=== PATIENT | female | born 1960 | race Caucasian/White ===

== ENCOUNTER 2016-06-04 16:14 | Inpatient (IN) | payer MEDICARE, OTHER ==
[~2016-06-04] VITALS: Ht 167.6 cm; Wt 121.6 kg
[2016-06-04] MEDS ORDERED: SOD CHLORIDE 0.9% 1,000 ML IV STA (16:43)
[2016-06-04] MEDS ORDERED: HYDROmorphONE 1 MG/ML SYG IV STA (16:43)
[2016-06-04] MEDS ORDERED: ONDANSETRON 4 MG INJ IV STA (16:43)
[2016-06-04 17:28] LABS: ADD SCAN DIFF NO
[2016-06-04 17:30] LABS: BASOPHILS % 0.4 % (0.0-2.0); EOSINOPHILS # 0.2 10^3/ul (0.0-0.5); EOSINOPHILS % 1.9 % (0.0-7.0); HEMATOCRIT 37.8 % (37.0-47.0); HEMOGLOBIN 12.5 g/dl (12.0-16.0); LYMPHOCYTES # 2.1 10^3/ul (0.8-2.9); LYMPHOCYTES % 23.3 % (15.0-51.0); MEAN CORPUSCULAR HEMOGLOBIN 30.5 pg (29.0-33.0); MEAN CORPUSCULAR HGB CONC 33.1 g/dl (32.0-37.0); MEAN CORPUSCULAR VOLUME 92.2 fl (82.0-101.0); MEAN PLATELET VOLUME 10.3 fl (7.4-10.4); MONOCYTE # 0.6 10^3/ul (0.3-0.9); MONOCYTES % 6.1 % (0.0-11.0); NEUTROPHIL # 6.2 10^3/ul (1.6-7.5); NEUTROPHILS % 68.1 % (39.0-77.0); PLATELET COUNT 246 10^3/UL (140-415); RED CELL DISTRIBUTION WIDTH 12.3 % (11.5-14.5); WHITE BLOOD COUNT 9.2 10^3/ul (4.8-10.8)
[2016-06-04 17:54] LABS: ALBUMIN 3.9 g/dl (3.3-4.9); BILIRUBIN,INDIRECT 0.1 mg/dl (0-1.1); BILIRUBIN,TOTAL 0.1 mg/dl (0.2-1.3); CALCIUM 9.5 mg/dl (8.4-10.2); CREATININE 0.86 mg/dl (0.44-1.00); POTASSIUM 3.6 mmol/L (3.5-5.1); TOTAL PROTEIN 7.4 g/dl (6.1-8.1)
[2016-06-04 17:55] LABS: ALBUMIN/GLOBULIN RATIO 1.11
--- NOTE | 2016-06-04 18:24 | RADRPT ---
PROCEDURE: CT scan of the abdomen and pelvis without IV contrast. CLINICAL INDICATION: Mid abdominal pain. TECHNIQUE: Thin section axial, coronal and sagittal images were performed through the abdomen and pelvis without contrast. Radiation Dose: CTDI: 23 and DLP: 1294. One or more of the following dose reduction techniques were used: - Automated exposure control. - Adjustment of the mA and/or kV according to patient size. Use of iterative reconstruction technique. COMPARISON: Chest x-ray 03/14/2016 06:18 a.m. FINDINGS: Soft tissues: Pain midline paraumbilical hernia is noted below.. Lungs and pleural spaces: There is peribronchial cuffing and pulmonary hyperinflation. There are pe ripheral areas of atelectasis in the right lower lobe. Heart: Normal. No pericardial effusion is noted. The epicardial fat pad is noted near the left hea rt border. The liver, common bile duct and gallbladder: The liver is enlarged measuring 19.5 cm AP. The gallbl adder surgically removed with clips in the juan daniel hepatis area. No intrahepatic biliary ductal dilat ation is identified. Gastrointestinal: There is a midline umbilical hernia which contains small bowel loops and omental f at measuring up to 5.7 cm sagittal by 3.3 cm AP by 7.9 cm. There is a area of increased attenuation inferior to the hernia of increased attenuation measuring 3.3 by 2 by 2.6 cm. This may be the resu lt of infarcted fat or phlegmonous change secondary to infection inferior to the hernia site at the level of the umbilicus. The stomach and small bowel loops have a normal caliber. No mechanical small-bowel obstruction is i dentified. There are diverticula in the sigmoid colon. There are bilateral inguinal hernias which contain fat but no intra-abdominal. The vermiform appendix is not clearly visualized but there is n o signs of appendicitis. Pancreas: Normal. Kidneys, bladder and adrenal glands : There is a 1.3 cm nonobstructive nephrolith with cortical scar ring adjacent to the nephrolith in the lateral portion of the lower third of the left kidney. There is a 1 mm in nonobstructive nephrolith in the ventral lower third of the right kidney. There is no evidence of hydronephrosis. No solid mass is identified. Spleen: Normal. Lymph nodes: Normal. A 5 mm normal lymph nodes identified just above the ventral aspect of the right diaphragm. Reproductive system and pelvis : The uterus is anteflexed a normal in size. There is a 1.3 CC intra mural lesion in the ventral lower uterine segment suspicious for a leiomyoma or Nabothian cyst. Bony elements: There are degenerative osteophytes in the thoracic and lumbosacral spine. No acute b cliff fracture or bone metastasis is identified. Vasculature: Normal. IMPRESSION: 1. There is a large midline. Umbilical hernia measuring 5.7 cm by 3.3 see by 7.9 cm containing ome ntal fat in entrap small bowel loops. Inferior to the hernia is an area of increased attenuation whi ch may be the result of phlegmonous change due to inflammation of the fat. A small abscess at this site is not excluded. 2. Hepatomegaly. 3. Diverticulosis of the sigmoid colon. 4. Enlarged bilateral inguinal hernias containing fat but no intra-abdominal. 5. The vermiform appendix is not visualized but there are no secondary signs of appendicitis. 6. 1.3 mm nonobstructive nephrolith upper lateral portion of the lower third of the left kidney. 1 mm nonobstructive nephrolith ventral upper portion lower third right kidney. 7. Nabothian cyst versus leiomyoma in the midline of the lower uterine segment. This is best isabelle cterize with a pelvic sonogram. 8. Normal pancreas. 9. Findings were phoned to Dr. Apple. RPTAT:AAJJ Physician Jasper Date Time Electronically viewed and signed by Physician Jasper on 06/04/2016 18:24 /
[2016-06-04] MEDS ORDERED: ONDANSETRON 4 MG INJ IV PRN (19:30)
[2016-06-04] MEDS ORDERED: ACETAMINOPHEN 325 MG TAB PO PRN (19:30)
--- NOTE | 2016-06-04 19:35 | ERA ---
ER Documentation Chief Complaint Date/Time DATE: 06/04/16 TIME: 19:32 Chief Complaint MID ABDOMINAL PAIN 10/10,NAUSEA STARTED TODAY HPI Patient is a 56-year-old female with no medical problems who presents with abdominal pain. She has upper abdominal pain that she feels might be another hernia. She said that she had a hernia surgery done 2013. The pain started 1 hour prior to arrival. The pain is constant and sharp in nature. She has had nausea but no vomiting. She has subjective fever. She has had no treatment as of yet. She does not know the name of her primary doctor. ROS All systems reviewed and are negative except as per history of present illness. Medications Home Meds No Active Prescriptions or Reported Meds Allergies Allergies: Coded Allergies: No Known Allergy (Unverified , 06/04/16) PMhx/Soc History of Surgery: Yes (umbilical hernia) Hx Neurological Disorder: No Hx Respiratory Disorders: No Hx Psychiatric Problems: No Hx Alcohol Use: No Hx Substance Use: No Hx Tobacco Use: No Smoking Status: Never smoker FmHx Family History: No diabetes Physical Exam Vitals Vital Signs Date Time Temp Pulse Resp B/P Pulse Ox O2 Delivery O2 Flow Rate FiO2 06/04/16 18:30 97.7 89 18 143/72 100 Room Air 06/04/16 17:22 96 24 139/76 97 Room Air 06/04/16 16:16 98.1 105 18 132/82 98 Physical Exam Const: Moderate distress secondary to pain Head: Atraumatic Eyes: Normal Conjunctiva ENT: Normal External Ears, Nose and Mouth. Neck: Full range of motion..~ No meningismus. Resp: Clear to auscultation bilaterally Cardio: Regular rate and rhythm, no murmurs Abd: Soft, periumbilical tenderness to palpation without rebound or guarding , obese Skin: No petechiae or rashes Back: No midline or flank tenderness Ext: No cyanosis, or edema Neur: Awake and alert Psych: Normal Mood and Affect Result Diagram: 06/04/16 1700 06/04/16 1700 Results 24 hrs Laboratory Tests Test 06/04/16 17:00 White Blood Count 9.210^3/ul Red Blood Count 4.1010^6/ul Hemoglobin 12.5g/dl Hematocrit 37.8% Mean Corpuscular Volume 92.2fl Mean Corpuscular Hemoglobin 30.5pg Mean Corpuscular Hemoglobin Concent 33.1g/dl Red Cell Distribution Width 12.3% Platelet Count 15659^3/UL Mean Platelet Volume 10.3fl Neutrophils % 68.1% Lymphocytes % 23.3% Monocytes % 6.1% Eosinophils % 1.9% Basophils % 0.4% Nucleated Red Blood Cells % 0.0/100WBC Neutrophils # 6.210^3/ul Lymphocytes # 2.110^3/ul Monocytes # 0.610^3/ul Eosinophils # 0.210^3/ul Basophils # 0.010^3/ul Nucleated Red Blood Cells # 0.010^3/ul Sodium Level 140mmol/L Potassium Level 3.6mmol/L Chloride Level 107mmol/L Carbon Dioxide Level 25mmol/L Anion Gap 12 Blood Urea Nitrogen 14mg/dl Creatinine 0.86mg/dl Glucose Level 119mg/dl Calcium Level 9.5mg/dl Total Bilirubin 0.1mg/dl Direct Bilirubin 0.00mg/dl Indirect Bilirubin 0.1mg/dl Aspartate Amino Transf (AST/SGOT) 14IU/L Alanine Aminotransferase (ALT/SGPT) 20IU/L Alkaline Phosphatase 89IU/L Total Protein 7.4g/dl Albumin 3.9g/dl Globulin 3.50g/dl Albumin/Globulin Ratio 1.11 Lipase 72U/L Current Medications Medications (Trade) Dose Ordered Sig/Mg Route PRN Reason Start Time Stop Time Status Last Admin Dose Admin Sodium Chloride (NS) 1,000 ml @ 1,000 mls/hr Q1H STAT IV 06/04/16 16:43 06/04/16 17:42 DC 06/04/16 17:44 Hydromorphone HCl (Dilaudid) 1 mg ONCE STAT IV 06/04/16 16:43 06/04/16 16:46 DC 06/04/16 17:43 Ondansetron HCl (Zofran Inj) 4 mg ONCE STAT IV 06/04/16 16:43 06/04/16 16:46 DC 06/04/16 17:43 Ondansetron HCl (Zofran Inj) 4 mg BRIDGE ORDER PRN IV NAUSEA AND/OR VOMITING 06/04/16 19:30 06/05/16 19:29 Acetaminophen (Tylenol Tab) 650 mg ER BRIDGE PRN PO MILD PAIN/FEVER 06/04/16 19:30 06/05/16 19:29 Procedures/MDM CT scan shows incarcerated hernia with small bowel per radiology. Patient is a 56-year-old female with previous hernia who presents with an incarcerated umbilical hernia. The patient will need admission to a medical surgical bed. I spoke with Dr. Jeffrey from the panel team for admission. I spoke with Dr. Sanchez who is a surgeon marketing communications manager. He will see the patient in consultation. The patient will have preoperative studies done. At this point I doubt appendicitis, cholecystitis, or pancreatitis. Departure Diagnosis: Primary Impression: Incarcerated hernia Additional Impression: Abdominal pain Qualified Code: R10.84 - Generalized abdominal pain Condition: MEREDITH Bailey MD Jun 04, 2016 19:35
[2016-06-05] VITALS (18 sets, daily range): BP systolic 132–179; BP diastolic 62–98; PULSE 70–86; RESP 14–26; TEMP 97.7; Ht 167.6 cm; Wt 121.6 kg
[2016-06-05] MEDS ORDERED: ONDANSETRON 4 MG INJ IV PRN ×3 (01:30→19:30)
[2016-06-05] MEDS: DEXTROSE 5%-0.45% NACL 1,000 ML IV SCH ×4 (02:46→21:30)
[2016-06-05] MEDS: morphine 4 MG/ML VIAL IV PRN (05:59)
[2016-06-05] MEDS ORDERED: CEFAZOLIN 1 GM INJ ONE (07:00)
[2016-06-05] MEDS ORDERED: metroNIDAZOLE 500 MG/100 ML NS IVPB ONE (07:00)
--- NOTE | 2016-06-05 07:02 | HP ---
DATE OF ADMISSION: 06/04/2016 TIME SEEN: 2300. CHIEF COMPLAINT: Abdominal pain. HISTORY OF PRESENT ILLNESS: The patient is a 56-year-old female with a history of an abdominal dipti ia repair over 2 years ago, who presented to the emergency department with abdominal pain x1 day. T he pain is diffuse and associated with nausea, but no vomiting. She denied any chest pain, shortnes s of breath or palpitations. When she presented to the ER she was tachycardic with a heart rate of 105. Otherwise the rest of he r vitals were stable. CT abdomen and pelvis showed a large midline umbilical hernia measuring 5.7 x 3.3 x 7.9 cm, containing omental fat in entrapped small bowel loops. Inferior to the hernia is an area of increased attenuation which may be the result of phlegmonous change due to inflammation of t he fat. A small abscess at the site is not excluded. Also noted were enlarged bilateral inguinal h ernias containing fat, but no intraabdominal. Diverticulosis of the sigmoid colon and hepatomegaly. A consult to the on-call surgeon, Dr. Sanchez, was placed by the ER physician. Her CBC and CMP are unremarkable. REVIEW OF SYSTEMS: A 12-point review of systems was performed and negative except as mentioned in th e HPI. PAST MEDICAL HISTORY: As per HPI. PAST SURGICAL HISTORY: Hernia repair in 2013. SOCIAL HISTORY: Denied a history of tobacco, alcohol or illicit drug abuse. ALLERGIES: KNOWN DRUG ALLERGIES. HOME MEDICATIONS: None. PHYSICAL EXAMINATION: VITAL SIGNS: Blood pressure 161/100, heart rate 87, respiratory rate 18, temperature earlier was 97 .7, oxygen saturation 100% on room air. GENERAL: The patient displays some distress due to abdominal pain. She is, however, alert, oriente d and answering questions appropriately. HEENT: No obvious head deformity. Extraocular muscles are intact. CARDIOVASCULAR: Tachycardic with a regular rhythm. LUNGS: Clear. ABDOMEN: Soft. There is tenderness to palpation diffusely, with no guarding, no rigidity. EXTREMITIES: No edema. NEUROLOGIC: No focal deficits. LABORATORY: CBC and CMP are within normal limits. IMAGING: CT abdomen and pelvis with results as mentioned in the HPI. IMPRESSION: 1. Incarcerated abdominal hernia. 2. Abdominal pain secondary to above. 3. History of hernia repair about 2 years ago. PLAN: Will keep n.p.o. Will place a NG tube to low intermittent suction. She will receive IV fluid . Will provide pain medication and antiemetics as needed. She is currently awaiting surgical evalu ation. Further workup and management per clinical course. Dictated By: CLAUDIA BRICENO/REGIS Conf#: [id number] DID#: [id number]
--- NOTE | 2016-06-05 08:06 | CONS ---
DATE OF ADMISSION: 06/04/2016 DATE OF CONSULTATION: SURGICAL CONSULTATION REASON FOR CONSULTATION: Incarcerated ventral incisional hernia. HISTORY OF PRESENT ILLNESS: The patient is a 56-year-old, morbidly obese patient, who presents to [facility] emergency room with sudden onset of abdominal wall pain. She had a ventral incisional hernia rep aired at [facility] in 2013. In the emergency room she was noted to have tenderness in the subcutaneous tissues above the incision and a CT scan showed incarcerated omentum and possible duncan l loops. The patient was admitted and surgical consultation was requested in that regard. She has had no visceral symptoms. She has had no fevers or chills. REVIEW OF SYSTEMS: HEAD, EYES, EARS, NOSE, THROAT: Unremarkable. PULMONARY: No history of pneumonia, shortness of breath or asthma. CARDIAC: No history of chest pain or NV. ABDOMEN: As in the HPI, and includes a history of laparoscopic cholecystectomy 5 years ago. OUTPATIENT MEDICATIONS: None. ALLERGIES: NONE. PHYSICAL EXAMINATION: GENERAL: The patient is a morbidly obese, 56-year-old female, who is in no acute distress. HEAD, EARS, EYES, NOSE, THROAT: Within normal limits. LUNGS: Clear. HEART: Regular rhythm. ABDOMEN: Obese. There is a well-healed lower vertical midline scar, including the umbilicus, which is slightly ulcerated. There is nonspecific fullness in the upper pole of the incision. EXTREMITIES: Unremarkable. LABORATORY DATA: The patient's hematocrit is 37.8, with a white count of 9,200. BUN, glucose and e lectrolytes are unremarkable. IMAGING: There is a large midline umbilical hernia measuring 5.7 cm x 7.9 cm, containing omental fat and entrapped small bowel loops. IMPRESSION: Incarcerated ventral incisional hernia, with no visceral symptoms. PLAN: The patient will require operative repair with possible bowel resection. The procedure and r isks have been outlined to the patient, who has an excellent understanding of the nature of her situ ation and agrees to the proposed plan of therapy, as outlined. Dictated By: ROMAINE BURNHAM/REGIS Conf#: [id number] DID#: [id number]
[2016-06-05] MEDS: FAMOTIDINE 20 MG INJ IV SCH ×2 (08:19→21:21)
--- NOTE | 2016-06-05 08:37 | RADRPT ---
PROCEDURE: Chest Radiograph. CLINICAL INDICATION: Preop TECHNIQUE: Single frontal chest radiograph. COMPARISON: None available FINDINGS: The cardiomediastinal silhouette is within normal limits. No infiltrate or effusion is seen. Th e bones are intact. IMPRESSION: 1. Unremarkable chest radiograph. RPTAT: KK .Xavier Cintron MD, MD Date Time Electronically viewed and signed by .Xavier Cintron MD, on 06/05/2016 08:37 .B/
[2016-06-05] MEDS ORDERED: BUPIVACAINE 0.25% (MPF) 30 ML INJ ONE (15:24)
--- NOTE | 2016-06-05 16:05 | PN ---
Date/Time of Note Date/Time of Note DATE: 06/05/16 TIME: 16:03 Assessment/Plan VTE Prophylaxis VTE Prophylaxis Intervention: SCD's Lines/Catheters IV [facility]ter [facility] (from [facility]): Peripheral IV Urinary Cath still in place: No Assessment/Plan Chief Complaint/Hosp Course Assessment and plan 1. Incarcerated abdominal hernia. Surgeon following. Tentative plan for surgical intervention. Continue on IV fluids. npo for now. Continue with analgesics as needed 2. Morbid obesity. Weight reduction advised. 3. Abdominal pain secondary to #1. Follow-up with surgeon recommendations. 4. History of umbilical hernia repair 2 years ago Disposition and plan: Tentative plan for surgical intervention. Follow-up with surgeon and recommendations. Follow up postop care Discussed at care with Problems: Subjective 24 Hr Interval Summary Free Text/Dictation Still reports having some abdominal discomfort. Exam/Review of Systems Vital Signs Vitals Vital Signs Date Time Temp Pulse Resp B/P Pulse Ox O2 Delivery O2 Flow Rate FiO2 06/05/16 08:13 97.4 79 20 132/62 96 06/05/16 00:41 Room Air Intake and Output 06/04/16 06/04/16 06/05/16 15:00 23:00 07:00 Intake Total 400 ml Balance 400 ml Exam General: Reports having some abdominal pain, morbidly obese Eyes: pupils equal round, Anicteric sclera Neck: Supple nontender, no JVD Cardiac: S1, S2 auscultated, regular rhythm and rate Pulmonary: No coarse rhonchi or breathing auscultated GI: Treatment. Tender upon palpation above umbilical area Extremities: No edema bilateral lower extremities Skin: Clean dry and intact Neurologic: Alert to person place and time and situation Results Result Diagram: 06/04/16 1700 06/04/16 1700 Results 24 hrs Laboratory Tests Test 06/04/16 17:00 White Blood Count 9.2 Red Blood Count 4.10 L Hemoglobin 12.5 Hematocrit 37.8 Mean Corpuscular Volume 92.2 Mean Corpuscular Hemoglobin 30.5 Mean Corpuscular Hemoglobin Concent 33.1 Red Cell Distribution Width 12.3 Platelet Count 246 Mean Platelet Volume 10.3 Neutrophils % 68.1 Lymphocytes % 23.3 Monocytes % 6.1 Eosinophils % 1.9 Basophils % 0.4 Nucleated Red Blood Cells % 0.0 Neutrophils # 6.2 Lymphocytes # 2.1 Monocytes # 0.6 Eosinophils # 0.2 Basophils # 0.0 Nucleated Red Blood Cells # 0.0 Sodium Level 140 Potassium Level 3.6 Chloride Level 107 Carbon Dioxide Level 25 Anion Gap 12 Blood Urea Nitrogen 14 Creatinine 0.86 Glucose Level 119 Calcium Level 9.5 Total Bilirubin 0.1 L Direct Bilirubin 0.00 Indirect Bilirubin 0.1 Aspartate Amino Transf (AST/SGOT) 14 L Alanine Aminotransferase (ALT/SGPT) 20 Alkaline Phosphatase 89 Total Protein 7.4 Albumin 3.9 Globulin 3.50 H Albumin/Globulin Ratio 1.11 Lipase 72 Medications Medications Current Medications Ondansetron HCl (Zofran Inj) 4 mg Q6H PRN IV NAUSEA AND/OR VOMITING; Start at 01:30 Morphine Sulfate 3 mg 3 mg Q4H PRN IV pain Last administered on 06/05/16 05:59 ; Admin Dose 3 MG; Start 06/05/16 at 01:30 Dextrose/Sodium Chloride (D5-1/2ns) 1,000 ml @ 100 mls/hr Q10H IV Last administered on 06/05/16 15:31; Admin Dose 100 MLS/HR; Start 06/05/16 at 01:30 Famotidine (Pepcid Iv) 20 mg BID IV Last administered on 06/05/16 08:19; Admin Dose 20 MG; Start 06/05/16 at 09:00 MICHELLE DE LA CRUZ Jun 05, 2016 16:05
--- NOTE | 2016-06-05 17:30 | RADRPT ---
Vent Rate: 72 bpm RR Interval: 0 msec VT Interval: 158 msec QRS Duration: 86 msec QT Interval: 384 msec QTC Interval: 420 msec P-R-T [place]: 59 - 22 - 50 degrees Normal sinus rhythm Normal ECG Electronically Signed By: Grayson Colmenares [id number]
[2016-06-05] MEDS ORDERED: ROCURONIUM 50 MG INJ ONE (17:55)
[2016-06-05] MEDS ORDERED: SUCCINYLCHOLINE CHLORIDE 100 MG/5 ML SYG IV ONE (17:55)
[2016-06-05] MEDS ORDERED: PROPOFOL 40 ML ONE (17:55)
[2016-06-05] MEDS ORDERED: LIDOCAINE 2% (SDV) 5 ML INJ ONE (17:55)
[2016-06-05] MEDS ORDERED: MIDAZOLAM 1 MG/ML 2 ML INJ ONE (17:56)
[2016-06-05] MEDS ORDERED: PHENYLephrine (100 MCG/ML) 5ML SYG ONE (18:01)
[2016-06-05] MEDS ORDERED: DEXAMETHASONE 4 MG/ML 1 ML INJ ONE (18:01)
[2016-06-05] MEDS ORDERED: ONDANSETRON 4 MG INJ ONE (18:01)
--- NOTE | 2016-06-05 19:25 | OPR ---
DATE OF OPERATION: 06/05/2016 PREOPERATIVE DIAGNOSES: Incarcerated ventral incisional hernia, secondary small-bowel obstruction. OPERATION PERFORMED: 1. Release of small-bowel obstruction. 2. Repair of recurrent ventral incisional hernia with large circular Ventralex patch. POSTOPERATIVE DIAGNOSES: Incarcerated ventral incisional hernia, secondary small-bowel obstruction. SURGEON: Romaine Sanchez MD ANESTHESIA: General. OPERATIVE REPORT: After satisfactory general anesthesia was achieved, the abdomen was prepped and d raped in the usual fashion. A vertical skin incision was made through the previous midline scar whi ch extended 4 cm above and below the umbilicus. The incision was carried down to the level of what appeared to be mesh. The mesh was floating and beneath the mesh was a sac. The mesh and sac were e xcised with electrocautery and submitted. This exposed A 3 cm fascial defect with small-bowel withi n the defect. The small-bowel was viable and easily reduced. A large circular Ventralex patch was placed below the fascial defect as an underlay and secured to healthy fascia with interrupted #1 Pro mejia suture. The ____ redundant mesh straps were excised and discarded. The resultant repair was a tension-free underlie underlay repair. The wound was infiltrated with 20 mL of 0.25% plain Marcain e. Subcutaneous was closed with interrupted 2-0 Vicryl suture and the skin closed with mi. Op erative blood loss less than 20 mL. Sponge and needle and instrument counts were reported as correct x2. The patient tolerated the procedure well and without incident or complication. Dictated By: ROMAINE BURNHAM/REGIS Conf#: [id number] DID#: [id number]
[2016-06-05] MEDS ORDERED: TRIMETHOBENZAMIDE 100 MG/ML VIAL IM PRN (19:30)
[2016-06-05] MEDS ORDERED: PROCHLORPERAZINE 10 MG INJ IV PRN (19:30)
[2016-06-05] MEDS ORDERED: EPHEDrine SULFATE 50 MG/5 ML SYG IV PRN (19:30)
[2016-06-05] MEDS ORDERED: morphine 2 MG INJ IV PRN (19:30)
[2016-06-05] MEDS ORDERED: OXYCODONE/ACETAMINOPHEN (5/325) TAB PO PRN ×3 (19:30)
[2016-06-05] MEDS ORDERED: METOCLOPRAMIDE 10 MG INJ IV PRN (19:30)
[2016-06-05] MEDS ORDERED: HYDROmorphONE (0.2 MG/ML) 10ML SYG IV PRN ×2 (19:30)
[2016-06-05] MEDS ORDERED: hydrALAzine 20 MG INJ IV PRN (19:30)
[2016-06-05] MEDS ORDERED: HYDROmorphONE (0.2 MG/ML) 10ML SYG IV ONE (19:32)
[2016-06-05] MEDS: HYDROmorphONE (0.2 MG/ML) 10ML SYG IV PRN ×2 (19:56→19:57)
[2016-06-06] MEDS: morphine 4 MG/ML VIAL IV PRN ×3 (01:07→12:52)
[2016-06-06] MEDS: DEXTROSE 5%-0.45% NACL 1,000 ML IV SCH ×2 (02:41→12:54)
[2016-06-06 06:46] LABS: ADD SCAN DIFF NO
[2016-06-06 06:52] LABS: BASOPHILS % 0.2 % (0.0-2.0); HEMOGLOBIN 11.5 g/dl (12.0-16.0); LYMPHOCYTES # 0.7 10^3/ul (0.8-2.9); LYMPHOCYTES % 11.1 % (15.0-51.0); MEAN CORPUSCULAR HEMOGLOBIN 29.9 pg (29.0-33.0); MEAN CORPUSCULAR HGB CONC 31.9 g/dl (32.0-37.0); MEAN CORPUSCULAR VOLUME 93.5 fl (82.0-101.0); MEAN PLATELET VOLUME 10.7 fl (7.4-10.4); MONOCYTE # 0.2 10^3/ul (0.3-0.9); MONOCYTES % 2.4 % (0.0-11.0); NEUTROPHIL # 5.7 10^3/ul (1.6-7.5); PLATELET COUNT 233 10^3/UL (140-415); RED BLOOD COUNT 3.85 10^6/ul (4.20-5.40); RED CELL DISTRIBUTION WIDTH 12.1 % (11.5-14.5); WHITE BLOOD COUNT 6.6 10^3/ul (4.8-10.8)
[2016-06-06 07:15] LABS: ALBUMIN 3.4 g/dl (3.3-4.9); BILIRUBIN,INDIRECT 0.1 mg/dl (0-1.1); BILIRUBIN,TOTAL 0.1 mg/dl (0.2-1.3); CREATININE 0.75 mg/dl (0.44-1.00); MAGNESIUM 2.2 mg/dl (1.7-2.5); PHOSPHORUS 4.1 mg/dl (2.5-4.9); POTASSIUM 4.4 mmol/L (3.5-5.1); TOTAL PROTEIN 6.8 g/dl (6.1-8.1)
[2016-06-06 07:56] VITALS: BP 129/67; RESP 22
[2016-06-06] MEDS: FAMOTIDINE 20 MG INJ IV SCH (10:15)
[2016-06-06] MEDS: OXYCODONE/ACETAMINOPHEN (5/325) TAB PO PRN ×2 (10:15→19:08)
--- NOTE | 2016-06-06 15:34 | PN ---
Date/Time of Note Date/Time of Note DATE: 06/06/16 TIME: 15:20 Assessment/Plan VTE Prophylaxis VTE Prophylaxis Intervention: SCD's Lines/Catheters IV [facility]from [facility] Peripheral IV Urinary Cath still in place: No Assessment/Plan Chief Complaint/Hosp Course Assessment and plan 1. Incarcerated abdominal hernia. Surgeon following.Status post release of small bowel obstruction and repair of recurrent ventral incisional hernia with large circular ventralex patch. cont with analgesics. 2. Morbid obesity. Weight reduction advised. 3. Abdominal pain secondary to #1. Follow-up with surgeon recommendations. 4. History of umbilical hernia repair 2 years ago Disposition and plan: continue post-op care. advance diet per surgeon recs. d/c when cleared by consultants Discussed at of care with Problems: Subjective 24 Hr Interval Summary Free Text/Dictation Status post surgical intervention for abdomen. Does report able to tolerate oral intake well. Exam/Review of Systems Vital Signs Vitals Vital Signs Date Time Temp Pulse Resp B/P Pulse Ox O2 Delivery O2 Flow Rate FiO2 06/06/16 07:56 98.4 77 22 129/67 96 06/05/16 20:32 Nasal Cannula 2.0 Intake and Output 06/05/16 06/05/16 06/06/16 15:00 23:00 07:00 Intake Total 2250 ml 1410 ml Output Total 23 ml Balance 2227 ml 1410 ml Exam Constitutional: alert, oriented Psych: nl mood/affect Head: normocephalic Neck: non-tender, supple, No jvd Respiratory: clear to auscultation, normal air movement Cardiovascular: regular rate and rhythm Gastrointestinal: other (obese. Minimally tender on palpation secondary to recent surgery) Musculoskeletal: nl extremities to inspection Neurological: CLUSTER BORE OPERATOR II-XII intact, nl mental status, nl speech Skin: other (surgical site abdomen clean dry and intact) Results Result Diagram: 06/06/16 0535 06/06/16 0535 Results 24 hrs Laboratory Tests Test 06/06/16 05:35 White Blood Count 6.6 # Red Blood Count 3.85 L Hemoglobin 11.5 L Hematocrit 36.0 L Mean Corpuscular Volume 93.5 Mean Corpuscular Hemoglobin 29.9 Mean Corpuscular Hemoglobin Concent 31.9 L Red Cell Distribution Width 12.1 Platelet Count 233 Mean Platelet Volume 10.7 H Neutrophils % 86.0 H Lymphocytes % 11.1 L Monocytes % 2.4 Eosinophils % 0.0 Basophils % 0.2 Nucleated Red Blood Cells % 0.0 Neutrophils # 5.7 Lymphocytes # 0.7 L Monocytes # 0.2 L Eosinophils # 0.0 Basophils # 0.0 Nucleated Red Blood Cells # 0.0 Sodium Level 137 Potassium Level 4.4 Chloride Level 107 Carbon Dioxide Level 23 Anion Gap 11 Blood Urea Nitrogen 11 Creatinine 0.75 Glucose Level 160 Calcium Level 9.0 Phosphorus Level 4.1 Magnesium Level 2.2 Total Bilirubin 0.1 L Direct Bilirubin 0.00 Indirect Bilirubin 0.1 Aspartate Amino Transf (AST/SGOT) 16 Alanine Aminotransferase (ALT/SGPT) 26 Alkaline Phosphatase 81 Total Protein 6.8 Albumin 3.4 Globulin 3.40 H Albumin/Globulin Ratio 1.00 Medications Medications Current Medications Morphine Sulfate 3 mg 3 mg Q4H PRN IV pain Last administered on 06/06/16 12:52 ; Admin Dose 3 MG; Start 06/05/16 at 01:30 Dextrose/Sodium Chloride (D5-1/2ns) 1,000 ml @ 100 mls/hr Q10H IV Last administered on 06/06/16 12:54; Admin Dose 100 MLS/HR; Start 06/05/16 at 01:30 Famotidine (Pepcid Iv) 20 mg BID IV Last administered on 06/06/16 10:15; Admin Dose 20 MG; Start 06/05/16 at 09:00 Oxycodone/ Acetaminophen (Percocet (5/ 325)) 1 tab Q4H PRN PO MILD PAIN (1-3); Start 06/05/16 at 19:30 Oxycodone/ Acetaminophen (Percocet (5/ 325)) 2 tab Q4H PRN PO MODERATE PAIN (4- 6) Last administered on 06/06/16 10:15; Admin Dose 2 TAB; Start 06/05/16 at 19: 30 Morphine Sulfate (morphine) 2 mg ONCE PRN IV SEVERE PAIN LEVEL 7-10; Start 06/05 at 19:30 Ondansetron HCl (Zofran Inj) 4 mg Q6H PRN IV NAUSEA; Start 06/05/16 at 19:30 MICHELLE DE LA CRUZ Jun 06, 2016 15:31
--- NOTE | 2016-06-06 16:01 | PN ---
DATE: 06/06/2016 This is a surgical progress note, postoperative day #1. The patient is markedly symptomatically imp roved. She is ambulating, tolerating liquids and had a bowel movement. OBJECTIVE: ABDOMEN: Benign. LABORATORY DATA: Hematocrit 36, white count of 6600 with slight left shift with 86 polys. IMPRESSION: Markedly improved. PLAN: Patient is discharged from surgical standpoint and should follow up with me in 1 week. Dictated By: ROMAINE BURNHAM/REGIS Conf#: [id number] DID#: [id number]
--- NOTE | 2016-06-06 17:09 | PDOCDIS ---
Discharge Instructions DIAGNOSIS Discharge Diagnosis: 1. Inca rcerated abdominal hernia 2. Morbid obesity 3. History of umbilic CONDITION Patient Condition: Stable HOME CARE INSTRUCTIONS: Diet Instructions: Low Fat /CholesterolSpecial Diet: 1800 calorie ACTIVITY: Activity Restrictions: Slowly Increase Activity Rest between Activity Avoid heavy lifting FOLLOW UP/APPOINTMENTS Appointments 1. Follow up with Dr. Juan C Sanchez in one week MICHELLE DE LA CRUZ Jun 06, 2016 17:09
[2016-06-06] MEDS ORDERED: Oxycodone/Acetamin (5/325) PO (17:13)
[2016-06-06] MEDS ORDERED: SENN-53 PO (17:13)
[2016-06-06] MEDS ORDERED: DOCU-144 PO (17:13)
[2016-06-06 19:31] VITALS: BP 137/66; RESP 18
== END 2016-06-06 20:40 | disposition home or self-care (01) | DRG 354 ==
LOC: E/R 16:14 → MS2 19:06
PROVIDERS: ADMIT Internal Medicine; ATTEND Internal Medicine
PROC: 0WPF0JZ Removal of Synthetic Substitute from Abdominal Wall, Open Approach (ICD-10-PCS; principal; 2016-06-05 16:00)
PROC: 0WUF0JZ Supplement Abdominal Wall with Synthetic Substitute, Open Approach (ICD-10-PCS; principal; 2016-06-05 16:00)
DX: K43.0 Incisional hernia with obstruction, without gangrene (principal); Z68.41 Body mass index [BMI] 40.0-44.9, adult; E66.01 Morbid (severe) obesity due to excess calories; K45.0 Other specified abdominal hernia with obstruction, without gangrene; K21.9 Gastro-esophageal reflux disease without esophagitis; Z98.890 Other specified postprocedural states
CPT/HCPCS: 36415; 71010; 74176; 80053; 83690; 83735; 84100; 85025; 88302; 93005; 96374; 96375; C1781; J0330; J0360; J0690; J1100; J1170; J2250; J2270; J2370; J2405; J3010; J7030; J7042

== ENCOUNTER 2016-06-12 11:31 | Emergency (ER) | payer MEDICARE, OTHER ==
[~2016-06-12] VITALS: Wt 123.5 kg
[~2016-06-12 11:31] MED LIST: DOCU-144 PO; Oxycodone/Acetamin (5/325) PO; SENN-53 PO
== END 2016-06-12 16:14 | disposition left against medical advice (07) ==
LOC: E/R 11:31
DX: Z53.21 Procedure and treatment not carried out due to patient leaving prior to being seen by health care provider (principal)

== ENCOUNTER 2016-06-13 15:36 | Emergency (ER) | payer MEDICARE, OTHER ==
[~2016-06-13] VITALS: Wt 107.0 kg
[2016-06-13] MEDS ORDERED: morphine 4 MG/ML VIAL IV STA (16:42)
[2016-06-13] MEDS ORDERED: ONDANSETRON 4 MG INJ IV STA (16:42)
[2016-06-13] MEDS ORDERED: SOD CHLORIDE 0.9% 1,000 ML IV STA (16:42)
[2016-06-13 17:17] LABS: ADD SCAN DIFF NO
[2016-06-13 17:21] LABS: BASOPHIL # 0.1 10^3/ul (0.0-0.1); BASOPHILS % 0.8 % (0.0-2.0); EOSINOPHILS # 0.5 10^3/ul (0.0-0.5); EOSINOPHILS % 5.6 % (0.0-7.0); HEMATOCRIT 38.9 % (37.0-47.0); HEMOGLOBIN 12.7 g/dl (12.0-16.0); LYMPHOCYTES # 1.9 10^3/ul (0.8-2.9); LYMPHOCYTES % 22.3 % (15.0-51.0); MEAN CORPUSCULAR HEMOGLOBIN 30.3 pg (29.0-33.0); MEAN CORPUSCULAR HGB CONC 32.6 g/dl (32.0-37.0); MEAN CORPUSCULAR VOLUME 92.8 fl (82.0-101.0); MEAN PLATELET VOLUME 10.3 fl (7.4-10.4); MONOCYTE # 0.8 10^3/ul (0.3-0.9); MONOCYTES % 9.6 % (0.0-11.0); NEUTROPHIL # 5.2 10^3/ul (1.6-7.5); NEUTROPHILS % 61.3 % (39.0-77.0); PLATELET COUNT 323 10^3/UL (140-415); RED BLOOD COUNT 4.19 10^6/ul (4.20-5.40); RED CELL DISTRIBUTION WIDTH 12.4 % (11.5-14.5); WHITE BLOOD COUNT 8.4 10^3/ul (4.8-10.8)
[2016-06-13] MEDS ORDERED: IOHEXOL 300MG/ML 150 ML BTL ONE (17:34)
[2016-06-13] MEDS ORDERED: SOD CHLORIDE 0.9% 100 ML ONE (17:34)
[2016-06-13 17:39] LABS: ALBUMIN 3.7 g/dl (3.3-4.9)
[2016-06-13 17:40] LABS: POTASSIUM 3.7 mmol/L (3.5-5.1)
[2016-06-13 17:42] LABS: BILIRUBIN,INDIRECT 0.2 mg/dl (0-1.1); BILIRUBIN,TOTAL 0.2 mg/dl (0.2-1.3); CREATININE 0.93 mg/dl (0.44-1.00)
[2016-06-13 17:43] LABS: ALBUMIN/GLOBULIN RATIO 1.05; CALCIUM 9.4 mg/dl (8.4-10.2); TOTAL PROTEIN 7.2 g/dl (6.1-8.1)
--- NOTE | 2016-06-13 18:52 | RADRPT ---
PROCEDURE: CT Abdomen and Pelvis with Contrast CLINICAL INDICATION: Abdominal pain TECHNIQUE: Transaxial images were obtained through the abdomen and pelvis on a multi-slice scanner following the intravenous administration of iodinated contrast. No oral contrast had previously be en given. Sagittal and coronal re-formations were subsequently reconstructed. One or more of the following dose reduction techniques were used: - Automated exposure control. - Adjustment of the mA and/or kV according to patient size. - Use of iterative reconstruction technique. Radiation dose: CTDIvol = 23.10 mGy; DLP = 1301.97 mGy-cm. COMPARISON: 06/04/2016 FINDINGS: Lung bases: The visualized lung bases appear unremarkable. Liver: The liver remains mildly enlarged with no focal lesion identified. The hepatic and portal ve ins are patent. Gallbladder: Surgical mi are seen in the gallbladder fossa. Bile ducts: The intra and extrahepatic bile ducts are normal in caliber. Pancreas: Appears normal with no mass or inflammation evident. Spleen: Normal in size with no focal lesion. Adrenals: Normal with no mass identified. Kidneys, ureters and bladder: There is mild cortical scarring involving the lateral inferior pole le ft kidney with metallic artifact which may represent a surgical clip. No mass or intra renal calcif ication is evident and there is no hydronephrosis. The ureters are unremarkable wall the bladder is poorly distended. Reproductive organs: The uterus is midline. A 1.5 cm Nabothian cyst is evident. There is 8-0.3 cm left adnexal cyst. Stomach, bowel, and mesentery: The stomach is moderately distended with fluid and food debris. Ther e is no evidence of bowel obstruction or inflammation. The krysten umbilical abdominal wall hernia has been repaired. Appendix: The vermiform appendix is not discretely identified. Peritoneum: No free intraperitoneal fluid or air is identified. Moderate-sized bilateral fat contain ing inguinal hernias are evident. Aorta: Normal in caliber with no aneurysmal dilatation. IVC: Unremarkable. Lymph nodes: No pathologically enlarged nodes are identified. Osseous structures: Moderate degenerative spine changes are again noted. Soft tissues: There is been interval development of the 16.5 by 14.8 x 4.8 cm fluid collection seen within the midline anterior subcutaneous fat deep to vertically oriented midline surgical mi m easuring water density most compatible with a seroma. IMPRESSION: 1. Since the previous CT of 06/04/2016, the krysten umbilical abdominal hernia has been repaired, but there is now and a 16.5 x 14.8 x 4.8 cm fluid collections seen within the anterior subcutaneous fat deep to the vertically oriented abdominal mi most compatible with a seroma. 2. There is no evidence of bowel obstruction or inflammation. The stomach is moderately distended with fluid and food debris and the vermiform appendix is not identified. 3. Moderate-sized bilateral fat containing inguinal hernias are again evident. 4. Mild hepatomegaly with no focal lesion. 5. A 1.5 cm Nabothian cyst is seen in the cervix and a 2.3 cm left adnexal cyst is evident. 6. Moderate degenerative spine changes are again noted. Physician Conor Date Time Electronically viewed and signed by Physician Conor on 06/13/2016 18:52 /
--- NOTE | 2016-06-13 19:18 | ERA ---
ER Documentation Chief Complaint Date/Time DATE: 06/13/16 TIME: 19:15 Chief Complaint s/p hernia repair 1 week ago, AP nausea and vomiting onset last night. abd HPI Patient is a 56-year-old female with hernia repair recently presents with abdominal pain. She had a recent hernia surgery by Dr. Eugene. She said the last night she started with abdominal pain. She had subjective fever. She has had no treatment as of yet. The pain is constant. The patient does not currently have a primary doctor. ROS All systems reviewed and are negative except as per history of present illness. Medications Home Meds Discontinued Scripts Sennosides* (Senna Lax*) 8.6 Mg Tablet, 1 TAB PO Q12H Y for CONSTIPATION, #40 TAB Prov:MICHELLE DE LA CRUZ 06/06/16 Docusate Sodium* (Colace*) 100 Mg Capsule, 200 MG PO BID, #60 CAP Prov:MICHELLE DE LA CRUZ 06/06/16 [Oxycodone/Acetamin (5/325)] 1 TAB TAB No Conflict Check, 2 TAB PO Q4H Y for MODERATE PAIN (4-6), #30 Prov:MICHELLE DE LA CRUZ 06/06/16 Allergies Allergies: Coded Allergies: No Known Allergy (Unverified , 06/13/16) PMhx/Soc History of Surgery: Yes (Gallbladder sx Mar 2011, Hernia sx May 2013) Anesthesia Reaction: No Hx Neurological Disorder: No Hx Respiratory Disorders: No Hx Cardiac Disorders: No Hx Psychiatric Problems: No Hx Alcohol Use: No Hx Substance Use: No Hx Tobacco Use: No Smoking Status: Current every day smoker FmHx Family History: No diabetes Physical Exam Vitals Vital Signs Date Time Temp Pulse Resp B/P Pulse Ox O2 Delivery O2 Flow Rate FiO2 06/13/16 15:44 97.5 106 20 143/91 95 Physical Exam Const: Mild distress secondary to pain Head: Atraumatic Eyes: Normal Conjunctiva ENT: Normal External Ears, Nose and Mouth. Neck: Full range of motion..~ No meningismus. Resp: Clear to auscultation bilaterally Cardio: Regular rate and rhythm, no murmurs Abd: Soft, obese abdomen, incision is clean dry and intact without signs of infection Skin: No signs of infection of the abdominal incision Back: No midline or flank tenderness Ext: No cyanosis, or edema Neur: Awake and alert Psych: Normal Mood and Affect Result Diagram: 06/13/16 1705 06/13/16 1705 Results 24 hrs Laboratory Tests Test 06/13/16 17:05 White Blood Count 8.410^3/ul Red Blood Count 4.1910^6/ul Hemoglobin 12.7g/dl Hematocrit 38.9% Mean Corpuscular Volume 92.8fl Mean Corpuscular Hemoglobin 30.3pg Mean Corpuscular Hemoglobin Concent 32.6g/dl Red Cell Distribution Width 12.4% Platelet Count 40585^3/UL Mean Platelet Volume 10.3fl Neutrophils % 61.3% Lymphocytes % 22.3% Monocytes % 9.6% Eosinophils % 5.6% Basophils % 0.8% Nucleated Red Blood Cells % 0.0/100WBC Neutrophils # 5.210^3/ul Lymphocytes # 1.910^3/ul Monocytes # 0.810^3/ul Eosinophils # 0.510^3/ul Basophils # 0.110^3/ul Nucleated Red Blood Cells # 0.010^3/ul Sodium Level 145mmol/L Potassium Level 3.7mmol/L Chloride Level 106mmol/L Carbon Dioxide Level 28mmol/L Anion Gap 15 Blood Urea Nitrogen 14mg/dl Creatinine 0.93mg/dl Glucose Level 75mg/dl Calcium Level 9.4mg/dl Total Bilirubin 0.2mg/dl Direct Bilirubin 0.00mg/dl Indirect Bilirubin 0.2mg/dl Aspartate Amino Transf (AST/SGOT) 14IU/L Alanine Aminotransferase (ALT/SGPT) 18IU/L Alkaline Phosphatase 80IU/L Total Protein 7.2g/dl Albumin 3.7g/dl Globulin 3.50g/dl Albumin/Globulin Ratio 1.05 Lipase 61U/L Current Medications Medications (Trade) Dose Ordered Sig/Mg Route PRN Reason Start Time Stop Time Status Last Admin Dose Admin Sodium Chloride (NS) 1,000 ml @ 1,000 mls/hr Q1H STAT IV 06/13/16 16:42 06/13/16 17:41 DC 06/13/16 17:07 Morphine Sulfate (morphine) 4 mg ONCE STAT IV 06/13/16 16:42 06/13/16 16:43 DC 06/13/16 17:08 Ondansetron HCl (Zofran Inj) 4 mg ONCE STAT IV 06/13/16 16:42 06/13/16 16:43 DC 06/13/16 17:08 IV Flush 10 ml 10 ml STK-MED ONCE .ROUTE 06/13/16 17:34 06/13/16 17:35 DC 06/13/16 18:30 Sodium Chloride (NS) 100 ml @ ud STK-MED ONCE .ROUTE 06/13/16 17:34 06/13/16 17:35 DC 06/13/16 18:30 Iohexol (Omnipaque 300mg/ ml) 150 ml STK-MED ONCE .ROUTE 06/13/16 17:34 06/13/16 17:35 DC 06/13/16 18:30 Procedures/MDM CT scan shows seroma per radiology but no signs of obstruction or intra- abdominal abscess. She is a 56-year-old female with hernia repair recently who presents with abdominal pain. Laboratory studies were normal including a normal white blood cell count. I doubt intra-abdominal abscess. I doubt bowel obstruction or appendicitis. I do believe the patient has a seroma and I did encourage close follow-up with Dr. Eugene within 24-48 hours for reevaluation. However the seroma may resolve by itself over time as well. I do not believe the patient requires antibiotics at this time. She can return for any worsening symptoms. Departure Diagnosis: Primary Impression: Seroma Additional Impression: Abdominal pain Qualified Code: R10.84 - Generalized abdominal pain Condition: Fair Patient Instructions: Abdominal Pain, Seroma, Postsurgical Referrals: ROMAINE EUGENE MD Additional Instructions: SPECIALIST: YOU HAVE A MEDICAL CONDITION WHICH REQUIRES YOU TO SEE A SPECIALIST WITHIN THE NEXT 1-2 DAYS. PLEASE FOLLOW UP WITH YOUR PRIMARY PHYSICIAN FOR REFFERAL.IF YOU DO NOT HAVE A PRIMARY CARE PHYSICIAN AND/OR YOU CAN NOT AFFORD TO SEE A PHYSICIAN THE FOLLOWING RESOURCES HAVE BEEN SUPPLIED TO YOU. IT IS YOUR RESPONSIBILITY TO BE SEEN BY THE SPECIALIST MEREDITH ERNST MD June 13, 2016 19:18
[2016-06-13 19:44] VITALS: BP 135/85; PULSE 84; RESP 20; TEMP 98.1
[2016-06-14] MEDS ORDERED: HYDR-902 PO (12:58)
== END 2016-06-13 19:47 | disposition home or self-care (01) ==
LOC: E/R 15:36
DX: K91.872 Postprocedural seroma of a digestive system organ or structure following a digestive system procedure (principal); R10.84 Generalized abdominal pain
CPT/HCPCS: 36415; 74177; 80053; 83690; 85025; 96374; 96375; 99285; J2270; J2405; J7030; Q9967

== ENCOUNTER 2016-06-14 12:23 | Emergency (ER) | payer MEDICARE, OTHER ==
[~2016-06-14] VITALS: Ht 157.5 cm; Wt 125.0 kg
[2016-06-14 12:28] VITALS: Ht 157.5 cm; Wt 125.0 kg
[2016-06-14] MEDS ORDERED: HYDR-902 PO (12:58)
[2016-06-14 13:14] VITALS: BP 147/77; PULSE 106; RESP 20
--- NOTE | 2016-06-14 14:31 | ERD ---
ER Documentation Chief Complaint Date/Time DATE: 06/14/16 TIME: 14:29 Chief Complaint WOUND CHECK, AP HPI Patient is a 56-year-old female who had recent hernia surgery who presents with pain at her surgical site. She has had pain since the surgery. She has no fevers. She was seen yesterday by myself for the same and had a full workup including laboratory studies and CT scan of the abdomen and pelvis which showed a seroma. The patient was instructed to follow-up with Dr. Eugene the surgeon but she has not followed up as of yet. She has not taken anything for pain today. ROS All systems reviewed and are negative except as per history of present illness. Medications Home Meds Active Scripts Hydrocodone/Acetaminophen ([place] 10-325 Tablet) 1 Each Tablet, 1 TAB PO Q6H Y for PAIN, #7 TAB Prov:MEREDITH ERNST MD 06/14/16 Discontinued Scripts Sennosides* (Senna Lax*) 8.6 Mg Tablet, 1 TAB PO Q12H Y for CONSTIPATION, #40 TAB Prov:MICHELLE DE LA CRUZ 06/06/16 Docusate Sodium* (Colace*) 100 Mg Capsule, 200 MG PO BID, #60 CAP Prov:MICHELLE DE LA CRUZ 06/06/16 [Oxycodone/Acetamin (5/325)] 1 TAB TAB No Conflict Check, 2 TAB PO Q4H Y for MODERATE PAIN (4-6), #30 Prov:MICHELLE DE LA CRUZ 06/06/16 Allergies Allergies: Coded Allergies: No Known Allergy (Unverified , 06/13/16) PMhx/Soc Medical and Surgical Hx: Unable to obtain History of Surgery: Yes (Gallbladder sx Mar 2011, Hernia sx May 2013) Anesthesia Reaction: No Hx Neurological Disorder: No Hx Respiratory Disorders: No Hx Cardiac Disorders: No Hx Psychiatric Problems: No Hx Alcohol Use: No Hx Substance Use: No Hx Tobacco Use: No Smoking Status: Never smoker FmHx Family History: No diabetes Physical Exam Vitals Vital Signs Date Time Temp Pulse Resp B/P Pulse Ox O2 Delivery O2 Flow Rate FiO2 06/14/16 13:14 106 20 147/77 97 Room Air 06/14/16 12:28 98.1 85 20 151/70 99 Physical Exam Const: No acute distress Head: Atraumatic Eyes: Normal Conjunctiva ENT: Normal External Ears, Nose and Mouth. Neck: Full range of motion..~ No meningismus. Resp: Clear to auscultation bilaterally Cardio: Regular rate and rhythm, no murmurs Abd: Obese abdomen, no obvious tenderness to palpation Skin: Incision is clean, dry, and intact without signs of infection Back: No midline or flank tenderness Ext: No cyanosis, or edema Neur: Awake and alert Psych: Normal Mood and Affect Procedures/MDM Patient is a 48-year-old female presents with abdominal pain after surgery. She has a seroma. There is no sign of infection at this time. The patient is afebrile in the emergency department. She had a full workup yesterday including laboratory studies and CT scan and I do not believe she needs further workup or admission to the hospital at this time. I believe outpatient management is appropriate but she will need to follow-up closely with Dr. Eugene within 24-48 hours for reevaluation. She will be given a prescription for [place] for pain as she did not receive any pain medications yesterday. Departure Diagnosis: Primary Impression: Seroma Additional Impressions: Post-op pain Abdominal pain Abdominal location: unspecified location Qualified Code: R10.9 - Abdominal pain, unspecified location Condition: Fair Patient Instructions: Seroma, Postsurgical Referrals: ROMAINE EUGENE MD Additional Instructions: Llame al doctor MILTON y leni kathy ANDRE PARA DENTRO DE 1-2 DSOUZA.Dgale a la secretaria que nosotros le instruimos hacer esta andre.Avise o llame si horton condicin se empeora antes de la andre. Regresa aqui si peor o no mejor. MEREDITH ERNST MD June 14, 2016 14:31
== END 2016-06-14 13:22 | disposition home or self-care (01) ==
LOC: E/R 12:23
DX: K91.872 Postprocedural seroma of a digestive system organ or structure following a digestive system procedure (principal); R40.2252 Coma scale, best verbal response, oriented, at arrival to emergency department; G89.18 Other acute postprocedural pain; R40.2142 Coma scale, eyes open, spontaneous, at arrival to emergency department; R40.2362 Coma scale, best motor response, obeys commands, at arrival to emergency department
CPT/HCPCS: 99283

== ENCOUNTER 2016-06-15 18:19 | Emergency (ER) | payer MEDICARE, OTHER ==
[~2016-06-15] VITALS: Ht 162.6 cm; Wt 124.5 kg
[~2016-06-15 18:19] MED LIST changes: -DOCU-144 PO; +HYDR-902 PO; -Oxycodone/Acetamin (5/325) PO; -SENN-53 PO
[2016-06-15 18:20] VITALS: Ht 162.6 cm; Wt 124.5 kg
[2016-06-15] MEDS ORDERED: ONDANSETRON (ODT) 4 MG TAB ODT STA (19:07)
[2016-06-15] MEDS ORDERED: LIDOCAINE 1%/EPI 30 ML INJ INJ STA (19:14)
[2016-06-15] MEDS ORDERED: LIDOCAINE 1% (MDV) 20 ML INJ ONE (19:27)
[2016-06-15] MEDS ORDERED: HYDROCODONE/APAP (10/325) TAB PO ONE (19:30)
[2016-06-15] MEDS ORDERED: LIDOCAINE 2%/EPI (MDV) 20ML INJ INJ ONE (19:30)
[2016-06-15 20:03] VITALS: BP 145/79; PULSE 85; RESP 17; TEMP 98.2
--- NOTE | 2016-06-15 20:13 | ERD ---
ER Documentation Chief Complaint Date/Time DATE: 06/15/16 TIME: 20:08 Chief Complaint abdominal pain - had hernia surgery 10 days ago HPI Patient is a 56-year-old female who had recent hernia surgery on June 05 who presents with abdominal pain. She has not taken pain medicines that she was prescribed but she is having pain at the surgical site. She was seen here yesterday and the day before. 2 days ago she had a CT scan which showed a large seroma. She has had no treatment yet for pain. She was supposed to follow-up Dr. Sanchez her surgeon but said that she could not get to the office. ROS All systems reviewed and are negative except as per history of present illness. Medications Home Meds Active Scripts Hydrocodone/Acetaminophen ([place] 10-325 Tablet) 1 Each Tablet, 1 TAB PO Q6H Y for PAIN, #7 TAB Prov:MEREDITH ERNST MD 06/14/16 Discontinued Scripts Sennosides* (Senna Lax*) 8.6 Mg Tablet, 1 TAB PO Q12H Y for CONSTIPATION, #40 TAB Prov:MICHELLE DE LA CRUZ 06/06/16 Docusate Sodium* (Colace*) 100 Mg Capsule, 200 MG PO BID, #60 CAP Prov:MICHELLE DE LA CRUZ 06/06/16 [Oxycodone/Acetamin (5/325)] 1 TAB TAB No Conflict Check, 2 TAB PO Q4H Y for MODERATE PAIN (4-6), #30 Prov:MICHELLE DE LA CRUZ 06/06/16 Allergies Allergies: Coded Allergies: No Known Allergy (Unverified , 06/13/16) PMhx/Soc History of Surgery: Yes (Gallbladder sx Mar 2011, Hernia sx 05/23, 05/26) Anesthesia Reaction: No Hx Neurological Disorder: No Hx Respiratory Disorders: No Hx Cardiac Disorders: No Hx Psychiatric Problems: No Hx Alcohol Use: No Hx Substance Use: No Hx Tobacco Use: No Smoking Status: Never smoker FmHx Family History: No diabetes Physical Exam Vitals Vital Signs Date Time Temp Pulse Resp B/P Pulse Ox O2 Delivery O2 Flow Rate FiO2 06/15/16 20:03 98.2 85 17 145/79 97 Room Air 06/15/16 18:20 97.4 105 19 154/94 97 Physical Exam Const: No acute distress Head: Atraumatic Eyes: Normal Conjunctiva ENT: Normal External Ears, Nose and Mouth. Neck: Full range of motion..~ No meningismus. Resp: Clear to auscultation bilaterally Cardio: Regular rate and rhythm, no murmurs Abd: Obese abdomen, no obvious signs of infection of the surgical scar Skin: Incision is clean, dry, and intact Back: No midline or flank tenderness Ext: No cyanosis, or edema Neur: Awake and alert Psych: Normal Mood and Affect Results 24 hrs Current Medications Medications (Trade) Dose Ordered Sig/Mg Route PRN Reason Start Time Stop Time Status Last Admin Dose Admin Acetaminophen/ Hydrocodone Bitart ([place] ()) 1 tab ONCE ONCE PO 06/15/16 19:30 06/15/16 19:31 DC 06/15/16 19:25 Ondansetron HCl (Zofran Odt) 4 mg ONCE STAT ODT 06/15/16 19:07 06/15/16 19:08 DC 06/15/16 19:25 Lidocaine/ Epinephrine (Xylocaine 1%/ Epi) 30 ml ONCE STAT INJ 06/15/16 19:14 06/15/16 19:30 DC Lidocaine (Xylocaine 1% (Mdv) 20 ml) 20 ml STK-MED ONCE .ROUTE 06/15/16 19:27 06/15/16 19:28 DC Lidocaine/ Epinephrine (Xylocaine 2%/ Epi (Mdv) 20 ml) 20 ml ONCE ONCE INJ 06/15/16 19:30 06/15/16 19:31 DC 06/15/16 19:31 Procedures/MDM Soft Tissue ultrasound performed by me: Indication: Abdominal pain at surgical site Location: Mid abdomen Foreign Body: none Fluid Loculation: Large fluid collection underneath the surgical site Seroma aspiration: 3 mL of lidocaine with epinephrine were used for local anesthesia at the surgical site. I then used a 16-gauge needle attached to a 30 mL syringe and was able to withdrawal 150 mL of serosanguineous fluid under ultrasound guidance. Hemostasis was achieved. The patient tolerated the entire procedure. Patient is a 56-year-old female presents with abdominal pain. She has a large seroma based on a CT scan done 2 days ago. I spoke with Dr. Sanchez who asked me to drain the seroma at the bedside. The seroma was drained without difficulty. The patient feels much better. She will be discharged and can return for any worsening. At this point I doubt infection. She has no fevers. She was given a prescription for [place] yesterday and can take this for pain control. Departure Diagnosis: Primary Impression: Abdominal pain Abdominal location: unspecified location Qualified Code: R10.9 - Abdominal pain, unspecified location Additional Impression: Seroma Condition: Fair Patient Instructions: Seroma, Postsurgical Referrals: ROMAINE SANCHEZ MD Additional Instructions: Call your primary care doctor TOMORROW for an appointment during the next 1 WEEK.Tell the secretary to board of commissioners that you were referred from this facility.See the doctor sooner or return here if your condition worsens before your appointment time. MEREDITH ERNST MD June 15, 2016 20:12
== END 2016-06-15 20:04 | disposition home or self-care (01) ==
LOC: E/R 18:19
DX: R10.9 Unspecified abdominal pain (principal); K91.872 Postprocedural seroma of a digestive system organ or structure following a digestive system procedure

== ENCOUNTER 2016-06-18 19:20 | Emergency (ER) | payer MEDICARE, OTHER ==
[~2016-06-18] VITALS: Wt 126.5 kg
[2016-06-18] MEDS ORDERED: SULF1TAB31 PO (20:12)
[2016-06-18] MEDS ORDERED: NEOM1PAC TP (20:12)
[2016-06-18] MEDS ORDERED: CEPH-443 PO (20:12)
[2016-06-18 20:33] VITALS: BP 147/80; PULSE 85; RESP 20; TEMP 97.6
--- NOTE | 2016-06-18 20:33 | ERD ---
ER Documentation Chief Complaint Date/Time DATE: 06/18/16 TIME: 20:27 Chief Complaint wound check incisional/abdominal area HPI This is a 56-year-old female presenting to the emergency department for a wound check of an incision site of an incarcerated hernia repair surgery done by Dr. Eugene on 06/06/2016, patient has been here numerous times since his surgery and was found to have a large seroma on CT. Patient was just here 2 days ago and had his seroma drained. Patient states that there is increased redness at the site, states that pain is constant since the surgery, rating it mild in severity. ROS All systems reviewed and are negative except as per history of present illness. Medications Home Meds Active Scripts Neomycin Avalos/Bacitrac Zn/Poly (Triple Antibiotic Ointment) 1 Each Oint.pack, 1 EACH TP BID for 5 Days Prov:KOTA BONILLA PA-C 06/18/16 Sulfamethoxazole/Trimethoprim* (Bactrim Ds* Tablet) 1 Each Tablet, 1 TAB PO BID , #14 TAB Prov:KOTA BONILLA PA-C 06/18/16 Cephalexin* (Keflex*) 500 Mg Capsule, 500 MG PO QID for 10 Days, CAP Prov:KOTA BONILLA PA-C 06/18/16 Hydrocodone/Acetaminophen ([place] 10-325 Tablet) 1 Each Tablet, 1 TAB PO Q6H Y for PAIN, #7 TAB Prov:MEREDITH ERNST MD 06/14/16 Discontinued Scripts Sennosides* (Senna Lax*) 8.6 Mg Tablet, 1 TAB PO Q12H Y for CONSTIPATION, #40 TAB Prov:MICHELLE DE LA CRUZ 06/06/16 Docusate Sodium* (Colace*) 100 Mg Capsule, 200 MG PO BID, #60 CAP Prov:MICHELLE DE LA CRUZ 06/06/16 [Oxycodone/Acetamin (5/325)] 1 TAB TAB No Conflict Check, 2 TAB PO Q4H Y for MODERATE PAIN (4-6), #30 Prov:MICHELLE DE LA CRUZ 06/06/16 Allergies Allergies: Coded Allergies: No Known Allergy (Unverified , 06/18/16) PMhx/Soc History of Surgery: Yes (Gallbladder sx Mar 2011, Hernia sx 05/23, 05/26) Anesthesia Reaction: No Hx Neurological Disorder: No Hx Respiratory Disorders: No Hx Cardiac Disorders: No Hx Psychiatric Problems: No Hx Alcohol Use: No Hx Substance Use: No Hx Tobacco Use: No Smoking Status: Never smoker Physical Exam Vitals Vital Signs Date Time Temp Pulse Resp B/P Pulse Ox O2 Delivery O2 Flow Rate FiO2 06/18/16 19:41 98.4 88 20 136/89 98 Physical Exam General: WD/WN, in no apparent distress, non-toxic appearing. Obese HENT: NC/AT Eyes: Conjunctiva normal Neck: Supple Pulm: Clear to auscultation, normal labored breathing; no wheezing/rales/ rhonchi heard CV: Good capillary refill GI: Non-distended, no guarding Back: No masses Ext: No clubbing, cyanosis, or edema Neuro: Moves on all fours Skin: vertical incisional abdominal site with mi intact, mild erythema at site, no purulence,induration, warmth No ulcerations or rashes noted. Psych: Normal mood Procedures/MDM This is a 56-year-old female presenting to the emergency department for a wound check of an incision site of an incarcerated hernia repair surgery done by Dr. Eugene on 06/06/2016, patient has been here numerous times since surgery and was found to have a large seroma on CT that was recently drained here 2 days [address] by . Dr. Ernst was available today and has evaluated the incision. Patient continues to have seroma that needs to be followed up by Dr. Eugene. We have given her a lengthy discussion to follow-up with Dr. Eugene tomorrow. I have provided the contact information. suggested to place patient on Keflex and Bactrim until she is able to follow-up with . Patient is hematuria stable for discharge for home, discussed return to the ER for any worsening symptoms. Patient understands and agrees with this plan. stable discharge home Departure Diagnosis: Primary Impression: Seroma Additional Impression: Encounter for wound re-check Condition: Stable Patient Instructions: Seroma, Postsurgical Referrals: ROMAINE EUGENE MD Additional Instructions: PLEASE FOLLOW-UP WITH DR.ANDREW EUGENE SOON POSSIBLE CALL HIS OFFICE TOMORROW AND MAKE AN APPOINTMENT TO SEE HIM THE SAME DAY Daniel Mcpherson MD Address: [address], [place] [address] Take all medicines as directed. Return to this facility if you are not improving as expected. KOTA BONILLA PA-C June 18, 2016 20:33
[2016-06-19] MEDS ORDERED: FAMO-18 PO (12:55)
== END 2016-06-18 20:34 | disposition home or self-care (01) ==
LOC: FTE 19:20
DX: L76.34 Postprocedural seroma of skin and subcutaneous tissue following other procedure (principal)
CPT/HCPCS: 99284

== ENCOUNTER 2016-06-19 10:39 | Emergency (ER) | payer MEDICARE, OTHER ==
[~2016-06-19] VITALS: Ht 162.6 cm; Wt 126.5 kg
[~2016-06-19 10:39] MED LIST changes: +CEPH-443 PO; +NEOM1PAC TP; +SULF1TAB31 PO
[2016-06-19 10:46] VITALS: Ht 162.6 cm; Wt 126.5 kg
[2016-06-19] MEDS ORDERED: SOD CHLORIDE 0.9% 1,000 ML IV STA (10:56)
[2016-06-19 11:34] LABS: ADD SCAN DIFF NO
[2016-06-19 11:36] LABS: BASOPHIL # 0.1 10^3/ul (0.0-0.1); BASOPHILS % 0.7 % (0.0-2.0); EOSINOPHILS # 0.3 10^3/ul (0.0-0.5); EOSINOPHILS % 3.5 % (0.0-7.0); HEMATOCRIT 38.7 % (37.0-47.0); HEMOGLOBIN 12.4 g/dl (12.0-16.0); LYMPHOCYTES # 1.7 10^3/ul (0.8-2.9); LYMPHOCYTES % 22.2 % (15.0-51.0); MEAN CORPUSCULAR HEMOGLOBIN 29.7 pg (29.0-33.0); MEAN CORPUSCULAR VOLUME 92.6 fl (82.0-101.0); MEAN PLATELET VOLUME 11.3 fl (7.4-10.4); MONOCYTE # 0.5 10^3/ul (0.3-0.9); MONOCYTES % 6.7 % (0.0-11.0); NEUTROPHILS % 66.5 % (39.0-77.0); PLATELET COUNT 304 10^3/UL (140-415); RED BLOOD COUNT 4.18 10^6/ul (4.20-5.40); RED CELL DISTRIBUTION WIDTH 12.8 % (11.5-14.5); WHITE BLOOD COUNT 7.5 10^3/ul (4.8-10.8)
[2016-06-19] MEDS ORDERED: KETOROLAC 30 MG INJ IV STA (11:44)
[2016-06-19 11:59] LABS: CHLORIDE 106 mmol/L (97-110); POTASSIUM 4.3 mmol/L (3.5-5.1); SODIUM 141 mmol/L (135-144)
[2016-06-19 12:01] LABS: CREATININE 0.85 mg/dl (0.44-1.00)
[2016-06-19 12:02] LABS: ANION GAP 17 (8-16); BLOOD UREA NITROGEN 13 mg/dl (7-20); CARBON DIOXIDE 22 mmol/L (21-31); GLUCOSE 134 mg/dl (70-220)
[2016-06-19 12:04] LABS: INR 0.98
[2016-06-19 12:09] LABS: PARTIAL THROMBOPLASTIN TIME 27.8 Sec (25.0-35.0)
[2016-06-19 12:12] LABS: TROPONIN-I < 0.012 ng/ml (0.00-0.12)
--- NOTE | 2016-06-19 12:15 | RADRPT ---
PROCEDURE: XR Chest. CLINICAL INDICATION: Chest pain. TECHNIQUE: Single frontal view of the chest was obtained COMPARISON: No. FINDINGS: The soft tissues are normal. There is a dextro scoliosis of the thoracic spine. Degenerative osteo phytes are suspected in the mid and lower thoracic spine are poorly visualized due to underpenetrati on of the radiograph. The left diaphragm is elevated. The heart, cardiomediastinal silhouette and hilar structures are normal. The pulmonary vasculature is normal. There is a left-sided aorta. The lungs are clear. The costophrenic angles are normal. IMPRESSION: 1. Elevation of the left diaphragm. 2. Dextroscoliosis of the lower thoracic spine. 3. No evidence of active cardiopulmonary disease. RPTAT:AAJJ Physician Jasper Date Time Electronically viewed and signed by Sharan Chaves Physician on 06/19/2016 12:14 KRYSTAL/
--- NOTE | 2016-06-19 12:33 | ERD ---
ER Documentation Chief Complaint Date/Time DATE: 06/19/16 TIME: 12:30 Chief Complaint chest pain x few days HPI This is a 56-year-old female who presents to the emergency room for evaluation of chest pain that she has had constantly for the past 2 weeks. This patient has been seen multiple times this week for different complaints and states that she developed chest pain but did not tell anyone her last ER visit. The patient states that it is a centralized chest pain with no radiation and is been constant for 4 days. She denies any trauma to her chest, denies any shortness of breath associated with this and came to the emergency room today for evaluation. ROS All systems reviewed and are negative except as per history of present illness. Medications Home Meds Active Scripts Neomycin Avalos/Bacitrac Zn/Poly (Triple Antibiotic Ointment) 1 Each Oint.pack, 1 EACH TP BID for 5 Days Prov:KOTA BONILLA PA-C 06/18/16 Sulfamethoxazole/Trimethoprim* (Bactrim Ds* Tablet) 1 Each Tablet, 1 TAB PO BID , #14 TAB Prov:KOTA BONILLA PA-C 06/18/16 Cephalexin* (Keflex*) 500 Mg Capsule, 500 MG PO QID for 10 Days, CAP Prov:KOTA BONILLA PA-C 06/18/16 Hydrocodone/Acetaminophen ([place] 10-325 Tablet) 1 Each Tablet, 1 TAB PO Q6H Y for PAIN, #7 TAB Prov:MEREDITH ERNST MD 06/14/16 Discontinued Scripts Sennosides* (Senna Lax*) 8.6 Mg Tablet, 1 TAB PO Q12H Y for CONSTIPATION, #40 TAB Prov:MICHELLE DE LA CRUZ 06/06/16 Docusate Sodium* (Colace*) 100 Mg Capsule, 200 MG PO BID, #60 CAP Prov:MICHELLE DE LA CRUZ 06/06/16 [Oxycodone/Acetamin (5/325)] 1 TAB TAB No Conflict Check, 2 TAB PO Q4H Y for MODERATE PAIN (4-6), #30 Prov:MICHELLE DE LA CRUZ 06/06/16 Allergies Allergies: Coded Allergies: No Known Allergy (Unverified , 06/19/16) PMhx/Soc History of Surgery: Yes (Gallbladder sx Mar 2011, Hernia sx 05/23, 05/26) Anesthesia Reaction: No Hx Neurological Disorder: No Hx Respiratory Disorders: No Hx Cardiac Disorders: No Hx Psychiatric Problems: No Hx Alcohol Use: No Hx Substance Use: No Hx Tobacco Use: No Smoking Status: Never smoker Physical Exam Vitals Vital Signs Date Time Temp Pulse Resp B/P Pulse Ox O2 Delivery O2 Flow Rate FiO2 06/19/16 10:46 98.5 105 22 151/71 97 Physical Exam INITIAL VITAL SIGNS: Reviewed by me GENERAL: The patient is well developed and appropriate for usual state of health in no apparent distress HEENT: Pupils equal, round, and reactive to light. EOMI. There is no scleral icterus. NECK: C-spine is soft and supple, there is no meningismus. There is no cervical lymphadenopathy. LUNGS: Clear to auscultation bilaterally. There are no rales, wheezes or rhonchi. HEART: Regular rate and rhythm, no murmurs, clicks, rubs or gallops. ABDOMEN: Soft, non-tender, non-distended. There are bowel sounds in all four quadrants. No rebound or guarding. EXTREMITIES: There is no peripheral cyanosis or edema. No focal swelling or erythema. NEUROLOGICAL: The patient moves all four extremities with 5/5 strength. Cranial nerves II - XII are intact. Normal gait. Alert and oriented SKIN: There is no apparent rash or petechiae. HEME/LYMPHATIC: There is no evidence of excessive bruising or lymphedema. PSYCHIATRIC: The patient does not appear anxious or depressed. Result Diagram: 06/19/16 1110 06/19/16 1110 Results 24 hrs Laboratory Tests Test 06/19/16 11:10 White Blood Count 7.510^3/ul Red Blood Count 4.1810^6/ul Hemoglobin 12.4g/dl Hematocrit 38.7% Mean Corpuscular Volume 92.6fl Mean Corpuscular Hemoglobin 29.7pg Mean Corpuscular Hemoglobin Concent 32.0g/dl Red Cell Distribution Width 12.8% Platelet Count 63441^3/UL Mean Platelet Volume 11.3fl Neutrophils % 66.5% Lymphocytes % 22.2% Monocytes % 6.7% Eosinophils % 3.5% Basophils % 0.7% Nucleated Red Blood Cells % 0.0/100WBC Neutrophils # 5.010^3/ul Lymphocytes # 1.710^3/ul Monocytes # 0.510^3/ul Eosinophils # 0.310^3/ul Basophils # 0.110^3/ul Nucleated Red Blood Cells # 0.010^3/ul Prothrombin Time 13.0Sec Prothrombin Time Ratio 1.0 INR International Normalized Ratio 0.98 Activated Partial Thromboplast Time 27.8Sec Sodium Level 141mmol/L Potassium Level 4.3mmol/L Chloride Level 106mmol/L Carbon Dioxide Level 22mmol/L Anion Gap 17 Blood Urea Nitrogen 13mg/dl Creatinine 0.85mg/dl Glucose Level 134mg/dl Calcium Level 9.0mg/dl Troponin I < 0.012ng/ml Current Medications Medications (Trade) Dose Ordered Sig/Mg Route PRN Reason Start Time Stop Time Status Last Admin Dose Admin Sodium Chloride (NS) 1,000 ml @ 1,000 mls/hr Q1H STAT IV 06/19/16 10:56 06/19/16 11:55 DC 06/19/16 11:24 Ketorolac Tromethamine (Toradol) 30 mg ONCE STAT IV 06/19/16 11:44 06/19/16 11:53 DC Procedures/MDM EKG: Rate/Rhythm: [Normal Sinus Rhythm] QRS, ST, T-waves: [No changes consistent w/ acute ischemia] Impression: [No evidence of ischemia or arrhythmia] Chest X-ray 1V Interpreted by me: Soft Tissue: No acute abnormalities Bones: No acute abnormalities Mediastinum/Cardiac Silhouette/Lungs: [No acute abnormalities] This 56-year-old female presents to the emergency room for evaluation of chest pain for the past 4 days which is been constant. When I evaluated this patient she was nontoxic-appearing, no respiratory distress, not hypoxic and not tachycardic. I did obtain a chest x-ray which was clear and shows scoliosis of the thoracic spine. Lab work was also obtained including a troponin which is negative. This patient's EKG shows a normal sinus rhythm with no signs of ischemia or ST elevation. Upon my reevaluation this patient's pulse is 84 bpm, and her oxygen is 100% on room air. She is in no acute distress and was given Toradol for her pain. She states her pain is completely resolved and she is in no acute distress at this time. I advised her that she needs to follow-up with her primary care physician to establish an outpatient stress test. The patient verbalized understanding and is okay with her plan of care at this time. Departure Diagnosis: Primary Impression: Chest pain Condition: Stable KLEVER SHARMA DO June 19, 2016 12:33
[2016-06-19] MEDS ORDERED: FAMO-18 PO (12:55)
[2016-06-19 13:04] VITALS: BP 132/68; PULSE 78; RESP 19; TEMP 98.7
== END 2016-06-19 13:06 | disposition home or self-care (01) ==
LOC: E/R 10:39
DX: R07.9 Chest pain, unspecified (principal)
CPT/HCPCS: 36415; 71010; 80048; 84484; 85025; 85610; 85730; 93005; 96374; 99285; J1885; J7030

== ENCOUNTER 2016-06-19 16:44 | Emergency (ER) | payer MEDICARE, OTHER ==
[~2016-06-19] VITALS: Ht 162.6 cm; Wt 126.5 kg
[~2016-06-19 16:44] MED LIST changes: +FAMO-18 PO
[2016-06-19 17:04] VITALS: Ht 162.6 cm; Wt 126.5 kg
[2016-06-19] MEDS ORDERED: ONDANSETRON (ODT) 4 MG TAB ODT STA (17:35)
[2016-06-19] MEDS ORDERED: HYDROCODONE/APAP (10/325) TAB PO ONE (18:00)
--- NOTE | 2016-06-19 18:39 | RADRPT ---
PROCEDURE: US DVT. CLINICAL INDICATION: Left lower extremity pain and swelling. TECHNIQUE: Multiple longitudinal and transverse images of the left lower extremity veins were obta ined with moreland scale and color Doppler imaging. 2D grayscale measurements with compression, color D oppler flow, and augmentation was performed. The calf veins were interrogated as well. COMPARISON: No prior studies are available for comparison. FINDINGS: The left common femoral, superficial femoral and popliteal veins are normally compressible throughou t. Color flow demonstrates normal filling of the vessel. Normal waveforms are visualized and there is normal response to augmentation. The calf veins are visualized and are equally unremarkable. IMPRESSION: 1. No evidence of a deep vein thrombosis involving the left lower extremity. RPTAT: HH .Ema Loving MD, MD Date Time Electronically viewed and signed by .Ema Loving MD, MD on 06/19/2016 18:38 .N/
--- NOTE | 2016-06-19 19:04 | ERD ---
ER Documentation Chief Complaint Date/Time DATE: 06/19/16 TIME: 19:04 Chief Complaint CHEST PAIN SINCE THIS MORNING HPI Patient is a 48-year-old female who presents with left leg pain and chest pain. She had recent surgery for a abdominal hernia. She was seen this morning and had a full workup for chest pain including EKG, chest x-ray, and laboratory studies which were normal and she was discharged. The patient came back because she is still having pain. She has had no treatment as of yet. I have seen her multiple times over the past few days for various complaints mostly related to her recent surgery. ROS All systems reviewed and are negative except as per history of present illness. Medications Home Meds Active Scripts Famotidine* (Pepcid*) 20 Mg Tablet, 20 MG PO BID for 10 Days, TAB Prov:KLEVER SHARMA DO 06/19/16 Neomycin Avalos/Bacitrac Zn/Poly (Triple Antibiotic Ointment) 1 Each Oint.pack, 1 EACH TP BID for 5 Days Prov:KOTA BONILLA PA-C 06/18/16 Sulfamethoxazole/Trimethoprim* (Bactrim Ds* Tablet) 1 Each Tablet, 1 TAB PO BID , #14 TAB Prov:KOTA BONILLA PA-C 06/18/16 Cephalexin* (Keflex*) 500 Mg Capsule, 500 MG PO QID for 10 Days, CAP Prov:KOTA BONILLA-C 06/18/16 Hydrocodone/Acetaminophen ([place] 10-325 Tablet) 1 Each Tablet, 1 TAB PO Q6H Y for PAIN, #7 TAB Prov:MEREDITH ERNST MD 06/14/16 Discontinued Scripts Sennosides* (Senna Lax*) 8.6 Mg Tablet, 1 TAB PO Q12H Y for CONSTIPATION, #40 TAB Prov:MICHELLE DE LA CRUZ 06/06/16 Docusate Sodium* (Colace*) 100 Mg Capsule, 200 MG PO BID, #60 CAP Prov:MICHELLE DE LA CRUZ 06/06/16 [Oxycodone/Acetamin (5/325)] 1 TAB TAB No Conflict Check, 2 TAB PO Q4H Y for MODERATE PAIN (4-6), #30 Prov:MICHELLE DE LA CRUZ 06/06/16 Allergies Allergies: Coded Allergies: No Known Allergy (Unverified , 06/19/16) PMhx/Soc History of Surgery: Yes (Gallbladder sx Mar 2011, Hernia sx 05/23, 05/26) Anesthesia Reaction: No Hx Neurological Disorder: No Hx Respiratory Disorders: No Hx Cardiac Disorders: No Hx Psychiatric Problems: No Hx Alcohol Use: No Hx Substance Use: No Hx Tobacco Use: No FmHx Family History: No diabetes Physical Exam Vitals Vital Signs Date Time Temp Pulse Resp B/P Pulse Ox O2 Delivery O2 Flow Rate FiO2 06/19/16 19:07 97.8 88 18 154/76 100 Room Air 06/19/16 17:04 98.0 105 18 165/78 98 Physical Exam Const: No acute distress Head: Atraumatic Eyes: Normal Conjunctiva ENT: Normal External Ears, Nose and Mouth. Neck: Full range of motion..~ No meningismus. Resp: Clear to auscultation bilaterally Cardio: Regular rate and rhythm, no murmurs Abd: Soft, non tender, non distended. Normal bowel sounds Skin: No petechiae or rashes Back: No midline or flank tenderness Ext: No cyanosis, or edema Neur: Awake and alert Psych: Normal Mood and Affect Results 24 hrs Current Medications Medications (Trade) Dose Ordered Sig/Mg Route PRN Reason Start Time Stop Time Status Last Admin Dose Admin Acetaminophen/ Hydrocodone Bitart ([place] (10/325)) 1 tab ONCE ONCE PO 06/19/16 18:00 06/19/16 18:01 DC 06/19/16 17:44 Ondansetron HCl (Zofran Odt) 4 mg ONCE STAT ODT 06/19/16 17:35 06/19/16 17:37 DC 06/19/16 17:42 Procedures/MDM EKG read by me: Rate/Rhythm: Regular rate and rhythm at a rate of 98 Intervals: Normal Impression: No evidence of ischemia or arrhythmia Left lower extremity ultrasound negative for DVT per radiology. Patient is a 56-year-old female presents with left leg pain and chest pain. Her ultrasound was negative for DVT. Her EKG shows no signs of ischemia. At this point I doubt acute coronary syndrome, pneumonia, pneumothorax, pulmonary embolism, or aortic dissection. The patient will be discharged home and can follow-up with a primary doctor within 24 hours for reevaluation. I did give her the list of local clinics. She also needs to follow-up with Dr. Sanchez who is a surgeon who performed her surgery. She can return sooner for any worsening symptoms. Departure Diagnosis: Primary Impression: Leg pain Laterality: left Qualified Code: M79.605 - Pain of left lower extremity Additional Impression: Chest pain Chest pain type: unspecified Qualified Code: R07.9 - Chest pain, unspecified type Condition: Fair Patient Instructions: Chest Pain, Uncertain Cause Referrals: [facility] YOU HAVE RECEIVED A MEDICAL SCREENING EXAM AND THE RESULTS INDICATE THAT YOU DO NOT HAVE A CONDITION THAT REQUIRES URGENT TREATMENT IN THE EMERGENCY DEPARTMENT. FURTHER EVALUATION AND TREATMENT OF YOUR CONDITION CAN WAIT UNTIL YOU ARE SEEN IN YOUR DOCTORS OFFICE WITHIN THE NEXT 1-2 DAYS. IT IS YOUR RESPONSIBILITY TO MAKE AN APPOINTMENT FOR FOLOW-UP CARE. IF YOU HAVE A PRIMARY DOCTOR --you should call your primary doctor and schedule an appointment IF YOU DO NOT HAVE A PRIMARY DOCTOR YOU CAN CALL OUR PHYSICIAN REFERRAL HOTLINE AT IF YOU CAN NOT AFFORD TO SEE A PHYSICIAN YOU CAN CHOSE FROM THE FOLLOWING [facility] CLIN[facility] [address] [facility] [facility] [address] [employer] [facility] [address] [facility] [facility] [address] [facility]. [facility] [address] [facility]. [facility]. [address] Additional Instructions: Call your primary care doctor TOMORROW for an appointment during the next 1-2 days.See the doctor sooner or return here if your condition worsens before your appointment time. MEREDITH ERNST MD June 19, 2016 19:04
[2016-06-19 19:07] VITALS: BP 154/76; PULSE 88; RESP 18; TEMP 97.8
== END 2016-06-19 19:07 | disposition home or self-care (01) ==
LOC: E/R 16:44
DX: M79.605 Pain in left leg (principal)
CPT/HCPCS: 93971

== ENCOUNTER 2016-06-20 16:44 | Emergency (ER) | payer MEDICARE, OTHER ==
[~2016-06-20] VITALS: Wt 123.0 kg
== END 2016-06-20 21:10 | disposition left against medical advice (07) ==
LOC: E/R 16:44
DX: Z53.21 Procedure and treatment not carried out due to patient leaving prior to being seen by health care provider (principal)

== ENCOUNTER 2016-06-21 12:54 | Emergency (ER) | payer SELFPAY ==
[~2016-06-21] VITALS: Ht 172.7 cm; Wt 125.0 kg
[2016-06-21 13:00] VITALS: Ht 172.7 cm; Wt 125.0 kg
== END 2016-06-21 15:31 | disposition left against medical advice (07) ==
LOC: E/R 12:54
DX: Z53.21 Procedure and treatment not carried out due to patient leaving prior to being seen by health care provider (principal)
CPT/HCPCS: 93005

== ENCOUNTER 2016-06-26 10:56 | Emergency (ER) | payer MEDICARE, OTHER ==
[~2016-06-26] VITALS: Ht 162.6 cm; Wt 125.0 kg
[2016-06-26 11:08] VITALS: Ht 162.6 cm; Wt 125.0 kg
--- NOTE | 2016-06-26 11:33 | ERD ---
ER Documentation Chief Complaint Date/Time DATE: 06/26/16 TIME: 11:29 Chief Complaint palpitation getting worse starting this morning HPI 56-year-old female who presents the emergency room for palpitations. The patient is a difficult historian. The patient has greater than 10 visits since May for a multitude of different complaints. The patient states that she has had palpitations that started today that are persistent, not associated with any shortness of breath, pleuritic pain, chest pain or exertional symptoms. She is feeling somewhat anxious. She denies any difficulty breathing. No fevers, no chills. The patient has had abdominal hernia surgery complicated by seroma approximately [address] Sanchez. She has not followed up with Dr. Sanchez at this point. She denies any abdominal pain or drainage. No leg swelling. The patient states that she is having difficulty following up with Dr. Sanchez and does not have a primary care physician. ROS All systems reviewed and are negative except as per history of present illness. Medications Home Meds Active Scripts Famotidine* (Pepcid*) 20 Mg Tablet, 20 MG PO BID for 10 Days, TAB Prov:KLEVER SHARMA DO 06/19/16 Neomycin Avalos/Bacitrac Zn/Poly (Triple Antibiotic Ointment) 1 Each Oint.pack, 1 EACH TP BID for 5 Days Prov:KOTA BONILLA PA-C 06/18/16 Sulfamethoxazole/Trimethoprim* (Bactrim Ds* Tablet) 1 Each Tablet, 1 TAB PO BID , #14 TAB Prov:KOTA BONILLA PA-C 06/18/16 Cephalexin* (Keflex*) 500 Mg Capsule, 500 MG PO QID for 10 Days, CAP Prov:KOTA BONILLA PA-C 06/18/16 Hydrocodone/Acetaminophen ([place] 10-325 Tablet) 1 Each Tablet, 1 TAB PO Q6H Y for PAIN, #7 TAB Prov:MEREDITH ERNST MD 06/14/16 Allergies Allergies: Coded Allergies: No Known Allergy (Unverified , 06/26/16) PMhx/Soc History of Surgery: Yes (Gallbladder sx Mar 2011, Hernia sx 05/23, 05/26) Anesthesia Reaction: No Hx Neurological Disorder: No Hx Respiratory Disorders: No Hx Cardiac Disorders: No Hx Psychiatric Problems: No Hx Alcohol Use: No Hx Substance Use: No Hx Tobacco Use: No FmHx Family History: No diabetes Physical Exam Vitals Vital Signs Date Time Temp Pulse Resp B/P Pulse Ox O2 Delivery O2 Flow Rate FiO2 06/26/16 11:08 97.7 105 20 170/76 97 Physical Exam General: Obese but talking in full sentences, no distress Head: Normocephalic, atraumatic. Eyes: Pupils equally reactive, EOM intact ENT: Moist mucous membranes Neck: Supple, no lymphadenopathy Respiratory: Lungs clear bilaterally, no distress Cardiovascular: RRR, no murmurs, rubs, or gallops Abdominal: Soft, non-tender, non-distended, no peritoneal signs, abdominal surgical wound is clean, dry, intact, no dehiscence, mi intact, no erythema warmth or tenderness : Deferred MSK: No edema, no unilateral swelling, 5/5 strength Neurologic: Alert and oriented, moving all extremities, normal speech, no focal weakness, no cerebellar signs Skin: No rash Psych: Normal mood Procedures/MDM EKG: I reviewed and interpreted a 12-lead EKG. Rhythm: Normal sinus rhythm Ectopy: None Intervals: No abnormalities, normal QRS and QTC, no Brugada ST segments: No elevations or depressions T waves: No contiguous inversions The patient has slight tachycardia. I do not believe this is consistent with pulmonary embolism. The patient did recently have surgery but recently has had thorough workup including normal EKG, negative troponin, normal duplex. The patient does not describe any shortness of breath, no pleuritic pain and has no other clinical signs or symptoms concerning for pulmonary embolism. I believe the risks of testing outweigh the benefits given risk of false positive and unnecessary CT imaging. The patient has had thorough workup over the past month including laboratory testing, CT imaging, chest x-ray, negative duplex. All of which has been unrevealing, no evidence of anemia. Repeat laboratory testing or diagnostic imaging is not indicated in this setting at this time. The patient has significant social issues which I believe are contributing to her repeat visits to the emergency room with multiple 2 complaints. She does not have a primary care physician. It appears that social work has been involved in the past. I will have my high school social studies teacher evaluate and provide the patient with primary care resources and resources to follow-up with Dr. Sanchez her surgeon. The patient does not have any signs or symptoms of acute medical pathology at this time. The patient was given reassurance. Her EKG showed no evidence of acute process and the patient can be safely discharged home. We discussed follow up with the patient's primary care doctor within 24 to 48 hours as needed. We also discussed return to the emergency room for worsening symptoms or worsening condition. Outpatient referral: Primary care, Dr. Sanchez, surgeon Departure Diagnosis: Primary Impression: Palpitations Condition: Good SHAUNA SHEA MD June 26, 2016 11:33
[2016-06-26 12:05] VITALS: BP 121/68; PULSE 77; RESP 18
== END 2016-06-26 12:50 | disposition home or self-care (01) ==
LOC: E/R 10:56
DX: R00.2 Palpitations (principal); R40.2252 Coma scale, best verbal response, oriented, at arrival to emergency department; R40.2142 Coma scale, eyes open, spontaneous, at arrival to emergency department; R40.2362 Coma scale, best motor response, obeys commands, at arrival to emergency department
CPT/HCPCS: 93005

== ENCOUNTER 2016-06-28 11:27 | Emergency (ER) | payer MEDICARE, OTHER ==
[~2016-06-28] VITALS: Ht 160 cm; Wt 90.0 kg
[2016-06-28 11:52] VITALS: Ht 160 cm; Wt 90.0 kg
--- NOTE | 2016-06-28 13:14 | ERD ---
ER Documentation Chief Complaint Date/Time DATE: 06/28/16 TIME: 13:12 Chief Complaint edgar removal HPI This is a 56-year-old female presenting to emergency department for staple removal after abdominal hernia repair. Patient had hernia repair [address] Sanchez. She has not followed up with Dr. Sanchez at this point. Patient was given prescriptions for Bactrim and Keflex 10 days ago but states she was unable to take these medications, "because where I live it is dirty." No fevers or chills. ROS All systems reviewed and are negative except as per history of present illness. Medications Home Meds Active Scripts Sulfamethoxazole/Trimethoprim* (Bactrim Ds* Tablet) 1 Each Tablet, 1 TAB PO BID , #14 TAB Prov:EMMA NELSON NP 06/28/16 Cephalexin* (Keflex*) 500 Mg Capsule, 500 MG PO QID for 5 Days, CAP Prov:EMMA NELSON NP 06/28/16 Famotidine* (Pepcid*) 20 Mg Tablet, 20 MG PO BID for 10 Days, TAB Prov:KLEVER SHARMA DO 06/19/16 Neomycin Avalos/Bacitrac Zn/Poly (Triple Antibiotic Ointment) 1 Each Oint.pack, 1 EACH TP BID for 5 Days Prov:KOTA BONILLA PA-C 06/18/16 Sulfamethoxazole/Trimethoprim* (Bactrim Ds* Tablet) 1 Each Tablet, 1 TAB PO BID , #14 TAB Prov:KOTA BONILLA-C 06/18/16 Cephalexin* (Keflex*) 500 Mg Capsule, 500 MG PO QID for 10 Days, CAP Prov:KOTA BONILLA-C 06/18/16 Hydrocodone/Acetaminophen ([place] 10-325 Tablet) 1 Each Tablet, 1 TAB PO Q6H Y for PAIN, #7 TAB Prov:MEREDITH ERNST MD 06/14/16 Allergies Allergies: Coded Allergies: No Known Allergy (Unverified , 06/26/16) PMhx/Soc History of Surgery: Yes (Gallbladder sx Mar 2011, Hernia sx 05/23, 05/26) Anesthesia Reaction: No Hx Neurological Disorder: No Hx Respiratory Disorders: No Hx Cardiac Disorders: No Hx Psychiatric Problems: No Hx Alcohol Use: No Hx Substance Use: No Hx Tobacco Use: No Physical Exam Vitals Vital Signs Date Time Temp Pulse Resp B/P Pulse Ox O2 Delivery O2 Flow Rate FiO2 06/28/16 11:52 98.2 72 18 140/72 99 Physical Exam Const: alert Head: Atraumatic Eyes: Normal Conjunctiva ENT: Normal External Ears, Nose and Mouth. Neck: Full range of motion..~ No meningismus. Resp: Clear to auscultation bilaterally Cardio: Regular rate and rhythm, no murmurs Abd: Soft, non tender, non distended. Normal bowel sounds. Skin: No petechiae or rashes. [address] to mid abdomen with linear surgical incision. surrounding erythema without warmth or drainage. There is yellow dried drainage on the edgar. edgar intact. wound appears approximated. no induration. no fluctuance. Back: No midline or flank tenderness Ext: No cyanosis, or edema Neur: Awake and alert Psych: Normal Mood and Affect Results 24 hrs Current Medications Medications (Trade) Dose Ordered Sig/Mg Route PRN Reason Start Time Stop Time Status Last Admin Dose Admin Trimethoprim/ Sulfamethoxazole (Bactrim (Ds)) 1 tab ONCE ONCE PO 06/28/16 14:30 06/28/16 14:31 DC 06/28/16 14:17 Cephalexin (Keflex) 500 mg ONCE ONCE PO 06/28/16 14:30 06/28/16 14:31 DC 06/28/16 14:16 Acetaminophen/ Hydrocodone Bitart ([place] (5/325)) 1 tab ONCE ONCE PO 06/28/16 14:30 06/28/16 14:31 DC 06/28/16 14:23 Procedures/MDM MDM: 56 year old female presents to ER for staple removal of surgical incision from previous abdominal hernia repair by Dr. Sanchez. Patient has had multiple visits to the ED with various complains. Patient has been to this ER 11 times in June. Patient was given prescription for Bactrim and Keflex but states she was unable to take these medications at home because "where I live it is dirty. " Consulted Dr. Fraire regarding this patient who also examined patient. Dr. Fraire suggested contacting Dr. Sanchez and confirming that edgar are appropriate for removal. Contacted Dr. Sanchez and he states that staple removal is appropriate. Staple Removal by me: 25 Edgar removed with staple remover without incident. Edgar are intact. Wound shows no evidence of infection, foreign body, neurologic injury, vascular injury, open joint or tendon laceration. Patient to follow up with Dr. Sanchez on 07/01/2016 at scheduled appointment. Low suspicion for any emergent or acute pathology at this time. Vital signs remained stable. Patient is afebrile. She does not have a primary care physician. It appears that social work has been involved in the past. Patient given Keflex and Bactrim while in the ED. Requesting Baker. Given [place] 5/325mg while in the ED. Patient is appropriate for outpatient management will be given prescription for Bactrim and Keflex. Instructed patient to follow-up with Dr. Sanchez at scheduled appointment in 3 days. Return to ED for any high fever, chest pain, difficulty breathing, shortness breath, wheezing, vomiting, diarrhea, abdominal pain or any new or worsening symptoms. Patient verbalizes understanding. All questions answered at discharge. Departure Diagnosis: Primary Impression: Encounter for removal of edgar Condition: Stable EMMA NELSON NP June 28, 2016 13:14
[2016-06-28] MEDS ORDERED: SULF1TAB31 PO (14:18)
[2016-06-28] MEDS ORDERED: CEPH-443 PO (14:18)
[2016-06-28] MEDS ORDERED: HYDROCODONE/APAP (5/325) TAB PO ONE (14:30)
[2016-06-28] MEDS ORDERED: CEPHALEXIN 500 MG CAP PO ONE (14:30)
[2016-06-28] MEDS ORDERED: TRIMETHOPRIM/SULFAMETHOX (DS) TAB PO ONE (14:30)
== END 2016-06-28 15:14 | disposition home or self-care (01) ==
LOC: FTE 11:27
DX: Z48.02 Encounter for removal of sutures (principal)
CPT/HCPCS: 99283

== ENCOUNTER 2016-06-29 16:33 | Emergency (ER) | payer MEDICARE, OTHER ==
[~2016-06-29] VITALS: Ht 157.5 cm; Wt 89.0 kg
[2016-06-29 16:43] VITALS: Ht 157.5 cm; Wt 89.0 kg
--- NOTE | 2016-06-29 18:28 | ERD ---
ER Documentation Chief Complaint Date/Time DATE: 06/29/16 TIME: 18:17 Chief Complaint wound check HPI 56-year-old female complaining of abdominal pain as yesterday. Patient had umbilical hernia surgery several weeks ago. She was seen here yesterday for staple removal. Patient stated that she received one [place] tablet while in the ED yesterday. The pain had returned last night. She did not fill the antibiotic prescription given to her yesterday. Stating that "I can take the medications because they stuck in my throat". Denies fever or chills. Denies wound drainage. ROS All systems reviewed and are negative except as per history of present illness. Medications Home Meds Active Scripts Sulfamethoxazole/Trimethoprim* (Bactrim Ds* Tablet) 1 Each Tablet, 1 TAB PO BID , #14 TAB Prov:EMMA NELSON NP 06/28/16 Cephalexin* (Keflex*) 500 Mg Capsule, 500 MG PO QID for 5 Days, CAP Prov:EMMA NELSON NP 06/28/16 Famotidine* (Pepcid*) 20 Mg Tablet, 20 MG PO BID for 10 Days, TAB Prov:KLEVER SHARMA DO 06/19/16 Neomycin Avalos/Bacitrac Zn/Poly (Triple Antibiotic Ointment) 1 Each Oint.pack, 1 EACH TP BID for 5 Days Prov:KOTA BONILLA PA-C 06/18/16 Sulfamethoxazole/Trimethoprim* (Bactrim Ds* Tablet) 1 Each Tablet, 1 TAB PO BID , #14 TAB Prov:KOTA BONILLA PA-C 06/18/16 Cephalexin* (Keflex*) 500 Mg Capsule, 500 MG PO QID for 10 Days, CAP Prov:KOTA BONILLA PA-C 06/18/16 Hydrocodone/Acetaminophen ([place] 10-325 Tablet) 1 Each Tablet, 1 TAB PO Q6H Y for PAIN, #7 TAB Prov:MEREDITH ERNST MD 06/14/16 Allergies Allergies: Coded Allergies: No Known Allergy (Unverified , 06/26/16) PMhx/Soc History of Surgery: Yes (Gallbladder sx Mar 2011, Hernia sx 05/23, 05/26) Anesthesia Reaction: No Hx Neurological Disorder: No Hx Respiratory Disorders: No Hx Cardiac Disorders: No Hx Psychiatric Problems: No Hx Alcohol Use: No Hx Substance Use: No Hx Tobacco Use: No Physical Exam Vitals Vital Signs Date Time Temp Pulse Resp B/P Pulse Ox O2 Delivery O2 Flow Rate FiO2 06/29/16 16:43 99.6 99 20 165/78 99 Physical Exam General: Well-developed, well-nourished, conscious and coherent, in no distress Skin: Warm and dry without rash, good texture and turgor. Vertical surgical scar noted in the abdomen, there is erythema along the surgical site with slight warmth to the touch, no periwound erythema. No wound drainage or dehiscence. Head: Normocephalic without evidence of trauma Eyes: Sclera and conjunctivae normal; pupils equal, round, and reactive to light; extraocular movements are intact Neck: Supple without meningismus or adenopathy. Carotids are equal. Trachea midline. No bruits or JVD Chest: Normal AP diameter. Good expansion without retractions. Nontender. Lungs are clear to auscultate bilaterally with good tidal volume Heart: Regular rate and rhythm. No murmur, rub, or gallops heard Abdomen: Soft and without masses, slight tenderness at surgical site without guarding or rebound. Bowel sounds are active. No hepatosplenomegaly Back: Without spinal or CVA tenderness Pelvis: Nontender to palpation and stable to compression Extremities: Full range of motion. Good strength bilaterally. No clubbing, cyanosis, or edema. Peripheral pulses are intact. Sensation intact Neuro: Alert and oriented 4, GCS 15. Cranial nerves grossly intact. Motor and sensory exams nonfocal. Moves all extremities. Speech clear. Gait normal Procedures/MDM Well-appearing 56-year-old female who is frequent visitor of the CD in the last month is complaining of surgical site pain status post abdominal hernia repair. There is erythema along the surgical site without surrounding erythema. Wound site slightly warm to touch. There is slight concern for possible postsurgical infection as patient had not been taking her antibiotics as prescribed. She was seen here yesterday for staple removal. She was given additional prescription for antibiotics. Patient stated that she has not picked up the prescription from yesterday. Patient repeatedly stating that she cannot take antibiotics at home. I educated patient the need for taking antibiotics at home as directed. I asked patient to fill her prescription from yesterday after leaving the ED today. Patient has a follow-up appointment with her surgeon in 2 days. I advised patient to follow-up as previously scheduled. Patient appears well, stable for discharge and outpatient management. Medical decision making shared with patient and family. Education provided to patient and family. Patient and family expressed understanding of the plan. Medications on discharge: None. Follow-up: Primary care provider in 2-3 days or return to ED if worse. Departure Diagnosis: Primary Impression: Post-op pain Condition: Stable Patient Instructions: Post Op Wound Check, Infection, Post Op Wound Check, Pain Referrals: [facility] YOU HAVE RECEIVED A MEDICAL SCREENING EXAM AND THE RESULTS INDICATE THAT YOU DO NOT HAVE A CONDITION THAT REQUIRES URGENT TREATMENT IN THE EMERGENCY DEPARTMENT. FURTHER EVALUATION AND TREATMENT OF YOUR CONDITION CAN WAIT UNTIL YOU ARE SEEN IN YOUR DOCTORS OFFICE WITHIN THE NEXT 1-2 DAYS. IT IS YOUR RESPONSIBILITY TO MAKE AN APPOINTMENT FOR FOLOW-UP CARE. IF YOU HAVE A PRIMARY DOCTOR --you should call your primary doctor and schedule an appointment IF YOU DO NOT HAVE A PRIMARY DOCTOR YOU CAN CALL OUR PHYSICIAN REFERRAL HOTLINE AT IF YOU CAN NOT AFFORD TO SEE A PHYSICIAN YOU CAN CHOSE FROM THE FOLLOWING [facility] [address] [facility]. [facility] [address] [facility] [facility] [address] [facility] [facility] [address] [facility]. [facility] [address] [facility]. [facility]. [address] [place] Additional Instructions: Follow up with your surgeon as scheduled. You need to take the antibiotic medications prescribed for you as directed. VERENICE SILVA NP June 29, 2016 18:28
== END 2016-06-29 22:23 | disposition home or self-care (01) ==
LOC: FTE 16:33 → E/R 22:23
DX: Z48.01 Encounter for change or removal of surgical wound dressing (principal)
CPT/HCPCS: 99281

== ENCOUNTER 2016-06-30 14:43 | Emergency (ER) | payer MEDICARE, OTHER ==
[~2016-06-30] VITALS: Wt 123.0 kg
== END 2016-06-30 19:35 | disposition left against medical advice (07) ==
LOC: E/R 14:43
DX: Z53.21 Procedure and treatment not carried out due to patient leaving prior to being seen by health care provider (principal)

== ENCOUNTER 2016-07-10 15:44 | Emergency (ER) | payer MEDICARE, OTHER ==
[~2016-07-10] VITALS: Wt 124.0 kg
[2016-07-10] MEDS ORDERED: HYDROmorphONE 1 MG/ML SYG IV STA (16:29)
[2016-07-10] MEDS ORDERED: ONDANSETRON 4 MG INJ IV STA (16:29)
[2016-07-10 16:56] LABS: ADD SCAN DIFF NO
[2016-07-10 16:58] LABS: BASOPHILS % 0.3 % (0.0-2.0); EOSINOPHILS # 0.2 10^3/ul (0.0-0.5); EOSINOPHILS % 4.3 % (0.0-7.0); HEMATOCRIT 38.2 % (37.0-47.0); HEMOGLOBIN 12.7 g/dl (12.0-16.0); LYMPHOCYTES # 1.5 10^3/ul (0.8-2.9); LYMPHOCYTES % 40.6 % (15.0-51.0); MEAN CORPUSCULAR HGB CONC 33.2 g/dl (32.0-37.0); MEAN CORPUSCULAR VOLUME 90.3 fl (82.0-101.0); MONOCYTE # 0.4 10^3/ul (0.3-0.9); MONOCYTES % 9.6 % (0.0-11.0); NEUTROPHIL # 1.7 10^3/ul (1.6-7.5); NEUTROPHILS % 44.9 % (39.0-77.0); PLATELET COUNT 223 10^3/UL (140-415); RED BLOOD COUNT 4.23 10^6/ul (4.20-5.40); RED CELL DISTRIBUTION WIDTH 12.8 % (11.5-14.5); WHITE BLOOD COUNT 3.7 10^3/ul (4.8-10.8)
[2016-07-10 17:18] LABS: CREATININE 0.9 mg/dl (0.44-1.00); POTASSIUM 4.3 mmol/L (3.5-5.1)
[2016-07-10] MEDS ORDERED: SOD CHLORIDE 0.9% 100 ML ONE (17:20)
[2016-07-10] MEDS ORDERED: IOHEXOL 300MG/ML 150 ML BTL ONE (17:20)
[2016-07-10] MEDS ORDERED: CEPH500C PO (17:44)
--- NOTE | 2016-07-10 18:29 | RADRPT ---
PROCEDURE: CT abdomen and pelvis without contrast. CLINICAL INDICATION: Lower abdominal pain status post hernia repair TECHNIQUE: CT scan of the abdomen and pelvis without contrast was performed on a multislice CT [facility] utilizing axial imaging from the lung bases through the pubis symphysis. The patient was scann ed without intravenous contrast. Sagittal and coronal reformatted images were made. The CTDIvol is 22.78 mGy and the DLP is 1296.95 mGycm. One of the following 3 dose reduction techniques were used during this CT examination: automated exp osure control; adjustment of the mA and /or kV according to patient size; or use of iterative recons truciton technique. COMPARISON: CT abdomen pelvis 06/13/2016 FINDINGS: The lung bases are clear. The heart size is normal. No pericardial or pleural effusion is present. The visualized liver again demonstrates mild hepatomegaly without evidence for focal lesions or abno rmal attenuation. The visualized spleen, pancreas, and bilateral adrenal glands are normal. The pa tient is status post cholecystectomy changes. A small hiatal hernia is present. The bilateral kidneys are remarkable for bilateral nephrolithiasis with calculi ranging in size of 3 mm in the right mid pole and 6 mm in the left mid pole. Associated left mid pole renal scarring is present. No evidence for ureterolithiasis is present. The visualized bowel is nonobstructive. No evidence for diverticulosis, diverticulitis, or appendic itis is present. The previously-described periumbilical anterior abdominal wall hernia has been rep aired. Again noted is the fluid collection previously described which measures 5.7 cm AP by 12.4 cm transverse by 15.3 cm in superior inferior dimensions. This is slightly decreased in size when com pared with prior CT. Interval removal of surgical skin mi are noted. Mild subcutaneous inflam mation is present. The visualized urinary bladder is normal. The uterus is remarkable for Nabothian cysts present whic h measures approximately 1.7 cm. No evidence for pneumoperitoneum or ascites is present. No eviden ce for pathologic lymphadenopathy is noted. Again noted are bilateral fatty inguinal hernias are no bharti without evidence for bowel herniation. The imaged soft tissues and osseous structures demonstrate degenerative changes of the bilateral sac roiliac joints and degenerative spondylosis. IMPRESSION: 1. Interval decrease in size of anterior abdominal periumbilical fluid collections status post repa ir of the ventral hernia. Current dimensions of fluid collection are 5.7 cm AP by 12.4 cm transvers e by 15.3 cm in superior inferior dimensions. 2. Mild hepatomegaly 3. Small hiatal hernia 4. Bilateral nonobstructive nephrolithiasis and left mid pole renal cortical scar 5. 1.7 cm Nabothian cyst and bilateral fatty inguinal hernias. 6. Moderate degenerative spondylosis. RPTAT: HDC .Lynn Brewster MD, MD Date Time Electronically viewed and signed by .Lynn Brewster MD, on 07/10/2016 18:29 .C/
--- NOTE | 2016-07-10 19:01 | ERD ---
ER Documentation Chief Complaint Date/Time DATE: 07/10/16 TIME: 19:01 Chief Complaint LOWER ABD PAIN, ONSET 2 DAYS, NO N/V/D HPI This is a 56-year-old female who had a hernia repair by Dr. Sanchez is seen in the ER multiple times after this for abdominal pain. The patient states she is having some pain in the left lower abdomen described as a burning sensation no nausea vomiting diarrhea. She has the pain is been there for several days. She says she is scheduled to see Dr. Sanchez in 2 weeks. No fever no dysuria no hematuria ROS All systems reviewed and are negative except as per history of present illness. Medications Home Meds Active Scripts Clotrimazole* (Clotrimazole* AF) 1% - 30 Gm Cream.gm., 1 APPLIC TOP BID for 10 Days, TUB Prov:LEE CASTILLOSTOLOS A. DO 07/10/16 Tramadol HCl (Tramadol HCl) 50 Mg Tablet, 50 MG PO Q6, #20 TAB Prov:LEE CASTILLOSTOLOS A. DO 07/10/16 Cephalexin* (Keflex*) 500 Mg Capsule, 500 MG PO QID for 7 Days, CAP Prov:YESSICAOSAPOSTOLOS A. DO 07/10/16 Sulfamethoxazole/Trimethoprim* (Bactrim Ds* Tablet) 1 Each Tablet, 1 TAB PO BID , #14 TAB Prov:EMMA NELSON NP 06/28/16 Reported Medications Cephalexin* (Cephalexin*) 500 Mg Capsule, 500 MG PO QID, #28 CAP START 07/01/16 FOR 10 DAYS 07/10/16 Discontinued Scripts Cephalexin* (Keflex*) 500 Mg Capsule, 500 MG PO QID for 5 Days, CAP Prov:EMMA NLESON NP 06/28/16 Famotidine* (Pepcid*) 20 Mg Tablet, 20 MG PO BID for 10 Days, TAB Prov:KLEVER SHARMA DO 06/19/16 Neomycin Avalos/Bacitrac Zn/Poly (Triple Antibiotic Ointment) 1 Each Oint.pack, 1 EACH TP BID for 5 Days Prov:KOTA BONILLA PA-C 06/18/16 Sulfamethoxazole/Trimethoprim* (Bactrim Ds* Tablet) 1 Each Tablet, 1 TAB PO BID , #14 TAB Prov:KOTA BONILLA PA-C 06/18/16 Cephalexin* (Keflex*) 500 Mg Capsule, 500 MG PO QID for 10 Days, CAP Prov:KOTA BONILLA PA-C 06/18/16 Hydrocodone/Acetaminophen ([place] 10-325 Tablet) 1 Each Tablet, 1 TAB PO Q6H Y for PAIN, #7 TAB Prov:MEREDITH ERNST MD 06/14/16 Allergies Allergies: Coded Allergies: No Known Allergy (Unverified , 07/10/16) PMhx/Soc History of Surgery: Yes (Gallbladder sx Mar 2011, Hernia sx 05/23, 05/26) Anesthesia Reaction: No Hx Neurological Disorder: No Hx Respiratory Disorders: No Hx Cardiac Disorders: No Hx Psychiatric Problems: No Hx Alcohol Use: No Hx Substance Use: No Hx Tobacco Use: No FmHx Family History: No coronary disease Physical Exam Vitals Vital Signs Date Time Temp Pulse Resp B/P Pulse Ox O2 Delivery O2 Flow Rate FiO2 07/10/16 20:30 99.1 92 16 118/77 99 Room Air 07/10/16 16:47 92 16 121/81 99 Room Air 07/10/16 15:48 99.1 99 18 142/64 97 Physical Exam Const: Well-developed, well-nourished Head: Atraumatic, normocephalic Eyes: Normal Conjunctiva, PERRLA, EOMI, normal sclera, no nystagmus ENT: Normal External Ears, Nose and Mouth, moist mucus membranes. Neck: Full range of motion. No meningismus, no lymphadenopathy. Resp: Clear to auscultation bilaterally, no wheezing, rhonchi, rales Cardio: Regular rate and rhythm, no murmurs, S1 S2 present Abd: Soft, non tender x 4, non distended. Normal bowel sounds, no guarding or rebound, no pulsitile abdominal masses or bruits Skin: No petechiae or rashes, no ecchymosis , no maculopapular rash, there is a yeast infection rash in the left side of the pannus fold on palpation of this area the patient says this is the area where she has pain, surgical wound in the mid abdominal umbilicus area is clean dry and intact Back: No midline or flank tenderness Ext: No cyanosis, or edema, FROM x 4, normal inspection, neurovascularly intact x 4 Neur: Awake and alert, STR 5/5 x 4, sensation intact x 4, no focal findings, cerebellum intact Psych: Normal Mood and Affect Result Diagram: 07/10/16 1650 07/10/16 1650 Results 24 hrs Laboratory Tests Test 07/10/16 16:50 White Blood Count 3.710^3/ul Red Blood Count 4.2310^6/ul Hemoglobin 12.7g/dl Hematocrit 38.2% Mean Corpuscular Volume 90.3fl Mean Corpuscular Hemoglobin 30.0pg Mean Corpuscular Hemoglobin Concent 33.2g/dl Red Cell Distribution Width 12.8% Platelet Count 89935^3/UL Mean Platelet Volume 10.0fl Neutrophils % 44.9% Lymphocytes % 40.6% Monocytes % 9.6% Eosinophils % 4.3% Basophils % 0.3% Nucleated Red Blood Cells % 0.0/100WBC Neutrophils # 1.710^3/ul Lymphocytes # 1.510^3/ul Monocytes # 0.410^3/ul Eosinophils # 0.210^3/ul Basophils # 0.010^3/ul Nucleated Red Blood Cells # 0.010^3/ul Sodium Level 140mmol/L Potassium Level 4.3mmol/L Chloride Level 115mmol/L Carbon Dioxide Level 20mmol/L Anion Gap 9 Blood Urea Nitrogen 17mg/dl Creatinine 0.90mg/dl Glucose Level 118mg/dl Calcium Level 9.0mg/dl Current Medications Medications (Trade) Dose Ordered Sig/Mg Route PRN Reason Start Time Stop Time Status Last Admin Dose Admin Hydromorphone HCl (Dilaudid) 1 mg ONCE STAT IV 07/10/16 16:29 07/10/16 16:30 DC 07/10/16 16:51 Ondansetron HCl (Zofran Inj) 4 mg ONCE STAT IV 07/10/16 16:29 07/10/16 16:30 DC 07/10/16 16:51 IV Flush 10 ml 10 ml STK-MED ONCE .ROUTE 07/10/16 17:20 07/10/16 17:21 DC 07/10/16 17:52 Sodium Chloride (NS) 100 ml @ ud STK-MED ONCE .ROUTE 07/10/16 17:20 07/10/16 17:21 DC 07/10/16 17:53 Iohexol (Omnipaque 300mg/ ml) 150 ml [employer] ONCE .ROUTE 07/10/16 17:20 07/10/16 17:21 DC 07/10/16 17:53 Procedures/MDM PROCEDURE: CT abdomen and pelvis without contrast. CLINICAL INDICATION: Lower abdominal pain status post hernia repair TECHNIQUE: CT scan of the abdomen and pelvis without contrast was performed on a multislice CT scanner utilizing axial imaging from the lung bases through the pubis symphysis. The patient was scanned without intravenous contrast. Sagittal and coronal reformatted images were made. The CTDIvol is 22.78 mGy and the DLP is 1296.95 mGycm. One of the following 3 dose reduction techniques were used during this CT examination: automated exposure control; adjustment of the mA and /or kV according to patient size; or use of iterative reconstruciton technique. COMPARISON: CT abdomen pelvis 06/13/2016 FINDINGS: The lung bases are clear. The heart size is normal. No pericardial or pleural effusion is present. The visualized liver again demonstrates mild hepatomegaly without evidence for focal lesions or abnormal attenuation. The visualized spleen, pancreas, and bilateral adrenal glands are normal. The patient is status post cholecystectomy changes. A small hiatal hernia is present. The bilateral kidneys are remarkable for bilateral nephrolithiasis with calculi ranging in size of 3 mm in the right mid pole and 6 mm in the left mid pole. Associated left mid pole renal scarring is present. No evidence for ureterolithiasis is present. The visualized bowel is nonobstructive. No evidence for diverticulosis, diverticulitis, or appendicitis is present. The previously-described periumbilical anterior abdominal wall hernia has been repaired. Again noted is the fluid collection previously described which measures 5.7 cm AP by 12.4 cm transverse by 15.3 cm in superior inferior dimensions. This is slightly decreased in size when compared with prior CT. Interval removal of surgical skin mi are noted. Mild subcutaneous inflammation is present. The visualized urinary bladder is normal. The uterus is remarkable for Nabothian cysts present which measures approximately 1.7 cm. No evidence for pneumoperitoneum or ascites is present. No evidence for pathologic lymphadenopathy is noted. Again noted are bilateral fatty inguinal hernias are noted without evidence for bowel herniation. The imaged soft tissues and osseous structures demonstrate degenerative changes of the bilateral sacroiliac joints and degenerative spondylosis. IMPRESSION: 1. Interval decrease in size of anterior abdominal periumbilical fluid collections status post repair of the ventral hernia. Current dimensions of fluid collection are 5.7 cm AP by 12.4 cm transverse by 15.3 cm in superior inferior dimensions. 2. Mild hepatomegaly 3. Small hiatal hernia 4. Bilateral nonobstructive nephrolithiasis and left mid pole renal cortical scar 5. 1.7 cm Nabothian cyst and bilateral fatty inguinal hernias. 6. Moderate degenerative spondylosis. RPTAT: HDC .Lynn Brewster MD, MD Date Time Electronically viewed and signed by .Lynn Brewster MD, MD on 07/10/2016 18: 29 .C/ CC: YAMINI CASTILLO DO Procedure by me: Abdominal seroma fluid drainage Abdominal wall was prepped with aseptic technique using Betadine. Ultrasound was used to guide and find a seroma. The skin was anesthetized with 2-1/2 cc of 1% lidocaine with epinephrine An 18-gauge spinal needle was used with ultrasound guidance and 40 cc of serous fluid was extracted. The patient tolerated the procedure well Patient has pain where the rashes at the pannus this is likely area that is causing her pain. The seroma was found incidentally and drained again. Departure Diagnosis: Primary Impression: Postoperative seroma Surgical complication system/body Area: subcutaneous tissue Procedure type: non-dermatologic Qualified Code: L76.34 - Postoperative seroma of subcutaneous tissue after non-dermatologic procedure Additional Impression: Yeast infection of the skin Condition: Stable YAMINI CASTILLO DO Jul 10, 2016 19:01
[2016-07-10 22:00] VITALS: BP 122/80; PULSE 92; RESP 16; TEMP 98.3
[2016-07-10] MEDS ORDERED: CEPH-443 PO (22:10)
[2016-07-10] MEDS ORDERED: TRAM50TA2 PO (22:10)
[2016-07-10] MEDS ORDERED: CLOT30CR24 TOP (22:12)
== END 2016-07-10 23:00 | disposition home or self-care (01) ==
LOC: E/R 15:44
DX: L76.34 Postprocedural seroma of skin and subcutaneous tissue following other procedure (principal); B37.2 Candidiasis of skin and nail
CPT/HCPCS: 74177; 80048; 85025; J1170; J2405; Q9967; 36415; 96374; 96375

== ENCOUNTER 2016-07-11 16:09 | Emergency (ER) | payer MEDICARE, OTHER ==
[~2016-07-11] VITALS: Ht 162.6 cm; Wt 122.5 kg
[~2016-07-11 16:09] MED LIST changes: +CEPH500C PO; +CLOT30CR24 TOP; -FAMO-18 PO; -HYDR-902 PO; -NEOM1PAC TP; +TRAM50TA2 PO
[2016-07-11 16:37] VITALS: Ht 162.6 cm; Wt 122.5 kg
== END 2016-07-11 19:50 | disposition left against medical advice (07) ==
LOC: FTE 16:09 → E/R 19:50
DX: Z53.21 Procedure and treatment not carried out due to patient leaving prior to being seen by health care provider (principal)

== ENCOUNTER 2016-08-09 14:50 | Observation (INO) | payer MEDICARE, OTHER ==
[~2016-08-09] VITALS: Ht 162.6 cm; Wt 130.0 kg
[2016-08-09] MEDS ORDERED: ASPIRIN 81 MG TAB PO STA (15:07)
[2016-08-09] MEDS ORDERED: NITROGLYCERIN 2% 1 GM OINT PKT TD STA (15:07)
[2016-08-09] MEDS ORDERED: SOD CHLORIDE 0.9% 1,000 ML IV STA (15:07)
[2016-08-09] MEDS: NITROGLYCERIN (SL) 0.4 MG TAB SL PRN ×2 (15:43→16:47)
[2016-08-09 15:48] LABS: BASOPHILS % 0.6 % (0.0-2.0); EOSINOPHILS # 0.1 10^3/ul (0.0-0.5); EOSINOPHILS % 1.8 % (0.0-7.0); HEMATOCRIT 39.2 % (37.0-47.0); HEMOGLOBIN 12.9 g/dl (12.0-16.0); LYMPHOCYTES % 28.8 % (15.0-51.0); MEAN CORPUSCULAR HGB CONC 32.9 g/dl (32.0-37.0); MEAN CORPUSCULAR VOLUME 91.2 fl (82.0-101.0); MEAN PLATELET VOLUME 10.1 fl (7.4-10.4); MONOCYTE # 0.6 10^3/ul (0.3-0.9); MONOCYTES % 8.8 % (0.0-11.0); NEUTROPHIL # 4.2 10^3/ul (1.6-7.5); NEUTROPHILS % 59.7 % (39.0-77.0); PLATELET COUNT 258 10^3/UL (140-415); RED CELL DISTRIBUTION WIDTH 12.9 % (11.5-14.5)
[2016-08-09 15:51] LABS: ADD SCAN DIFF NO
--- NOTE | 2016-08-09 15:56 | RADRPT ---
PROCEDURE: XR Chest. CLINICAL INDICATION: Chest pain TECHNIQUE: AP view of the chest was performed. COMPARISON: June 19, 2016 FINDINGS: The cardiomediastinal silhouette is within normal limits. The lungs are clear. No signs of pleural f luid or pneumothorax are seen. The osseous structures and soft tissues are unremarkable, except for a stable, mild scoliosis, convex to the right. IMPRESSION: No evidence for active cardiopulmonary disease. No interval change. RPTAT: QQ .Zo Dove MD, Date Time Electronically viewed and signed by .Zo Dove MD, on 08/09/2016 15:56 .F/
[2016-08-09 15:58] LABS: INR 0.91; PROTIME 12.3 Sec (12.2-14.2)
[2016-08-09 15:59] LABS: PARTIAL THROMBOPLASTIN TIME 25.8 Sec (25.0-35.0)
[2016-08-09 16:01] LABS: ANION GAP 20 (8-16); BLOOD UREA NITROGEN 15 mg/dl (7-20); CALCIUM 9.5 mg/dl (8.4-10.2); CARBON DIOXIDE 23 mmol/L (21-31); CHLORIDE 101 mmol/L (97-110); CREATININE 0.81 mg/dl (0.44-1.00); GLUCOSE 111 mg/dl (70-220); POTASSIUM 4.1 mmol/L (3.5-5.1); SODIUM 140 mmol/L (135-144)
[2016-08-09 16:14] LABS: TROPONIN-I < 0.012 ng/ml (0.00-0.12)
[2016-08-09] MEDS ORDERED: SOD CHLORIDE 0.9% 100 ML ONE (16:55)
[2016-08-09] MEDS ORDERED: IOHEXOL 100 ML ONE (16:55)
[2016-08-09] MEDS ORDERED: ACETAMINOPHEN 325 MG TAB PO PRN ×2 (17:00→19:00)
[2016-08-09] MEDS ORDERED: ONDANSETRON 4 MG INJ IV PRN (17:00)
--- NOTE | 2016-08-09 17:21 | ERA ---
ER Documentation Chief Complaint Date/Time DATE: 08/09/16 TIME: 17:18 Chief Complaint chest pain radiates to the neck started over an hour ago HPI Patient is a 56-year-old female with hypertension who presents with chest pain. The patient was sweaty in triage as well. She has left-sided chest pain which is heaviness that has been there for 1 hour and getting worse. She feels radiation down her left arm into her left neck. She has had no treatment as of yet. Upon review of old medical records the patient does have multiple visits for usually abdominal pain. She does not currently have a primary doctor. ROS All systems reviewed and are negative except as per history of present illness. Medications Home Meds Discontinued Reported Medications Cephalexin* (Cephalexin*) 500 Mg Capsule, 500 MG PO QID, #28 CAP START 07/01/16 FOR 10 DAYS 07/10/16 Discontinued Scripts Clotrimazole* (Clotrimazole* AF) 1% - 30 Gm Cream.gm., 1 APPLIC TOP BID for 10 Days, TUB Prov:LEKKOS,APOSTOLOS A. DO 07/10/16 Tramadol HCl (Tramadol HCl) 50 Mg Tablet, 50 MG PO Q6, #20 TAB Prov:LEKKOS,APOSTOLOS A. DO 07/10/16 Cephalexin* (Keflex*) 500 Mg Capsule, 500 MG PO QID for 7 Days, CAP Prov:LEKKOS,APOSTOLOS A. DO 07/10/16 Sulfamethoxazole/Trimethoprim* (Bactrim Ds* Tablet) 1 Each Tablet, 1 TAB PO BID , #14 TAB Prov:EMMA NELSON NP 06/28/16 Allergies Allergies: Coded Allergies: No Known Allergy (Unverified , 08/09/16) PMhx/Soc History of Surgery: Yes (Gallbladder sx Mar 2011, Hernia sx 05/23, 05/26) Anesthesia Reaction: No Hx Neurological Disorder: No Hx Respiratory Disorders: No Hx Cardiac Disorders: No Hx Psychiatric Problems: No Hx Miscellaneous Medical Probl: Yes (abdominal hernias) Hx Alcohol Use: No Hx Substance Use: No Hx Tobacco Use: No Smoking Status: Never smoker FmHx Family History: coronary disease Physical Exam Vitals Vital Signs Date Time Temp Pulse Resp B/P Pulse Ox O2 Delivery O2 Flow Rate FiO2 08/09/16 15:52 Nasal Cannula 2 08/09/16 14:56 98.7 110 29 174/78 97 Physical Exam Const: Moderate distress Head: Atraumatic Eyes: Normal Conjunctiva ENT: Normal External Ears, Nose and Mouth. Neck: Full range of motion..~ No meningismus. Resp: Clear to auscultation bilaterally Cardio: Tachycardic rate without murmur Abd: Soft, non tender, non distended. Normal bowel sounds Skin: No petechiae or rashes Back: No midline or flank tenderness Ext: No cyanosis, or edema Neur: Awake and alert Psych: Normal Mood and Affect Result Diagram: 08/09/16 1535 08/09/16 1535 Results 24 hrs Laboratory Tests Test 08/09/16 15:35 White Blood Count 7.010^3/ul Red Blood Count 4.3010^6/ul Hemoglobin 12.9g/dl Hematocrit 39.2% Mean Corpuscular Volume 91.2fl Mean Corpuscular Hemoglobin 30.0pg Mean Corpuscular Hemoglobin Concent 32.9g/dl Red Cell Distribution Width 12.9% Platelet Count 04811^3/UL Mean Platelet Volume 10.1fl Neutrophils % 59.7% Lymphocytes % 28.8% Monocytes % 8.8% Eosinophils % 1.8% Basophils % 0.6% Nucleated Red Blood Cells % 0.0/100WBC Neutrophils # 4.210^3/ul Lymphocytes # 2.010^3/ul Monocytes # 0.610^3/ul Eosinophils # 0.110^3/ul Basophils # 0.010^3/ul Nucleated Red Blood Cells # 0.010^3/ul Prothrombin Time 12.3Sec Prothrombin Time Ratio 1.0 INR International Normalized Ratio 0.91 Activated Partial Thromboplast Time 25.8Sec Sodium Level 140mmol/L Potassium Level 4.1mmol/L Chloride Level 101mmol/L Carbon Dioxide Level 23mmol/L Anion Gap 20 Blood Urea Nitrogen 15mg/dl Creatinine 0.81mg/dl Glucose Level 111mg/dl Calcium Level 9.5mg/dl Troponin I < 0.012ng/ml Current Medications Medications (Trade) Dose Ordered Sig/Mg Route PRN Reason Start Time Stop Time Status Last Admin Dose Admin Sodium Chloride (NS) 1,000 ml @ 1,000 mls/hr Q1H STAT IV 08/09/16 15:07 08/09/16 16:06 DC 08/09/16 15:43 Aspirin (Aspirin) 162 mg ONCE STAT PO 08/09/16 15:07 08/09/16 15:08 DC 08/09/16 15:42 Nitroglycerin (Nitroglycerin 2% Oint) 1 inch ONCE STAT TD 08/09/16 15:07 08/09/16 15:08 DC 08/09/16 15:43 Nitroglycerin (Nitroglycerin (Sl Tab) 0.4 Mg) 1 tab Q5M UP TO 3 DOSES PRN SL CHEST PAIN 08/09/16 15:30 08/09/16 16:47 IV Flush 10 ml 10 ml STK-MED ONCE .ROUTE 08/09/16 16:55 08/09/16 16:56 DC Sodium Chloride 100 ml @ ud STK-MED ONCE .ROUTE 08/09/16 16:55 08/09/16 16:56 DC Iohexol (Omnipaque) 100 ml @ ud STK-MED ONCE .ROUTE 08/09/16 16:55 08/09/16 16:56 DC Ondansetron HCl (Zofran Inj) 4 mg ER BRIDGE PRN IV NAUSEA AND/OR VOMITING 08/09/16 17:00 08/10/16 16:59 Acetaminophen (Tylenol Tab) 650 mg ER BRIDGE PRN PO MILD PAIN/FEVER 08/09/16 17:00 08/10/16 16:59 Procedures/MDM Chest x-ray negative per radiology. CTA of the chest pending radiology read at this time. EKG #1 read by me: Rate/Rhythm: Sinus tachycardia rate of 106 Intervals: Normal Impression: Sinus tachycardia without ischemia EKG #2 read by me: Rate/Rhythm: Sinus tachycardia rate of 106 Intervals: Normal Impression: Sinus tachycardia without ischemia Patient is a 56-year-old female with hypertension who presents with chest pain. The patient has left-sided arm pain and radiation in the left neck. I was concerned about possible acute coronary syndrome given the symptoms. She has a family history of coronary disease and she has hypertension. She was given aspirin nitroglycerin. Initial troponin is negative. EKGs show tachycardia but no ST elevations. I want to do a CTA of the chest to rule out pulmonary embolism and aortic dissection and radiology read is pending at this time. I spoke with Dr. Bauer for admission to the telemetry floor. I doubt pneumothorax or pneumonia. Departure Diagnosis: Primary Impression: Chest pain Qualified Code: R07.9 - Chest pain, unspecified type Condition: MEREDITH Bailey MD Aug 09, 2016 17:21
--- NOTE | 2016-08-09 17:31 | RADRPT ---
PROCEDURE: CTA Chest with contrast and with 3-D reconstructions CLINICAL INDICATION: cp, r/o PE TECHNIQUE: The study was performed utilizing multidetector CT scanner. Direct spiral axial section s were obtained from the thoracic inlet to the upper abdomen with the use of intravenous contrast ma terial. Sagittal, coronal and 3-D reformations were obtained. The images were reviewed on a PACS wor kstation. DLP 691.90 mGycm CTDIvol 35.21, 19.90 mGy One or more of the following dose reduction techniques were used: - Automated exposure control. - Adjustment of the mA and/or kV according to patient size. - Use of iterative reconstruction technique. COMPARISON: No prior studies are available for comparison. FINDINGS: There are no pulmonary emboli. The lungs are clear. There is no pleural fluid. There is no pneumothorax. Heart size is within normal limits. There is no pericardial fluid. The aorta is within normal limi ts. There are no enlarged axillary or mediastinal lymph nodes. The visualized portions of the upper abdomen are unremarkable. Osseous and soft tissue structures are within normal limits. IMPRESSION: No CT evidence for pulmonary embolus. Clear lungs. RPTAT: EE Physician Rosa Date Time Electronically viewed and signed by Physician Rosa on 08/09/2016 17:30 /
[2016-08-09] MEDS ORDERED: ONDANSETRON 4 MG INJ IV STA (17:41)
[2016-08-09] MEDS ORDERED: morphine 4 MG/ML VIAL IV STA (17:41)
--- NOTE | 2016-08-09 18:34 | HP ---
Date/Time of Note Date/Time of Note DATE: 08/09/16 TIME: 18:32 Assessment/Plan VTE Prophylaxis VTE Prophylaxis Intervention: SCD's Lines/Catheters IV Catheter Type (from Nrsg): Saline Lock Assessment/Plan Assessment/Plan 56 yo F with obesity presents with chest pain, d/dx includes ACS v other PLAN forma ACS r/o with serial troponins TTE in AM consider cardiology consult for stress test Hirsutism: pt advised to obtain PCP for further testing and possible endo referral DVT prophx cardiac diet HPI/ROS Admit Date/Time Admit Date/Time Hx of Present Illness chief complaint: chest pain HPI 56 yo F with pmhx obesity, hernia repair 2 mos ago presents with several hours of chest pain. States it started earlier today. Also associated SOB. States she' s had this several times previously, evaluated at [facility], does not recall the results of the workup there. ROS 10pROS as per HPI PMH/Family/Social Past Medical History obesity, hernia repair, ?cardotid endarterectomy? Social History lives in the community with her boyfriend Smoking Status: Never smoker Exam/Review of Systems Vital Signs Vitals Vital Signs Date Time Temp Pulse Resp B/P Pulse Ox O2 Delivery O2 Flow Rate FiO2 08/09/16 15:52 Nasal Cannula 2 08/09/16 14:56 98.7 110 29 174/78 97 Exam Exam anxious, sitting up in bed hoarse voice airway patent +significant facial hair noted to chin/cheeks +soft tissue density to pt's L upper shoulder lungs clear no mrg obese, +surgical scar from hernia repair 2 mos ago, well healed no rashes labs reviewed. AG slightly elevated, trop neg x 1 EKG nl per report CTA neg for PE Labs Result Diagram: 08/09/16 1535 08/09/16 1535 JOAQUIN TRACY MD Aug 09, 2016 18:34
[2016-08-09] MEDS ORDERED: HYDROCODONE/APAP (5/325) TAB PO PRN (19:00)
[2016-08-09] MEDS ORDERED: NACL 0.9% 3 ML SYG IV SCH (19:00)
[2016-08-09] MEDS ORDERED: morphine 2 MG INJ IV PRN (19:00)
[2016-08-09 19:24] VITALS: TEMP 98.3
[2016-08-09 20:10] VITALS: BP 128/70; RESP 18
[2016-08-09 20:15] VITALS: Ht 162.6 cm; Wt 130.0 kg
[2016-08-09 20:37] VITALS: PULSE 91
[2016-08-09 22:41] LABS: CREATINE KINASE 63 IU/L (23-200)
[2016-08-09 22:54] LABS: CK-MB 0.74 ng/ml (0.0-2.4)
[2016-08-09 22:57] LABS: TROPONIN-I < 0.012 ng/ml (0.00-0.12)
[2016-08-09 23:26] VITALS: BP 126/72; RESP 18
[2016-08-10] VITALS (10 sets, daily range): BP systolic 111–136; BP diastolic 56–81; PULSE 66–91; RESP 15–19
[2016-08-10 04:23] LABS: CHOL/HDL RATIO 3.2 RATIO
[2016-08-10 04:24] LABS: CREATINE KINASE 55 IU/L (23-200)
[2016-08-10 04:27] LABS: CALCIUM 9.4 mg/dl (8.4-10.2); CREATININE 1.07 mg/dl (0.44-1.00); POTASSIUM 4.1 mmol/L (3.5-5.1)
[2016-08-10 04:36] LABS: CK-MB 0.81 ng/ml (0.0-2.4)
[2016-08-10 04:40] LABS: TROPONIN-I < 0.012 ng/ml (0.00-0.12)
[2016-08-10 04:53] LABS: THYROID STIMULATING HORMONE 3.66 MIU/L (0.465-4.680)
--- NOTE | 2016-08-10 12:54 | PN ---
Date/Time of Note Date/Time of Note DATE: 08/10/16 TIME: 12:47 Assessment/Plan VTE Prophylaxis VTE Prophylaxis Intervention: SCD's Lines/Catheters IV Catheter Type (from Nrsg): Saline Lock Assessment/Plan Assessment/Plan 56 yo F with preDM, morbid obesity admitted for chest pain, now resolved. Ruled out for ACS with serial troponins. PLAN cards eval today for stress test d/c bb per pt request daily asa discharge pending cardiology eval Subjective 24 Hr Interval Summary Free Text/Dictation No more chest pain .States she has been a little dizzy since I started her on a bb last night Exam/Review of Systems Vital Signs Vitals Vital Signs Date Time Temp Pulse Resp B/P Pulse Ox O2 Delivery O2 Flow Rate FiO2 08/10/16 12:35 98.0 75 18 135/66 98 08/09/16 19:24 Room Air 08/09/16 15:52 2 Intake and Output 08/09/16 08/09/16 08/10/16 15:00 23:00 07:00 Intake Total 500 ml Balance 500 ml Exam nad, sitting up at edge of bed no mrg lungs clear abd soft no rashes troponins neg a1c 5.7 LDL 97 Results Result Diagram: 08/09/16 1535 08/10/16 0337 Results 24 hrs Laboratory Tests Test 08/09/16 15:35 08/09/16 22:12 08/10/16 03:37 White Blood Count 7.0 # Red Blood Count 4.30 Hemoglobin 12.9 Hematocrit 39.2 Mean Corpuscular Volume 91.2 Mean Corpuscular Hemoglobin 30.0 Mean Corpuscular Hemoglobin Concent 32.9 Red Cell Distribution Width 12.9 Platelet Count 258 Mean Platelet Volume 10.1 Neutrophils % 59.7 Lymphocytes % 28.8 Monocytes % 8.8 Eosinophils % 1.8 Basophils % 0.6 Nucleated Red Blood Cells % 0.0 Neutrophils # 4.2 Lymphocytes # 2.0 Monocytes # 0.6 Eosinophils # 0.1 Basophils # 0.0 Nucleated Red Blood Cells # 0.0 Prothrombin Time 12.3 Prothrombin Time Ratio 1.0 INR International Normalized Ratio 0.91 Activated Partial Thromboplast Time 25.8 Sodium Level 140 140 Potassium Level 4.1 4.1 Chloride Level 101 105 Carbon Dioxide Level 23 26 Anion Gap 20 H 13 # Blood Urea Nitrogen 15 18 Creatinine 0.81 1.07 H Glucose Level 111 104 Calcium Level 9.5 9.4 Troponin I < 0.012 < 0.012 < 0.012 B-Type Natriuretic Peptide 52 Creatine Kinase 63 55 Creatine Kinase Index 1.2 1.5 Creatinine Kinase MB (Mass) 0.74 0.81 Hemoglobin A1c 5.7 Triglycerides Level 191 H Cholesterol Level 194 LDL Cholesterol, Calculated 97 HDL Cholesterol 59 Cholesterol/HDL Ratio 3.2 Thyroid Stimulating Hormone (TSH) 3.660 Medications Medications Current Medications Aspirin (Aspirin) 81 mg DAILY PO ; Start 08/11/16 at 09:00 Acetaminophen (Tylenol Tab) 650 mg Q6H PRN PO PAIN LEVEL 1-3 OR FEVER; Start at 19:00 Acetaminophen/ Hydrocodone Bitart ([place] (5/325)) 1 tab Q6H PRN PO PAIN LEVEL 4 -6; Start 08/09/16 at 19:00 Morphine Sulfate (morphine) 2 mg Q4H PRN IV PAIN LEVEL 7-10; Start 08/09/16 at 19:00 Carvedilol (Coreg) 3.125 mg BID PO Last administered on 08/10/16 09:44; Admin Dose 3.125 MG; Start 08/09/16 at 21:00 JOAQUIN TRACY MD Aug 10, 2016 12:53
--- NOTE | 2016-08-10 16:05 | CONS ---
Date/Time of Note Date/Time of Note DATE: 08/10/16 TIME: 15:56 Assessment/Plan Assessment/Plan Additional Assessment/Plan 1. Chest pain - 56 yo F with pmhx obesity, hernia repair 2 mos ago presents with several hours of chest pain. States it started earlier today. Also associated SOB. States she's had this several times previously, evaluated at [facility] - per self report - ? CTA - it was "abnormal" - will re-stratify with Stress test for tomorrow. NO CP now - r/o CT. 2. HTN - well controlled, con't med rx . 3. Obesity - weight loss advised. 4. h/o abn stress test ar [facility] 3-4 yeas ago - will repeat stress test now 5. Abn ECG - no CP now, will re-stratify with stress test now Consultation Date/Type/Reason Admit Date/Time Aug 09, 2016 at 16:56 Initial Consult Date 24 HR Interval Summary Free Text/Dictation Cardiology Consult: CC: Chest pain 56 yo F with pmhx obesity, hernia repair 2 mos ago presents with several hours of chest pain. States it started earlier today. Also associated SOB. States she' s had this several times previously, evaluated at [facility] - per self report - ? CTA - it was "abnormal" - will re-stratify with Stress test for tomorrow. NO CP now - r/o CT. PMH" HTN, obesity. ? h/o abn stress test ar [facility] 3-4 yeas ago All: NKDA Soc: no EtOh, no IVDU FH: HTN ROS: No fever, no chills, no nausea, no vomiting, no diarrhea/constipation No recent weight changes + chest pain (resolved now), no PND, no orthopnea No dizziness, blurred vision No thirst, no heat or cold intolerance Exam/Review of Systems Vital Signs Vitals Vital Signs Date Time Temp Pulse Resp B/P Pulse Ox O2 Delivery O2 Flow Rate FiO2 08/10/16 12:35 98.0 75 18 135/66 98 08/09/16 19:24 Room Air 08/09/16 15:52 2 Intake and Output 08/09/16 08/09/16 08/10/16 15:00 23:00 07:00 Intake Total 500 ml Balance 500 ml Exam General: WN/WD/NAD, AOx 3 HEENT: Unicetric/atraumatic/EOMI (follow commands), hirsutism NECK: JVD elevated, no thyromegaly Lymph: no lymphadenopathy HEART: regular with no S3, II/ systolic murmur at apex LUNGS: Coarse sounds ABD: soft, NT, ND, +BS - hernia : Intact Neuro: non focal SKIN: chronic changes EXT: trace edema Results Result Diagram: 08/09/16 1535 08/10/16 0337 Results 24 hrs Laboratory Tests Test 08/09/16 22:12 08/10/16 03:37 Creatine Kinase 63 55 Creatine Kinase Index 1.2 1.5 Creatinine Kinase MB (Mass) 0.74 0.81 Troponin I < 0.012 < 0.012 Sodium Level 140 Potassium Level 4.1 Chloride Level 105 Carbon Dioxide Level 26 Anion Gap 13 # Blood Urea Nitrogen 18 Creatinine 1.07 H Glucose Level 104 Hemoglobin A1c 5.7 Calcium Level 9.4 Triglycerides Level 191 H Cholesterol Level 194 LDL Cholesterol, Calculated 97 HDL Cholesterol 59 Cholesterol/HDL Ratio 3.2 Thyroid Stimulating Hormone (TSH) 3.660 Medications Medications Current Medications Aspirin (Aspirin) 81 mg DAILY PO ; Start 08/11/16 at 09:00 Acetaminophen (Tylenol Tab) 650 mg Q6H PRN PO PAIN LEVEL 1-3 OR FEVER; Start at 19:00 Acetaminophen/ Hydrocodone Bitart ([place] (5/325)) 1 tab Q6H PRN PO PAIN LEVEL 4 -6; Start 08/09/16 at 19:00 Morphine Sulfate (morphine) 2 mg Q4H PRN IV PAIN LEVEL 7-10; Start 08/09/16 at 19:00 KARINA BEVERLY MD Aug 10, 2016 16:05
--- NOTE | 2016-08-10 16:14 | RADRPT ---
Echocardiogram Report Patient Name: CARLA GONZALES Gender: Female Date: 1960 Study Date: 10-Aug-2016 Inspector Experimental Assembly: [facility] Location: 5544 Ref. Physician: JOAQUIN TRACY Quality: Technically Difficult Study Procedures: Transthoracic echocardiogram with complete 2D, M-Mode, and doppler examination. Indications: Chest Pain. 2D/M Mode Doppler Measurement Value Normal Ranges Measurement Value Normal Ranges LVIDd 2D 4.2 3.5 - 5.6 cm AV Peak Santos 1.4 m/sec LVIDs 2D 2.8 2.1 - 4.1 cm AV Peak PG 8.0 mmHg FS 2D 31.8 % LVOT Peak Santos 1.1 m/sec LVPWd 2D 1.3 0.6 - 1.1 cm LVOT Peak PG 5.0 mmHg IVSd 2D 1.3 0.6 - 1.1 cm MV E Peak Santos 1.0 m/sec IVS/LVPW 2D 1.0 MV A Peak Santos 0.6 m/sec AoR Diam 2D 3.1 2.0 - 3.7 cm MV E/A 1.6 LA/Ao 2D 1 0 - 1 MV Decel Time 225 msec EDV 2D 73.0 cm3 MV E/A 1.6 ESV 2D 23.1 cm3 TR Peak Santos 2.5 m/sec LA Dimen 2D 4.1 2.3 - 4.0 cm TR Peak PG 26.0 mmHg RVSP 29.0 mmHg Findings Left Ventricle: Normal left ventricular systolic function. Normal left ventricular cavity size. Mild concentric left ventricular hypertrophy. Ejection fraction is visually estimated at 60 %. Right Ventricle: Normal right ventricular size. Normal right ventricular systolic function. Left Atrium: The left atrium is normal in size. Right Atrium: The right atrium is normal in size. Mitral Valve: Mild mitral leaflet calcification. Mild mitral annular calcification. Trace mitral regurgitation. Aortic Valve: Normal appearance of the aortic valve. No significant aortic stenosis or insufficiency. Tricuspid Valve: Tricuspid valve not well visualized. Estimated peak PA systolic pressure 29 mmHg. There is mild tricuspid regurgitation. Pulmonic Valve: Pulmonic valve not well visualized. There is trace pulmonic regurgitation. Pericardium: Trivial pericardial effusion. Aorta: Normal aortic root. IVC: Normal size and normal respiratory collapse consistent with normal right atrial pressure. Conclusions 1.Normal left ventricular systolic function. Normal left ventricular cavity size. Mild concentric left ventricular hypertrophy. Ejection fraction is visually estimated at 60 %. 2.Mild mitral leaflet calcification. Mild mitral annular calcification. Trace mitral regurgitation. 3.Normal appearance of the aortic valve. No significant aortic stenosis or insufficiency. 4.Tricuspid valve not well visualized. Estimated peak PA systolic pressure 29 mmHg. There is mild tricuspid regurgitation. Electronically Signed By: Chino Case 10-Aug-2016 16:13:16 -0700 Patient Name: CARLA GONZALES Study Date: 10-Aug-2016 [id number]
[2016-08-10] MEDS ORDERED: PANTOPRAZOLE (EC) 40 MG TAB PO ONE (21:30)
[2016-08-10] MEDS: ONDANSETRON 4 MG INJ IV PRN (21:43)
[2016-08-11] VITALS (11 sets, daily range): BP systolic 124–148; BP diastolic 65–72; PULSE 64–81; RESP 15–20
[2016-08-11] MEDS ORDERED: ASPIRIN 81 MG TAB PO SCH (09:00)
[2016-08-11] MEDS ORDERED: REGADENOSON 0.4 MG/5 ML SYG ONE (10:53)
--- NOTE | 2016-08-11 11:23 | CONS ---
Date/Time of Note Date/Time of Note DATE: 08/11/16 TIME: 11:21 Assessment/Plan Assessment/Plan Additional Assessment/Plan 1. Chest pain - 56 yo F with pmhx obesity, hernia repair 2 mos ago presents with several hours of chest pain. States it started earlier today. Also associated SOB. States she's had this several times previously, evaluated at [facility] - per self report - ? CTA - it was "abnormal" - s/p SPECT TODAY - results pending. 2. HTN - well controlled, con't med rx . WELL RX NBOW - BB added. 3. Obesity - weight loss advised. 4. h/o abn stress test ar [facility] 3-4 yeas ago - will repeat stress test now - DONE. 5. Abn ECG - no CP now, will re-stratify with stress test now Consultation Date/Type/Reason Admit Date/Time Aug 09, 2016 at 16:56 24 HR Interval Summary Free Text/Dictation SPECT Cardiac done - awaiting results. ROS: No fever, no chills, no nausea, no vomiting, no diarrhea/constipation No recent weight changes No chest pain, no PND, no orthopnea No dizziness, blurred vision No thirst, no heat or cold intolerance Exam/Review of Systems Vital Signs Vitals Vital Signs Date Time Temp Pulse Resp B/P Pulse Ox O2 Delivery O2 Flow Rate FiO2 08/11/16 08:00 64 08/11/16 07:29 98.0 20 139/67 98 08/09/16 19:24 Room Air 08/09/16 15:52 2 Intake and Output 08/10/16 08/10/16 08/11/16 15:00 23:00 07:00 Intake Total 500 ml 500 ml Balance 500 ml 500 ml Exam General: WN/WD/NAD, AOx 3 HEENT: Unicetric/atraumatic/EOMI (follow commands) NECK: JVD elevated, no thyromegaly Lymph: no lymphadenopathy HEART: regular with no S3, II/ systolic murmur at apex LUNGS: Coarse sounds ABD: soft, NT, ND, +BS : Intact Neuro: non focal SKIN: chronic changes EXT: trace edema Results Result Diagram: 08/09/16 1535 08/10/16 9625 Medications Medications Current Medications Aspirin (Aspirin) 81 mg DAILY PO Last administered on 08/11/16t 09:20; Admin Dose 81 MG; Start 08/11/16 at 09:00 Acetaminophen (Tylenol Tab) 650 mg Q6H PRN PO PAIN LEVEL 1-3 OR FEVER; Start at 19:00 Acetaminophen/ Hydrocodone Bitart ([place] (5/325)) 1 tab Q6H PRN PO PAIN LEVEL 4 -6; Start 08/09/16 at 19:00 Morphine Sulfate (morphine) 2 mg Q4H PRN IV PAIN LEVEL 7-10; Start 08/09/16 at 19:00 Carvedilol (Coreg) 6.25 mg BID GTB Last administered on 08/11/16 09:20; Admin Dose 6.25 MG; Start 08/10/16 at 21:00 Ondansetron HCl (Zofran Inj) 4 mg Q6H PRN IV NAUSEA AND/OR VOMITING Last administered on 08/10/16 21:43; Admin Dose 4 MG; Start 08/10/16 at 21:30 KARINA BEVERLY MD Aug 11, 2016 11:23
[2016-08-11] MEDS ORDERED: ASPI81TA3 PO (12:14)
--- NOTE | 2016-08-11 12:14 | PDOCDIS ---
Discharge Instructions CONDITION Patient Condition: Fair HOME CARE INSTRUCTIONS: Diet Instructions: Reduced Calorie FOLLOW UP/APPOINTMENTS Follow-up Plan Consider speaking to your regular doctor about your persistent facial hair JOAQUIN TRACY MD Aug 11, 2016 12:14
--- NOTE | 2016-08-11 12:17 | DS ---
Date/Time of Note Date/Time of Note DATE: 08/11/16 TIME: 12:17 Discharge Summary Admission/Discharge Info Admit Date/Time Aug 09, 2016 at 16:56 Discharge Date/Time Patient Condition: Good Consults cardiology Procedures labs troponins neg x 3, a1c 5.7, LDL 97, TSH wnl 7.2 TTE Conclusions 1. Normal left ventricular systolic function. Normal left ventricular cavity size. Mild concentric left ventricular hypertrophy. Ejection fraction is visually estimated at 60 %. 2. Mild mitral leaflet calcification. Mild mitral annular calcification. Trace mitral regurgitation. 3. Normal appearance of the aortic valve. No significant aortic stenosis or insufficiency. 4. Tricuspid valve not well visualized. Estimated peak PA systolic pressure 29 mmHg. There is mild tricuspid regurgitation. 7.3 SPECT/nm stress test : negative Hx of Present Illness chief complaint: chest pain HPI 56 yo F with pmhx obesity, hernia repair 2 mos ago presents with several hours of chest pain. States it started earlier today. Also associated SOB. States she' s had this several times previously, evaluated at [facility], does not recall the results of the workup there. Hospital Course Pt ruled out for ACS with serial troponins. TTE largely unremarkable as above. Cardiology consulted to aid in obtaining stress test. Results neg as above. Pt's BP slightly elevated, trial of bb however pt unable to tolerate 2/2 dizziness. Pt started on asa for primary prevention. For hirsutism, pt advised to f/u with PCP. Home Meds Active Scripts Aspirin (Aspirin) 81 Mg Chew, 81 MG PO DAILY for 30 Days, #30 TAB Prov:JOAQUIN TRACY MD 08/11/16 Discontinued Reported Medications Cephalexin* (Cephalexin*) 500 Mg Capsule, 500 MG PO QID, #28 CAP START 07/01/16 FOR 10 DAYS 07/10/16 Discontinued Scripts Clotrimazole* (Clotrimazole* AF) 1% - 30 Gm Cream.gm., 1 APPLIC TOP BID for 10 Days, TUB Prov:YAMINI CASTILLO A. DO 07/10/16 Tramadol HCl (Tramadol HCl) 50 Mg Tablet, 50 MG PO Q6, #20 TAB Prov:LUKE CASTILLOS A. DO 07/10/16 Cephalexin* (Keflex*) 500 Mg Capsule, 500 MG PO QID for 7 Days, CAP Prov:YAMINI CASTILLO DO 07/10/16 Sulfamethoxazole/Trimethoprim* (Bactrim Ds* Tablet) 1 Each Tablet, 1 TAB PO BID , #14 TAB Prov:EMMA NELSON NP 06/28/16 Primary Care Provider Care Physician No Primary Time spent on discharge: > 30 minutes JOAQUIN TRACY MD Aug 11, 2016 12:17
[2016-08-11] MEDS: ONDANSETRON 4 MG INJ IV PRN (14:37)
--- NOTE | 2016-08-11 15:48 | RADRPT ---
PROCEDURE: Nuclear medicine myocardial stress and rest scan. CLINICAL INDICATION: Chest pain. TECHNIQUE: The patient was stressed with 0.4 mg IV Lexiscan. 10.9 mCi technetium 99m Tetrofosmin (Myoview) was administered rest. 31.2 mCi technetium 99m Tetrofosmin (Myoview) was administered du ring stress. Images were obtained and reconstructed in the short axis, horizontal long axis, and ve rtical long axis. Gated images were obtained and ejection fraction was calculated. COMPARISON: No prior study is available for comparison. FINDINGS: The stress and rest images demonstrate normal uptake throughout. There is no fixed abnormality or r eversible abnormality. There is no evidence of transient ischemic dilatation. Wall motion is normal. There is normal wall thickening during systole. Ejection fraction at stress is 62%. IMPRESSION: 1. No evidence of stress induced myocardial ischemia. 2. Ejection fraction at stress is 62%. RPTAT: QQ .Tj Mcwilliams MD, MD Date Time Electronically viewed and signed by .Tj Mcwilliams MD, on 08/11/2016 15:48 .R/
== END 2016-08-11 17:30 | disposition home or self-care (01) ==
LOC: E/R 14:50 → MS4 16:56
PROVIDERS: ADMIT Internal Medicine; ATTEND Internal Medicine
DX: R07.9 Chest pain, unspecified (principal); R94.31 Abnormal electrocardiogram [ECG] [EKG]
CPT/HCPCS: 36415; 71010; 71275; 78452; 80048; 80061; 82550; 82553; 83036; 83880; 84443; 84484; 85025; 85610; 85730; 93005; 93017; 93306; 96374; 96375; 96376; 99285; A9500; A9505; G0378; J2270; J2405; J2785; J7030; Q9967

== ENCOUNTER 2016-08-16 17:21 | Emergency (ER) | payer MEDICARE, OTHER ==
[~2016-08-16] VITALS: Ht 162.6 cm; Wt 130.0 kg
[~2016-08-16 17:21] MED LIST changes: +ASPI81TA3 PO; -CEPH-443 PO; -CEPH500C PO; -CLOT30CR24 TOP; -SULF1TAB31 PO; -TRAM50TA2 PO
[2016-08-16 17:23] VITALS: Ht 162.6 cm; Wt 130.0 kg
== END 2016-08-16 19:45 | disposition left against medical advice (07) ==
LOC: E/R 17:21
DX: Z53.21 Procedure and treatment not carried out due to patient leaving prior to being seen by health care provider (principal)
CPT/HCPCS: 93005

== ENCOUNTER 2016-08-29 15:57 | Emergency (ER) | payer SELFPAY ==
[~2016-08-29] VITALS: Ht 165.1 cm; Wt 128.5 kg
[2016-08-29 16:00] VITALS: Ht 165.1 cm; Wt 128.5 kg
== END 2016-08-29 20:52 | disposition left against medical advice (07) ==
LOC: E/R 15:57
DX: Z53.21 Procedure and treatment not carried out due to patient leaving prior to being seen by health care provider (principal)

== ENCOUNTER 2016-08-30 16:45 | Emergency (ER) | payer SELFPAY ==
[~2016-08-30] VITALS: Ht 162.6 cm; Wt 128.0 kg
[2016-08-30 16:48] VITALS: Ht 162.6 cm; Wt 128.0 kg
== END 2016-08-30 19:15 | disposition left against medical advice (07) ==
LOC: E/R 16:45
DX: Z53.21 Procedure and treatment not carried out due to patient leaving prior to being seen by health care provider (principal)

== ENCOUNTER 2016-09-01 17:09 | Emergency (ER) | payer SELFPAY ==
[~2016-09-01] VITALS: Ht 162.6 cm; Wt 128.0 kg
[2016-09-01 17:14] VITALS: Ht 162.6 cm; Wt 128.0 kg
== END 2016-09-01 20:40 | disposition left against medical advice (07) ==
LOC: E/R 17:09
DX: Z53.21 Procedure and treatment not carried out due to patient leaving prior to being seen by health care provider (principal)

== ENCOUNTER 2016-09-29 18:56 | Emergency (ER) | payer MEDICARE, OTHER ==
[~2016-09-29] VITALS: Ht 162.6 cm; Wt 128.0 kg
[~2016-09-29 18:56] MED LIST changes: +CEPH-443 PO; +CEPH500C PO; +CLOT30CR24 TOP; +DOCU-144 PO; +FAMO-96 PO; +HYDR-902 PO; +NEOM1PAC TP; +Oxycodone/Acetamin (5/325) PO; +SENN-53 PO; +SULF1TAB31 PO; +TRAM50TA2 PO
[2016-09-29 19:01] VITALS: Ht 162.6 cm; Wt 128.0 kg
[2016-09-29] MEDS ORDERED: ASPIRIN 81 MG TAB PO ONE (19:30)
[2016-09-29 19:33] LABS: BASOPHILS % 0.6 % (0.0-2.0); EOSINOPHILS # 0.1 10^3/ul (0.0-0.5); EOSINOPHILS % 1.4 % (0.0-7.0); HEMATOCRIT 39.4 % (37.0-47.0); HEMOGLOBIN 13.1 g/dl (12.0-16.0); LYMPHOCYTES # 2.1 10^3/ul (0.8-2.9); LYMPHOCYTES % 33.6 % (15.0-51.0); MEAN CORPUSCULAR HEMOGLOBIN 29.7 pg (29.0-33.0); MEAN CORPUSCULAR HGB CONC 33.2 g/dl (32.0-37.0); MEAN CORPUSCULAR VOLUME 89.3 fl (82.0-101.0); MEAN PLATELET VOLUME 10.2 fl (7.4-10.4); MONOCYTE # 0.4 10^3/ul (0.3-0.9); MONOCYTES % 5.8 % (0.0-11.0); NEUTROPHILS % 58.4 % (39.0-77.0); PLATELET COUNT 303 10^3/UL (140-415); RED BLOOD COUNT 4.41 10^6/ul (4.20-5.40); RED CELL DISTRIBUTION WIDTH 12.7 % (11.5-14.5); WHITE BLOOD COUNT 6.3 10^3/ul (4.8-10.8)
[2016-09-29 19:54] LABS: ANION GAP 21 (8-16); BLOOD UREA NITROGEN 12 mg/dl (7-20); CALCIUM 9.2 mg/dl (8.4-10.2); CARBON DIOXIDE 22 mmol/L (21-31); CHLORIDE 105 mmol/L (97-110); CREATININE 0.78 mg/dl (0.44-1.00); GLUCOSE 143 mg/dl (70-220); POTASSIUM 3.6 mmol/L (3.5-5.1); SODIUM 144 mmol/L (135-144)
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
[2016-09-29 20:07] LABS: TROPONIN-I < 0.012 ng/ml (0.00-0.12)
[2016-09-29 21:07] VITALS: BP 141/82; PULSE 81; RESP 20; TEMP 97.8
--- NOTE | 2016-09-29 22:40 | RADRPT ---
PROCEDURE: XR Chest. CLINICAL INDICATION: Chest pain TECHNIQUE: Single AP portable chest. COMPARISON: 08/09/2016 Chest x-ray FINDINGS: The cardiomediastinal silhouette is within normal limits of size. The lungs are clear without pleur al effusion or focal consolidation. No pneumothorax. The osseous structures and soft tissues are unr emarkable. IMPRESSION: 1. No evidence for active cardiopulmonary disease. RPTAT:AAJJ Lee Rosario Physician Date Time Electronically viewed and signed by Lee Rosario Physician on 09/29/2016 22:40 NICK/
== END 2016-09-29 21:09 | disposition home or self-care (01) ==
LOC: E/R 18:56
DX: F41.9 Anxiety disorder, unspecified (principal); E66.9 Obesity, unspecified; R07.89 Other chest pain; I10 Essential (primary) hypertension; I25.10 Atherosclerotic heart disease of native coronary artery without angina pectoris; Z68.42 Body mass index [BMI] 45.0-49.9, adult
CPT/HCPCS: 71010; 80048; 84484; 85025; 93005

== ENCOUNTER 2016-09-30 16:55 | Emergency (ER) | payer MEDICARE, OTHER ==
[~2016-09-30] VITALS: Ht 157.5 cm; Wt 124.0 kg
[2016-09-30 17:03] VITALS: Ht 157.5 cm; Wt 124.0 kg
[2016-09-30] MEDS ORDERED: LORAZEPAM 1 MG TAB PO ONE (20:00)
[2016-09-30 20:55] LABS: BASOPHIL # 0.1 10^3/ul (0.0-0.1); BASOPHILS % 0.8 % (0.0-2.0); EOSINOPHILS # 0.1 10^3/ul (0.0-0.5); EOSINOPHILS % 1.8 % (0.0-7.0); HEMOGLOBIN 12.6 g/dl (12.0-16.0); LYMPHOCYTES # 2.4 10^3/ul (0.8-2.9); LYMPHOCYTES % 35.8 % (15.0-51.0); MEAN CORPUSCULAR HEMOGLOBIN 29.1 pg (29.0-33.0); MEAN CORPUSCULAR HGB CONC 32.3 g/dl (32.0-37.0); MEAN CORPUSCULAR VOLUME 90.1 fl (82.0-101.0); MEAN PLATELET VOLUME 10.3 fl (7.4-10.4); MONOCYTE # 0.5 10^3/ul (0.3-0.9); MONOCYTES % 7.2 % (0.0-11.0); NEUTROPHILS % 54.2 % (39.0-77.0); PLATELET COUNT 308 10^3/UL (140-415); RED BLOOD COUNT 4.33 10^6/ul (4.20-5.40); RED CELL DISTRIBUTION WIDTH 13.1 % (11.5-14.5); WHITE BLOOD COUNT 6.6 10^3/ul (4.8-10.8)
--- NOTE | 2016-09-30 20:58 | RADRPT ---
PROCEDURE: XR Chest. CLINICAL INDICATION: Chest pain TECHNIQUE: AP Portable chest. COMPARISON: 09/29/2016 FINDINGS: The cardiomediastinal silhouette is normal. The lungs are clear. The osseous structures are unrema rkable. IMPRESSION: No acute findings. RPTAT: HIKT .Marshal Henao MD, MD Date Time Electronically viewed and signed by .Marshal Henao MD, on 09/30/2016 20:58 .T/
[2016-09-30 21:00] VITALS: BP 135/80; PULSE 87; RESP 18; TEMP 98.7
[2016-09-30 21:23] LABS: ANION GAP 19 (8-16); BLOOD UREA NITROGEN 12 mg/dl (7-20); CALCIUM 9.1 mg/dl (8.4-10.2); CARBON DIOXIDE 22 mmol/L (21-31); CHLORIDE 109 mmol/L (97-110); CREATININE 0.81 mg/dl (0.44-1.00); GLUCOSE 99 mg/dl (70-220); POTASSIUM 3.8 mmol/L (3.5-5.1); SODIUM 146 mmol/L (135-144)
[2016-09-30 21:35] LABS: TROPONIN-I < 0.012 ng/ml (0.00-0.12)
--- NOTE | 2016-09-30 21:45 | ERD ---
ER Documentation Chief Complaint Date/Time DATE: 09/30/16 TIME: 21:43 Chief Complaint nek pain, 'HEART PAINS" HPI This is a 56-year-old female with extreme anxiety who presents with chest pain. I saw the patient yesterday for similar symptoms. She had a cardiac workup which was negative. She describes similar symptoms and continues to feel anxious. She describes the chest pain is left-sided she feels that she can touch the area and it hurts and she feels that she can pull the skin and it is better. Patient denies any pleuritic pain, no fevers chills or cough. No exertional symptoms. ROS All systems reviewed and are negative except as per history of present illness. Medications Home Meds Discontinued Scripts Aspirin (Aspirin) 81 Mg Chew, 81 MG PO DAILY for 30 Days, #30 TAB Prov:JOAQUIN TRACY MD 08/11/16 Allergies Allergies: Coded Allergies: No Known Allergy (Unverified , 09/30/16) PMhx/Soc History of Surgery: Yes (Cholecystectomy,Incarcerated Hernia Repair) Anesthesia Reaction: No Hx Neurological Disorder: No Hx Respiratory Disorders: No Hx Cardiac Disorders: Yes (HTN) Hx Psychiatric Problems: No Hx Miscellaneous Medical Probl: Yes Hx Alcohol Use: No Hx Substance Use: No Hx Tobacco Use: No Smoking Status: Unknown if ever smoked FmHx Family History: No diabetes Physical Exam Vitals Vital Signs Date Time Temp Pulse Resp B/P Pulse Ox O2 Delivery O2 Flow Rate FiO2 09/30/16 17:03 98.9 82 18 146/70 99 Physical Exam General: Well developed, well nourished, no acute distress Head: Normocephalic, atraumatic. Eyes: Pupils equally reactive, EOM intact ENT: Moist mucous membranes Neck: Supple, no lymphadenopathy Respiratory: Lungs clear bilaterally, no distress Cardiovascular: RRR, no murmurs, rubs, or gallops Abdominal: Soft, non-tender, non-distended, no peritoneal signs : Deferred MSK: No edema, no unilateral swelling, 5/5 strength Neurologic: Alert and oriented, moving all extremities, normal speech, no focal weakness, no cerebellar signs Skin: No rash Psych: Extremely anxious mood Result Diagram: 09/30/16203909/30/162039 Results 24 hrs Laboratory Tests Test 09/30/16 20:40 White Blood Count 6.610^3/ul Red Blood Count 4.3310^6/ul Hemoglobin 12.6g/dl Hematocrit 39.0% Mean Corpuscular Volume 90.1fl Mean Corpuscular Hemoglobin 29.1pg Mean Corpuscular Hemoglobin Concent 32.3g/dl Red Cell Distribution Width 13.1% Platelet Count 38052^3/UL Mean Platelet Volume 10.3fl Neutrophils % 54.2% Lymphocytes % 35.8% Monocytes % 7.2% Eosinophils % 1.8% Basophils % 0.8% Nucleated Red Blood Cells % 0.0/100WBC Neutrophils # (Manual) 410^3/ul Lymphocytes # 2.410^3/ul Monocytes # 0.510^3/ul Eosinophils # 0.110^3/ul Basophils # 0.110^3/ul Nucleated Red Blood Cells # 0.010^3/ul Sodium Level 146mmol/L Potassium Level 3.8mmol/L Chloride Level 109mmol/L Carbon Dioxide Level 22mmol/L Anion Gap 19 Blood Urea Nitrogen 12mg/dl Creatinine 0.81mg/dl Glucose Level 99mg/dl Calcium Level 9.1mg/dl Troponin I < 0.012ng/ml Current Medications Medications (Trade) Dose Ordered Sig/Mg Route PRN Reason Start Time Stop Time Status Last Admin Dose Admin Lorazepam (Ativan) 1 mg ONCE ONCE PO 09/30/16 20:00 09/30/16 20:01 DC 09/30/16 19:53 Procedures/MDM EKG, MONITORS, & DIAGNOSTIC IMAGING: EKG: I reviewed and interpreted a 12-lead EKG. Rhythm: Normal sinus rhythm Ectopy: None Intervals: No abnormalities ST segments: No elevations or depressions T waves: No contiguous inversions Chest x-ray: I reviewed and interpreted a 1 view of the chest Mediastinum: No enlargement Cardiac silhouette: No cardiomegaly Airspace: Clear lung douglas bilaterally without evidence of pneumothorax Bones: No evidence of fracture LAB INTERPRETATION: Negative troponin MEDICAL DECISION MAKING: The patient's history, physical exam and clinical presentation is very consistent with anxiety. I do not believe this is consistent with cardiac etiology. The patient has multiple visits for anxiety related issues. She has had multiple rule outs in the past. I do not believe she requires hospitalization or risk stratification. Based on the patient's clinical exam and history and risk factors, I have a much lower clinical concern for pulmonary embolism, acute aortic dissection, pneumothorax, pneumonia, cardiac tamponade HEART Score: Less than 3 MACE Rate: Less than 0.9% Shared Decision Making: We had a conversation regarding risk stratification, MACE rate, and the risks, benefits, alternatives of disposition planning options. Disposition planning: Single troponin with outpatient ER COURSE: Ativan provided. Symptoms improved. Diagnostic imaging, EKG and troponin are negative. I kept the patient and/or family informed of laboratory and diagnostic imaging results throughout the emergency room course. DISPOSITION PLAN: We discussed follow up with the patient's primary care doctor within 24 to 48 hours as needed. We also discussed return to the emergency room for worsening symptoms or worsening condition. Outpatient referral: [None required] Discharge Medications: None required Departure Diagnosis: Primary Impression: Anxiety Additional Impression: Chest pain Chest pain type: unspecified Qualified Code: R07.9 - Chest pain, unspecified type Condition: Stable Patient Instructions: Anxiety Reaction, Chest Pain, Uncertain Cause Referrals: COUNTS INCLUDE 234 BEDS AT THE [facility] YOU HAVE RECEIVED A MEDICAL SCREENING EXAM AND THE RESULTS INDICATE THAT YOU DO NOT HAVE A CONDITION THAT REQUIRES URGENT TREATMENT IN THE EMERGENCY DEPARTMENT. FURTHER EVALUATION AND TREATMENT OF YOUR CONDITION CAN WAIT UNTIL YOU ARE SEEN IN YOUR DOCTORS OFFICE WITHIN THE NEXT 1-2 DAYS. IT IS YOUR RESPONSIBILITY TO MAKE AN APPOINTMENT FOR FOLOW-UP CARE. IF YOU HAVE A PRIMARY DOCTOR --you should call your primary doctor and schedule an appointment IF YOU DO NOT HAVE A PRIMARY DOCTOR YOU CAN CALL OUR PHYSICIAN REFERRAL HOTLINE AT IF YOU CAN NOT AFFORD TO SEE A PHYSICIAN YOU CAN CHOSE FROM THE FOLLOWING [facility] [address] [facility] [address] [facility]. [facility] [address] [facility] [address] [facility] [address] [facility]. [facility]. [address] [facility] [facility] YOU HAVE RECEIVED A MEDICAL SCREENING EXAM AND THE RESULTS INDICATE THAT YOU DO NOT HAVE A CONDITION THAT REQUIRES URGENT TREATMENT IN THE EMERGENCY DEPARTMENT. FURTHER EVALUATION AND TREATMENT OF YOUR CONDITION CAN WAIT UNTIL YOU ARE SEEN IN YOUR DOCTORS OFFICE WITHIN THE NEXT 1-2 DAYS. IT IS YOUR RESPONSIBILITY TO MAKE AN APPOINTMENT FOR FOLOW-UP CARE. IF YOU HAVE A PRIMARY DOCTOR --you should call your primary doctor and schedule and appointment IF YOU DO NOT HAVE A PRIMARY DOCTOR YOU CAN CALL OUR PHYSICIAN REFERRAL HOTLINE AT . IF YOU CAN NOT AFFORD TO SEE A PHYSICIAN YOU CAN CHOSE FROM THE FOLLOWING [facility] INSTITUTIONS: [facility] [address] [place] [address] [facility] [address] [place] [address] [facility] [address] [place] [address] Additional Instructions: Call your primary care doctor TOMORROW for an appointment during the next 1 WEEK.Tell the unit secretary that you were referred from this facility.See the doctor sooner or return here if your condition worsens before your appointment time. SHAUNA SHEA MD Sep 30, 2016 21:45
== END 2016-09-30 21:55 | disposition home or self-care (01) ==
LOC: FTE 16:55 → E/R 21:55
DX: F41.9 Anxiety disorder, unspecified (principal); I10 Essential (primary) hypertension; R07.9 Chest pain, unspecified; R40.2142 Coma scale, eyes open, spontaneous, at arrival to emergency department; R40.2252 Coma scale, best verbal response, oriented, at arrival to emergency department; R40.2362 Coma scale, best motor response, obeys commands, at arrival to emergency department; Z79.82 Long term (current) use of aspirin
CPT/HCPCS: 36415; 71010; 80048; 84484; 85025; 93005

== ENCOUNTER 2016-12-20 15:46 | Emergency (ER) | payer MEDICARE, OTHER ==
[~2016-12-20] VITALS: Ht 167.6 cm; Wt 124.6 kg
[2016-12-20 15:53] VITALS: Ht 167.6 cm; Wt 124.6 kg
[2016-12-20] MEDS ORDERED: SOD CHLORIDE 0.9% 1,000 ML IV STA (16:04)
[2016-12-20] MEDS ORDERED: LORAZEPAM 2 MG INJ IV ONE (16:30)
[2016-12-20 16:58] LABS: BASOPHILS % 0.7 % (0.0-2.0); EOSINOPHILS # 0.1 10^3/ul (0.0-0.5); EOSINOPHILS % 1.7 % (0.0-7.0); HEMATOCRIT 39.9 % (37.0-47.0); HEMOGLOBIN 13.1 g/dl (12.0-16.0); LYMPHOCYTES % 32.9 % (15.0-51.0); MEAN CORPUSCULAR HEMOGLOBIN 29.7 pg (29.0-33.0); MEAN CORPUSCULAR HGB CONC 32.8 g/dl (32.0-37.0); MEAN CORPUSCULAR VOLUME 90.5 fl (82.0-101.0); MEAN PLATELET VOLUME 10.9 fl (7.4-10.4); MONOCYTE # 0.5 10^3/ul (0.3-0.9); MONOCYTES % 8.8 % (0.0-11.0); NEUTROPHIL # 3.4 10^3/ul (1.6-7.5); NEUTROPHILS % 55.7 % (39.0-77.0); PLATELET COUNT 238 10^3/UL (140-415); RED BLOOD COUNT 4.41 10^6/ul (4.20-5.40); RED CELL DISTRIBUTION WIDTH 12.5 % (11.5-14.5); WHITE BLOOD COUNT 6.1 10^3/ul (4.8-10.8)
--- NOTE | 2016-12-20 17:00 | ERD ---
ER Documentation Chief Complaint Chief Complaint Complains of SOB and fever HPI 56-year-old woman with a long history of severe anxiety presents with left lateral neck pain and states she feels there is "mass" she denies difficulty swallowing, no fevers or chills, no vomiting or diarrhea, no complaints of chest pain or shortness of breath. ROS All systems reviewed and are negative except as per history of present illness. Medications Home Meds No Active Prescriptions or Reported Meds Allergies Allergies: Coded Allergies: No Known Allergy (Unverified , 09/30/16) PMhx/Soc Severe anxiety, chronic chest pain History of Surgery: Yes (Cholecystectomy,Incarcerated Hernia Repair) Anesthesia Reaction: No Hx Neurological Disorder: No Hx Respiratory Disorders: No Hx Cardiac Disorders: Yes (HTN) Hx Psychiatric Problems: No Hx Miscellaneous Medical Probl: Yes Hx Alcohol Use: No Hx Substance Use: No Hx Tobacco Use: No Smoking Status: Never smoker FmHx Family History: No diabetes Physical Exam Vitals Vital Signs Date Time Temp Pulse Resp B/P Pulse Ox O2 Delivery O2 Flow Rate FiO2 12/20/16 19:15 98.7 82 18 135/65 100 Room Air 12/20/16 15:53 99.0 90 20 165/85 99 Physical Exam GENERAL: Well-developed, well-nourished, severely anxious HEENT: Moist mucous membranes, pink conjunctiva, no cervical spine tenderness or step-off deformities, no goiter, no jaundice or icterus, extraocular movements intact without pain. No submandibular induration, and no pharyngeal erythema NEURO: Alert and oriented 3, cranial nerves II through XII intact bilaterally, pupils equal round reactive to light, no focal deficits or facial asymmetry, sensation intact distally Strength 5/5 in upper and lower extremities bilaterally CARDIAC: Regular rate and rhythm, no murmurs rubs or gallops LUNGS: Clear bilaterally no wheezing crackles or stridor ABDOMEN: Soft nontender, no guarding, no rigidity, no rebound, no psoas sign no obturator sign. Normoactive bowel sounds SKIN: Warm and dry to touch, no abrasions, contusions, or hematomas, no lacerations, no ecchymosis, no target lesions, and without ulcers EXTREMITIES: No clubbing cyanosis or edema, calves are bilaterally symmetrical, no Homans sign, no popliteal cord sign. Distal pulses equal and bilateral PSYCH: Anxious Result Diagram: 12/20/16 1615 12/20/16 1615 Results 24 hrs Laboratory Tests Test 12/20/16 16:15 White Blood Count 6.110^3/ul Red Blood Count 4.4110^6/ul Hemoglobin 13.1g/dl Hematocrit 39.9% Mean Corpuscular Volume 90.5fl Mean Corpuscular Hemoglobin 29.7pg Mean Corpuscular Hemoglobin Concent 32.8g/dl Red Cell Distribution Width 12.5% Platelet Count 01650^3/UL Mean Platelet Volume 10.9fl Neutrophils % 55.7% Lymphocytes % 32.9% Monocytes % 8.8% Eosinophils % 1.7% Basophils % 0.7% Nucleated Red Blood Cells % 0.0/100WBC Neutrophils # 3.410^3/ul Lymphocytes # 2.010^3/ul Monocytes # 0.510^3/ul Eosinophils # 0.110^3/ul Basophils # 0.010^3/ul Nucleated Red Blood Cells # 0.010^3/ul Sodium Level 144mmol/L Potassium Level 3.5mmol/L Chloride Level 110mmol/L Carbon Dioxide Level 19mmol/L Anion Gap 19 Blood Urea Nitrogen 11mg/dl Creatinine 0.77mg/dl Glucose Level 127mg/dl Calcium Level 8.8mg/dl Total Bilirubin 0.1mg/dl Direct Bilirubin 0.00mg/dl Indirect Bilirubin 0.1mg/dl Aspartate Amino Transf (AST/SGOT) 15IU/L Alanine Aminotransferase (ALT/SGPT) 24IU/L Alkaline Phosphatase 88IU/L Troponin I < 0.012ng/ml Total Protein 7.6g/dl Albumin 4.2g/dl Globulin 3.40g/dl Albumin/Globulin Ratio 1.23 Lipase 50U/L Current Medications Medications (Trade) Dose Ordered Sig/Mg Route PRN Reason Start Time Stop Time Status Last Admin Dose Admin Sodium Chloride (NS) 1,000 ml @ 1,000 mls/hr Q1H STAT IV 12/20/16 16:04 12/20/16 17:03 DC 12/20/16 16:55 Lorazepam (Ativan) 0.5 mg ONCE ONCE IV 12/20/16 16:30 12/20/16 16:31 DC 12/20/16 16:56 Procedures/MDM IV line was established patient was placed on radiation monitor rhythm strip revealed a sinus rhythm at about 90 bpm with upright P and T waves. Patient was afebrile EKG performed, read by me: 98 bpm, normal sinus rhythm, normal axis, no acute ST segment changes, narrow QRS complex, with good R-wave progression in precordial leads. I administered 1 L normal saline intravenously and lorazepam 0.5 mg IV with good response. CBC and electrolytes are normal, liver function tests are normal, troponin was negative. Differential diagnoses considered, included but not limited to acute coronary syndrome, pulmonary embolism, aortic dissection, abdominal aortic aneurysm, sepsis, stroke, meningitis, encephalitis, pneumonia, appendicitis, cholecystitis , bowel obstruction, pyelonephritis, nephrolithiasis, cystitis, as well as metabolic, hematologic, and electrolyte abnormalities. As well as abscess, cellulitis, fractures, and dislocations. Patient feels much better at this time, and vital signs are normal, symptoms have improved. I did give strict instructions to return to the ED if symptoms continue or worsen, patient will otherwise follow-up with primary care physician. Patient understood instructions and agreed to plan. Disclaimer: Inadvertent spelling and grammatical errors are likely due to EHR/ dictation software use and do not reflect on the overall quality of patient care. Also, please note that the electronic time recorded on this note does not necessarily reflect the actual time of the patient encounter. Departure Diagnosis: Primary Impression: Anxiety Condition: Good Patient Instructions: Anxiety Reaction DAWNA SMITH MD Dec 20, 2016 17:00
[2016-12-20 17:20] LABS: ALANINE AMINOTRANSFERASE 24 IU/L (13-69); ALBUMIN 4.2 g/dl (3.3-4.9); ALBUMIN/GLOBULIN RATIO 1.23; ALKALINE PHOSPHATASE 88 IU/L (42-121); ANION GAP 19 (8-16); ASPARTATE AMINO TRANSFERASE 15 IU/L (15-46); BILIRUBIN,INDIRECT 0.1 mg/dl (0-1.1); BILIRUBIN,TOTAL 0.1 mg/dl (0.2-1.3); BLOOD UREA NITROGEN 11 mg/dl (7-20); CALCIUM 8.8 mg/dl (8.4-10.2); CARBON DIOXIDE 19 mmol/L (21-31); CHLORIDE 110 mmol/L (97-110); CREATININE 0.77 mg/dl (0.44-1.00); GLUCOSE 127 mg/dl (70-220); POTASSIUM 3.5 mmol/L (3.5-5.1); SODIUM 144 mmol/L (135-144); TOTAL PROTEIN 7.6 g/dl (6.1-8.1)
[2016-12-20 17:52] LABS: TROPONIN-I < 0.012 ng/ml (0.00-0.12)
[2016-12-20 19:15] VITALS: BP 135/65; PULSE 82; RESP 18; TEMP 98.7
== END 2016-12-20 19:15 | disposition home or self-care (01) ==
LOC: E/R 15:46
DX: F41.9 Anxiety disorder, unspecified (principal); I10 Essential (primary) hypertension; R40.2142 Coma scale, eyes open, spontaneous, at arrival to emergency department; R40.2252 Coma scale, best verbal response, oriented, at arrival to emergency department; R40.2362 Coma scale, best motor response, obeys commands, at arrival to emergency department
CPT/HCPCS: 36415; 80053; 83690; 84484; 85025; 93005; 96361; 96374; 99284; J2060; J7030

== ENCOUNTER 2016-12-27 13:32 | Emergency (ER) | payer MEDICARE, OTHER ==
[~2016-12-27] VITALS: Wt 126.3 kg
--- NOTE | 2016-12-27 14:02 | ERD ---
ER Documentation Chief Complaint Chief Complaint MID CHEST/NECK CHRONIC PAIN/PALPITATIONS HPI Patient is a 56-year-old female who presents saying "my heart hurts". She said that she has pain in the middle of her chest for "a long time". She describes it as having it for years. Today her heart was pounding. She has anxiety. Upon review of old medical records the patient has multiple visits to the ER since May 2016 and she is well-known to myself into our staff. She says she does not currently have a primary doctor. ROS All systems reviewed and are negative except as per history of present illness. Medications Home Meds No Active Prescriptions or Reported Meds Allergies Allergies: Coded Allergies: No Known Allergy (Unverified , 09/30/16) PMhx/Soc History of Surgery: Yes (Cholecystectomy,Incarcerated Hernia Repair) Anesthesia Reaction: No Hx Neurological Disorder: No Hx Respiratory Disorders: No Hx Cardiac Disorders: Yes (HTN) Hx Psychiatric Problems: No Hx Miscellaneous Medical Probl: Yes Hx Alcohol Use: No Hx Substance Use: No Hx Tobacco Use: No Smoking Status: Never smoker FmHx Family History: No diabetes Physical Exam Vitals Vital Signs Date Time Temp Pulse Resp B/P Pulse Ox O2 Delivery O2 Flow Rate FiO2 12/27/16 13:36 99.1 83 18 192/78 97 Physical Exam Const: Anxious Head: Atraumatic Eyes: Normal Conjunctiva ENT: Normal External Ears, Nose and Mouth. Neck: Full range of motion..~ No meningismus. Resp: Clear to auscultation bilaterally Cardio: Regular rate and rhythm, no murmurs Abd: Soft, non tender, non distended. Normal bowel sounds Skin: No petechiae or rashes Back: No midline or flank tenderness Ext: No cyanosis, or edema Neur: Awake and alert Psych: Normal Mood and Affect Procedures/MDM EKG read by me: Rate/Rhythm: Regular rate and rhythm at a normal rate Intervals: Normal Impression: No evidence of ischemia or arrhythmia Patient is a 56-year-old female who presents with chest pain. She is feeling anxious as well. I believe this is likely related to anxiety and I doubt true acute coronary syndrome, pneumonia, pneumothorax, pulmonary embolism, or aortic dissection. I believe outpatient management is appropriate. However she will need close follow-up with a primary doctor within 24-48 hours and since she does not currently have a primary doctor I will give her a list of the local clinics. Departure Diagnosis: Primary Impression: Anxiety Additional Impression: Palpitations Condition: Fair Patient Instructions: Anxiety Reaction, Palpitations Referrals: [facility] YOU HAVE RECEIVED A MEDICAL SCREENING EXAM AND THE RESULTS INDICATE THAT YOU DO NOT HAVE A CONDITION THAT REQUIRES URGENT TREATMENT IN THE EMERGENCY DEPARTMENT. FURTHER EVALUATION AND TREATMENT OF YOUR CONDITION CAN WAIT UNTIL YOU ARE SEEN IN YOUR DOCTORS OFFICE WITHIN THE NEXT 1-2 DAYS. IT IS YOUR RESPONSIBILITY TO MAKE AN APPOINTMENT FOR FOLOW-UP CARE. IF YOU HAVE A PRIMARY DOCTOR --you should call your primary doctor and schedule an appointment IF YOU DO NOT HAVE A PRIMARY DOCTOR YOU CAN CALL OUR PHYSICIAN REFERRAL HOTLINE AT IF YOU CAN NOT AFFORD TO SEE A PHYSICIAN YOU CAN CHOSE FROM THE FOLLOWING [facility] [address] [facility]. [facility] [address] [facility] [address] [facility] [address] [facility]. [facility] [address] [facility]. [facility] [address] Additional Instructions: Call your primary care doctor TOMORROW for an appointment during the next 1-2 days.See the doctor sooner or return here if your condition worsens before your appointment time. MEREDITH ERNST MD Dec 27, 2016 14:02
== END 2016-12-27 14:11 | disposition home or self-care (01) ==
LOC: E/R 13:32
DX: F41.9 Anxiety disorder, unspecified (principal); R00.2 Palpitations; I10 Essential (primary) hypertension; R40.2142 Coma scale, eyes open, spontaneous, at arrival to emergency department; R40.2252 Coma scale, best verbal response, oriented, at arrival to emergency department; R40.2362 Coma scale, best motor response, obeys commands, at arrival to emergency department
CPT/HCPCS: 93005

== ENCOUNTER 2016-12-30 14:46 | Emergency (ER) | payer MEDICARE, OTHER ==
[~2016-12-30] VITALS: Wt 126.8 kg
== END 2016-12-30 17:59 | disposition left against medical advice (07) ==
LOC: E/R 14:46
DX: Z53.21 Procedure and treatment not carried out due to patient leaving prior to being seen by health care provider (principal)

== ENCOUNTER 2017-01-02 20:12 | Emergency (ER) | payer MEDICARE, OTHER ==
[~2017-01-02] VITALS: Ht 175.3 cm; Wt 127.3 kg
[2017-01-02 20:18] VITALS: Ht 175.3 cm; Wt 127.3 kg
--- NOTE | 2017-01-02 23:41 | RADRPT ---
PROCEDURE: XR Chest. CLINICAL INDICATION: Shortness of breath TECHNIQUE: Single portable view of the chest was obtained COMPARISON: CHEST 09/30/2016 FINDINGS: The trachea is midline. The cardiac silhouette and pulmonary vascularity are within normal limits. T he lungs are clear. The costophrenic angles are sharp. IMPRESSION: 1. No evidence of acute cardiopulmonary disease. RPTAT: AAPP Physician Diana Date Time Electronically viewed and signed by Clara Louis Physician on 01/02/2017 23:41 JL/
--- NOTE | 2017-01-02 23:55 | ERD ---
ER Documentation Chief Complaint Chief Complaint headache, both eye pain,sore throat, anxiety HPI This a 56-year-old female who is here with multiple complaints. She is complaining of bilateral temporal headache has been there for for 5 days. The pain is throbbing there is no photophobia or phonophobia. The headache is a chronic problem. She is also complaining of some pain behind her eyes. No fever no neck pain. Also complains of anxiety attacks which are chronic. Also complains of a scratchy throat. She is also complaining of a one-year history of a red sunburn-like skin rash. Denies any chest pain shortness of breath abdominal pain vomiting or diarrhea ROS All systems reviewed and are negative except as per history of present illness. Medications Home Meds Active Scripts Tramadol HCl (Tramadol HCl) 50 Mg Tablet, 50 MG PO Q6, #20 TAB Prov:YAMINI CASTILLO DO 01/03/17 Allergies Allergies: Coded Allergies: No Known Allergy (Unverified , 09/30/16) PMhx/Soc History of Surgery: Yes (Cholecystectomy,Incarcerated Hernia Repair) Anesthesia Reaction: No Hx Neurological Disorder: No Hx Respiratory Disorders: No Hx Cardiac Disorders: Yes (HTN) Hx Psychiatric Problems: No Hx Miscellaneous Medical Probl: Yes Hx Alcohol Use: No Hx Substance Use: No Hx Tobacco Use: No FmHx Family History: No coronary disease Physical Exam Vitals Vital Signs Date Time Temp Pulse Resp B/P Pulse Ox O2 Delivery O2 Flow Rate FiO2 01/02/17 20:18 98.2 97 20 145/84 99 Physical Exam Const: Well-developed, well-nourished Head: Atraumatic, normocephalic Eyes: Normal Conjunctiva, PERRLA, EOMI, normal sclera, no nystagmus ENT: Normal External Ears, Nose and Mouth, moist mucus membranes. Neck: Full range of motion. No meningismus, no lymphadenopathy. Resp: Clear to auscultation bilaterally, no wheezing, rhonchi, rales Cardio: Regular rate and rhythm, no murmurs, S1 S2 present Abd: Soft, non tender x 4, non distended. Normal bowel sounds, no guarding or rebound, no pulsitile abdominal masses or bruits Skin: No petechiae sunburn-like rash to the upper extremities no ecchymosis , no maculopapular rash Back: No midline or flank tenderness Ext: No cyanosis, or edema, FROM x 4, normal inspection, neurovascularly intact x 4 Neur: Awake and alert, STR 5/5 x 4, sensation intact x 4, no focal findings, cerebellum intact Psych: Normal Mood and Affect Result Diagram: 01/02/17 2345 01/02/17 2345 Results 24 hrs Laboratory Tests Test 01/02/17 23:45 White Blood Count 7.810^3/ul Red Blood Count 4.3010^6/ul Hemoglobin 12.7g/dl Hematocrit 38.6% Mean Corpuscular Volume 89.8fl Mean Corpuscular Hemoglobin 29.5pg Mean Corpuscular Hemoglobin Concent 32.9g/dl Red Cell Distribution Width 12.8% Platelet Count 65858^3/UL Mean Platelet Volume 11.2fl Neutrophils % 55.7% Lymphocytes % 32.8% Monocytes % 8.1% Eosinophils % 2.8% Basophils % 0.5% Nucleated Red Blood Cells % 0.0/100WBC Neutrophils # 4.310^3/ul Lymphocytes # 2.610^3/ul Monocytes # 0.610^3/ul Eosinophils # 0.210^3/ul Basophils # 0.010^3/ul Nucleated Red Blood Cells # 0.010^3/ul Sodium Level 146mmol/L Potassium Level 4.0mmol/L Chloride Level 112mmol/L Carbon Dioxide Level 22mmol/L Anion Gap 16 Blood Urea Nitrogen 16mg/dl Creatinine 0.81mg/dl Glucose Level 102mg/dl Calcium Level 9.3mg/dl Total Bilirubin 0.1mg/dl Direct Bilirubin 0.00mg/dl Indirect Bilirubin 0.1mg/dl Aspartate Amino Transf (AST/SGOT) 15IU/L Alanine Aminotransferase (ALT/SGPT) 29IU/L Alkaline Phosphatase 103IU/L Troponin I < 0.012ng/ml Total Protein 7.3g/dl Albumin 3.9g/dl Globulin 3.40g/dl Albumin/Globulin Ratio 1.14 Procedures/MDM PROCEDURE: CT brain without contrast. CLINICAL INDICATION: Headache. TECHNIQUE: CT scan of the brain was performed on a multi-detector high- resolution CT scanner. Contiguous axial images were obtained from the skull base to the vertex without intravenous contrast. Coronal and sagittal reformatted images were also obtained. Images were reviewed on the PACS workstation. DICOM images are available. One or more of the following dose reduction techniques were used: - Automated exposure control. - Adjustment of the mA and/or kV according to patient size. - Use of iterative reconstruction technique. Exam CTD/vol = 41.12 mGy. Total exam DLP = 720.23 mGy-cm. COMPARISON: None. 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 The corpus callosum is mildly hypoplastic. The ventricles and cortical sulci are prominent consistent with mild cerebral volume loss. There are no areas of abnormal attenuation within the brain parenchyma. There is no mass effect or midline shift. There is no intracranial hemorrhage or abnormal extra-axial collection. The calvarium is intact. There is no evidence of fracture. Visualized paranasal sinuses and mastoid air cells are clear. IMPRESSION: No acute intracranial abnormality identified. 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 Mild cerebral volume loss. .Rashad Jaquez MD, MD Date Time Electronically viewed and signed by .Rashad Jaquez MD, MD on 01/03/2017 00:05 .T/ CC: YAMINI CASTILLO DO PROCEDURE: XR Chest. CLINICAL INDICATION: Shortness of breath TECHNIQUE: Single portable view of the chest was obtained COMPARISON: DR VILLAREAL 09/30/2016 FINDINGS: The trachea is midline. The cardiac silhouette and pulmonary vascularity are within normal limits. The lungs are clear. The costophrenic angles are sharp. IMPRESSION: 1. No evidence of acute cardiopulmonary disease. RPTAT: AAPP Physician Daina Date Time Electronically viewed and signed by Physician Diana on 01/02/2017 23:41 JL/ CC: YAMINI CASTILLO DO Patient's CAT scan is negative chest x-ray was unremarkable as well as blood work. Patient will be discharged home with some tramadol. Patient has multiple complaints that are nonspecific did not point to more uncertain etiology. Workup is unremarkable discharged home in stable condition Departure Diagnosis: Primary Impression: Multiple complaints Additional Impression: Headache Headache type: unspecified Headache chronicity pattern: unspecified pattern Intractability: not intractable Qualified Code: R51 - Nonintractable headache, unspecified chronicity pattern, unspecified headache type Condition: Stable YAMINI CASTILLO DO Jan 02, 2017 23:55
--- NOTE | 2017-01-03 00:06 | RADRPT ---
PROCEDURE: CT brain without contrast. CLINICAL INDICATION: Headache. TECHNIQUE: CT scan of the brain was performed on a multi-detector high-resolution CT scanner. Co ntiguous axial images were obtained from the skull base to the vertex without intravenous contrast. Coronal and sagittal reformatted images were also obtained. Images were reviewed on the PACS works tation. DICOM images are available. One or more of the following dose reduction techniques were used: - Automated exposure control. - Adjustment of the mA and/or kV according to patient size. - Use of iterative reconstruction technique. Exam CTD/vol = 41.12 mGy. Total exam DLP = 720.23 mGy-cm. COMPARISON: None. 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 The corpus callosum is mildly hypoplastic. The ventricles and cortical horton lci are prominent consistent with mild cerebral volume loss. There are no areas of abnormal attenuat ion within the brain parenchyma. There is no mass effect or midline shift. There is no intracrania l hemorrhage or abnormal extra-axial collection. The calvarium is intact. There is no evidence of fracture. Visualized paranasal sinuses and mastoi d air cells are clear. IMPRESSION: No acute intracranial abnormality identified. 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 Mild cerebral volume loss. .Rashad Jaquez MD, MD Date Time Electronically viewed and signed by .Rashad Jaquez MD, MD on 01/03/2017 00:05 .T/
[2017-01-03 00:27] LABS: BASOPHILS % 0.5 % (0.0-2.0); EOSINOPHILS # 0.2 10^3/ul (0.0-0.5); EOSINOPHILS % 2.8 % (0.0-7.0); HEMATOCRIT 38.6 % (37.0-47.0); HEMOGLOBIN 12.7 g/dl (12.0-16.0); LYMPHOCYTES # 2.6 10^3/ul (0.8-2.9); LYMPHOCYTES % 32.8 % (15.0-51.0); MEAN CORPUSCULAR HEMOGLOBIN 29.5 pg (29.0-33.0); MEAN CORPUSCULAR HGB CONC 32.9 g/dl (32.0-37.0); MEAN CORPUSCULAR VOLUME 89.8 fl (82.0-101.0); MEAN PLATELET VOLUME 11.2 fl (7.4-10.4); MONOCYTE # 0.6 10^3/ul (0.3-0.9); MONOCYTES % 8.1 % (0.0-11.0); NEUTROPHIL # 4.3 10^3/ul (1.6-7.5); NEUTROPHILS % 55.7 % (39.0-77.0); PLATELET COUNT 239 10^3/UL (140-415); RED CELL DISTRIBUTION WIDTH 12.8 % (11.5-14.5); WHITE BLOOD COUNT 7.8 10^3/ul (4.8-10.8)
[2017-01-03 00:46] LABS: ALANINE AMINOTRANSFERASE 29 IU/L (13-69); ALBUMIN 3.9 g/dl (3.3-4.9); ALBUMIN/GLOBULIN RATIO 1.14; ALKALINE PHOSPHATASE 103 IU/L (42-121); ANION GAP 16 (8-16); ASPARTATE AMINO TRANSFERASE 15 IU/L (15-46); BILIRUBIN,INDIRECT 0.1 mg/dl (0-1.1); BILIRUBIN,TOTAL 0.1 mg/dl (0.2-1.3); BLOOD UREA NITROGEN 16 mg/dl (7-20); CALCIUM 9.3 mg/dl (8.4-10.2); CARBON DIOXIDE 22 mmol/L (21-31); CHLORIDE 112 mmol/L (97-110); CREATININE 0.81 mg/dl (0.44-1.00); GLUCOSE 102 mg/dl (70-220); SODIUM 146 mmol/L (135-144); TOTAL PROTEIN 7.3 g/dl (6.1-8.1)
[2017-01-03 01:00] LABS: TROPONIN-I < 0.012 ng/ml (0.00-0.12)
[2017-01-03] MEDS ORDERED: TRAM50TA2 PO (01:04)
[2017-01-03 01:20] VITALS: BP 133/64; PULSE 77; RESP 18; TEMP 98
[2017-01-03] MEDS ORDERED: NAPR-260 PO (22:12)
== END 2017-01-03 01:28 | disposition home or self-care (01) ==
LOC: FTE 20:12 → E/R 01-03 01:28
DX: R51 Headache (principal); I10 Essential (primary) hypertension
CPT/HCPCS: 36415; 70450; 71010; 80053; 84484; 85025; 93005

== ENCOUNTER 2017-01-03 20:15 | Emergency (ER) | payer MEDICARE, OTHER ==
[~2017-01-03] VITALS: Ht 162.6 cm; Wt 128.2 kg
[~2017-01-03 20:15] MED LIST changes: -ASPI81TA3 PO; -CEPH-443 PO; -CEPH500C PO; -CLOT30CR24 TOP; -DOCU-144 PO; -FAMO-96 PO; -HYDR-902 PO; -NEOM1PAC TP; -Oxycodone/Acetamin (5/325) PO; -SENN-53 PO; -SULF1TAB31 PO
[2017-01-03 20:21] VITALS: Ht 162.6 cm; Wt 128.2 kg
[2017-01-03] MEDS ORDERED: KETOROLAC 30 MG INJ IM STA (22:10)
[2017-01-03] MEDS ORDERED: NAPR-260 PO (22:12)
--- NOTE | 2017-01-03 22:20 | RADRPT ---
PROCEDURE: Chest xray. CLINICAL INDICATION: Chest pain TECHNIQUE: Portable semiupright COMPARISON: 01/02/2017 FINDINGS: The cardiomediastinal silhouette is within normal limits. The lungs are well expanded and show norm al vascularity. No focal opacity, pleural effusion, or pneumothorax is identified. The skeletal st ructures and soft tissues are unremarkable. IMPRESSION: No acute intrathoracic abnormality. RPTAT:HKMK .Zo Pedersen MD, MD Date Time Electronically viewed and signed by .Zo Pedersen MD, MD on 01/03/2017 22:19 .K/
--- NOTE | 2017-01-03 22:24 | ERD ---
ER Documentation Chief Complaint Chief Complaint CP today HPI 56-year-old woman with a long history of severe anxiety and recurrent chest pain presents with similar episodes of sharp nonexertional nonradiating chest pain bitemporal headache. She has these symptoms on a weekly basis. She denies suicidal homicidal ideation, no fevers or chills, no cough, no calf or leg swelling, no blurry vision, no weakness in her arms or legs. Patient also has a history of drug abuse. ROS All systems reviewed and are negative except as per history of present illness. Medications Home Meds Active Scripts Naproxen* (Naprosyn*) 500 Mg Tablet, 500 MG PO BID Y for PAIN AND/OR INFLAMMATION, #30 TAB Prov:DAWNA SMITH MD 01/03/17 Tramadol HCl (Tramadol HCl) 50 Mg Tablet, 50 MG PO Q6, #20 TAB Prov:YAMINI CASTILLO DO 01/03/17 Allergies Allergies: Coded Allergies: No Known Allergy (Unverified , 09/30/16) PMhx/Soc Severe anxiety, chronic chest pain, Cholecystectomy, Incarcerated Hernia Repair History of Surgery: Yes (Cholecystectomy,Incarcerated Hernia Repair) Anesthesia Reaction: No Hx Neurological Disorder: No Hx Respiratory Disorders: No Hx Cardiac Disorders: Yes (HTN) Hx Psychiatric Problems: No Hx Miscellaneous Medical Probl: Yes Hx Alcohol Use: No Hx Substance Use: No Hx Tobacco Use: No Smoking Status: Never smoker FmHx Family History: No diabetes Physical Exam Vitals Vital Signs Date Time Temp Pulse Resp B/P Pulse Ox O2 Delivery O2 Flow Rate FiO2 01/03/17 23:49 99.2 89 20 135/77 99 Room Air 01/03/17 20:21 99.2 88 22 142/66 94 Physical Exam GENERAL: Well-developed, well-nourished, well-hydrated, appears anxious, afebrile HEENT: Moist mucous membranes, pink conjunctiva, no cervical spine tenderness or step-off deformities, no goiter, no jaundice or icterus, extraocular movements intact without pain. No submandibular induration, and no pharyngeal erythema NEURO: Alert and oriented 3, cranial nerves II through XII intact bilaterally, pupils equal round reactive to light, no focal deficits or facial asymmetry, sensation intact distally Strength 5/5 in upper and lower extremities bilaterally CARDIAC: Regular rate and rhythm, no murmurs rubs or gallops LUNGS: Clear bilaterally no wheezing crackles or stridor ABDOMEN: Soft nontender, no guarding, no rigidity, no rebound, no psoas sign no obturator sign. Normoactive bowel sounds SKIN: Warm and dry to touch, no abrasions, contusions, or hematomas, no lacerations, no ecchymosis, no target lesions, and without ulcers EXTREMITIES: No clubbing cyanosis or edema, calves are bilaterally symmetrical, no Homans sign, no popliteal cord sign. Distal pulses equal and bilateral PSYCH: Anxious Result Diagram: 01/03/17215401/03/172154 Results 24 hrs Laboratory Tests Test 01/03/17 21:55 White Blood Count 7.410^3/ul Red Blood Count 4.2010^6/ul Hemoglobin 12.4g/dl Hematocrit 37.9% Mean Corpuscular Volume 90.2fl Mean Corpuscular Hemoglobin 29.5pg Mean Corpuscular Hemoglobin Concent 32.7g/dl Red Cell Distribution Width 13.0% Platelet Count 77828^3/UL Mean Platelet Volume 11.1fl Neutrophils % 58.0% Lymphocytes % 29.2% Monocytes % 9.2% Eosinophils % 2.8% Basophils % 0.5% Nucleated Red Blood Cells % 0.0/100WBC Neutrophils # 4.310^3/ul Lymphocytes # 2.210^3/ul Monocytes # 0.710^3/ul Eosinophils # 0.210^3/ul Basophils # 0.010^3/ul Nucleated Red Blood Cells # 0.010^3/ul Sodium Level 142mmol/L Potassium Level 4.0mmol/L Chloride Level 108mmol/L Carbon Dioxide Level 22mmol/L Anion Gap 16 Blood Urea Nitrogen 18mg/dl Creatinine 0.89mg/dl Glucose Level 104mg/dl Calcium Level 9.2mg/dl Troponin I < 0.012ng/ml Current Medications Medications (Trade) Dose Ordered Sig/Mg Route PRN Reason Start Time Stop Time Status Last Admin Dose Admin Ketorolac Tromethamine (Toradol) 30 mg ONCE STAT IM 01/03/17 22:10 01/03/17 22:11 DC 01/03/17 22:20 Lorazepam (Ativan) 0.5 mg ONCE ONCE PO 01/03/17 22:30 01/03/17 22:31 DC 01/03/17 22:19 Procedures/MDM IV line was established 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 Patient was afebrile EKG performed, read by me: 89 bpm, normal sinus rhythm, normal axis, no acute ST segment changes, narrow QRS complex, with good R-wave progression in precordial leads. Chest X-ray 1V Interpreted by me: Soft Tissue: No acute abnormalities Bones: No acute abnormalities Mediastinum/Cardiac Silhouette/Lungs: No acute abnormalities I provided reassurance to the patient and also administered lorazepam 0.5 mg p.o. and Toradol 30 mg IM 1. CBC and electrolytes were normal, troponin was negative. Symptoms resolved. Differential diagnoses considered, included but not limited to acute coronary syndrome, pulmonary embolism, aortic dissection, abdominal aortic aneurysm, sepsis, stroke, meningitis, encephalitis, pneumonia, appendicitis, cholecystitis , bowel obstruction, pyelonephritis, nephrolithiasis, cystitis, as well as metabolic, hematologic, and electrolyte abnormalities. As well as abscess, cellulitis, fractures, and dislocations. Patient feels much better at this time, and vital signs are normal, symptoms have improved. I did give strict instructions to return to the ED if symptoms continue or worsen, patient will otherwise follow-up with primary care physician. Patient understood instructions and agreed to plan. Disclaimer: Inadvertent spelling and grammatical errors are likely due to EHR/ dictation software use and do not reflect on the overall quality of patient care. Also, please note that the electronic time recorded on this note does not necessarily reflect the actual time of the patient encounter. Departure Diagnosis: Primary Impression: Headache Headache type: tension-type Headache chronicity pattern: acute headache Intractability: not intractable Qualified Code: G44.209 - Acute non intractable tension-type headache Additional Impressions: Chest pain Chest pain type: unspecified Qualified Code: R07.9 - Chest pain, unspecified type Anxiety reaction Condition: Good Patient Instructions: Anxiety Reaction, Chest Pain, Uncertain Cause, Headache, Tension Referrals: COMMUNITY CLIN[facility] YOU HAVE RECEIVED A MEDICAL SCREENING EXAM AND THE RESULTS INDICATE THAT YOU DO NOT HAVE A CONDITION THAT REQUIRES URGENT TREATMENT IN THE EMERGENCY DEPARTMENT. FURTHER EVALUATION AND TREATMENT OF YOUR CONDITION CAN WAIT UNTIL YOU ARE SEEN IN YOUR DOCTORS OFFICE WITHIN THE NEXT 1-2 DAYS. IT IS YOUR RESPONSIBILITY TO MAKE AN APPOINTMENT FOR FOLOW-UP CARE. IF YOU HAVE A PRIMARY DOCTOR --you should call your primary doctor and schedule an appointment IF YOU DO NOT HAVE A PRIMARY DOCTOR YOU CAN CALL OUR PHYSICIAN REFERRAL HOTLINE AT IF YOU CAN NOT AFFORD TO SEE A PHYSICIAN YOU CAN CHOSE FROM THE FOLLOWING [facility] [address] [facility] [address] [facility] [address] [facility] [address] [facility] [address] [facility]. [facility]. [address] DAWNA GARCIA MD Jan 03, 2017 22:24
[2017-01-03] MEDS ORDERED: LORAZEPAM 0.5 MG TAB PO ONE (22:30)
[2017-01-03 22:46] LABS: BASOPHILS % 0.5 % (0.0-2.0); EOSINOPHILS # 0.2 10^3/ul (0.0-0.5); EOSINOPHILS % 2.8 % (0.0-7.0); HEMATOCRIT 37.9 % (37.0-47.0); HEMOGLOBIN 12.4 g/dl (12.0-16.0); LYMPHOCYTES # 2.2 10^3/ul (0.8-2.9); LYMPHOCYTES % 29.2 % (15.0-51.0); MEAN CORPUSCULAR HEMOGLOBIN 29.5 pg (29.0-33.0); MEAN CORPUSCULAR HGB CONC 32.7 g/dl (32.0-37.0); MEAN CORPUSCULAR VOLUME 90.2 fl (82.0-101.0); MEAN PLATELET VOLUME 11.1 fl (7.4-10.4); MONOCYTE # 0.7 10^3/ul (0.3-0.9); MONOCYTES % 9.2 % (0.0-11.0); NEUTROPHIL # 4.3 10^3/ul (1.6-7.5); PLATELET COUNT 247 10^3/UL (140-415); WHITE BLOOD COUNT 7.4 10^3/ul (4.8-10.8)
[2017-01-03 23:10] LABS: ANION GAP 16 (8-16); BLOOD UREA NITROGEN 18 mg/dl (7-20); CALCIUM 9.2 mg/dl (8.4-10.2); CARBON DIOXIDE 22 mmol/L (21-31); CHLORIDE 108 mmol/L (97-110); CREATININE 0.89 mg/dl (0.44-1.00); GLUCOSE 104 mg/dl (70-220); SODIUM 142 mmol/L (135-144)
[2017-01-03 23:21] LABS: TROPONIN-I < 0.012 ng/ml (0.00-0.12)
[2017-01-03 23:49] VITALS: BP 135/77; PULSE 89; RESP 20; TEMP 99.2
== END 2017-01-03 23:50 | disposition home or self-care (01) ==
LOC: E/R 20:15
DX: G44.209 Tension-type headache, unspecified, not intractable (principal); F41.1 Generalized anxiety disorder; I10 Essential (primary) hypertension
CPT/HCPCS: 36415; 71010; 80048; 84484; 85025; 96372; 99285; J1885

== ENCOUNTER 2017-01-05 15:33 | Emergency (ER) | payer MEDICARE, OTHER ==
[~2017-01-05] VITALS: Ht 162.6 cm; Wt 130.3 kg
[~2017-01-05 15:33] MED LIST changes: +NAPR-260 PO
[2017-01-05 15:40] VITALS: Ht 162.6 cm; Wt 130.3 kg
[2017-01-05] MEDS ORDERED: ACETAMINOPHEN 500 MG TAB PO STA (16:30)
[2017-01-05] MEDS ORDERED: ACET325T33 PO (16:32)
--- NOTE | 2017-01-06 09:12 | ERD ---
ER Documentation Chief Complaint Chief Complaint headache x 4 months HPI 56-year-old female presenting to the emergency department multiple complaints. Patient states that she has moderate headache for the past 4 months. Complains of body aches. She denies any neuro deficits. Patient has been evaluated by this facility a few times this past week. She states that she is not taking any medications for pain ROS All systems reviewed and are negative except as per history of present illness. Medications Home Meds Active Scripts Acetaminophen* (Tylenol*) 325 Mg Tablet, 2 TAB PO Q4 Y for PAIN AND OR ELEVATED TEMP, #20 TAB Prov:KOTA BONILLA PA-C 01/05/17 Naproxen* (Naprosyn*) 500 Mg Tablet, 500 MG PO BID Y for PAIN AND/OR INFLAMMATION, #30 TAB Prov:DAWNA SMITH MD 01/03/17 Tramadol HCl (Tramadol HCl) 50 Mg Tablet, 50 MG PO Q6, #20 TAB Prov:YAMINI CASTILLO DO 01/03/17 Allergies Allergies: Coded Allergies: No Known Allergy (Unverified , 09/30/16) PMhx/Soc History of Surgery: Yes (Cholecystectomy,Incarcerated Hernia Repair) Anesthesia Reaction: No Hx Neurological Disorder: No Hx Respiratory Disorders: No Hx Cardiac Disorders: Yes (HTN) Hx Psychiatric Problems: No Hx Miscellaneous Medical Probl: Yes Hx Alcohol Use: No Hx Substance Use: No Hx Tobacco Use: No Physical Exam Vitals Vital Signs Date Time Temp Pulse Resp B/P Pulse Ox O2 Delivery O2 Flow Rate FiO2 01/05/17 15:40 98.3 92 18 141/79 96 Physical Exam GENERAL: well-developed/well-nourished, in no apparent distress, non-toxic appearing HENT: NC/AT, bilateral tympanic membrane is normal with good cone of light, nares patent, oropharynx clear without exudates EYES: Conjunctiva normal, PERRLA, EOMI, no nystagmus noted NECK: Supple, no lymphadenopathy PULM: CTA bilaterally, no rales, rhonchi, or wheezing heard CV: Normal S1S2, RRR, good capillary refill GI: Soft, non-distended, normal bowel sounds, non-tender BACK: No midline tenderness, no masses, No CVAT EXT: No clubbing, cyanosis, or edema NEURO: Alert and orientated to person, place, and time. CN II-IIX intact. Gait and coordination were normal. 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 Patient has been evaluated by this facility 2 times this past week I have reviewed patient' s past chart. Patient had blood work that were unremarkable. She has had a negative CT of the head. 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 I discussed for her to continue to take her medications and to follow-up with the primary care physician. In the ED patient was given Tylenol for pain. Discussed return to the ER for any worsening symptoms patient understands and agrees with this plan. There was no evidence of any acute pathology Consulted my supervising physician agrees with plan Departure Diagnosis: Primary Impression: Headache Condition: Stable Patient Instructions: Self-Care for Headaches Referrals: NO PRIMARY,CARE PHYSICIAN (PCP) Additional Instructions: Take all medicines as directed. FOLLOW UP WITH YOUR PRIMARY CARE PHYSICIAN TOMORROW.Return to this facility if you are not improving as expected. KOTA BONILLA PA-C Jan 06, 2017 09:12
== END 2017-01-05 16:57 | disposition home or self-care (01) ==
LOC: FTE 15:33
DX: R51 Headache (principal); I10 Essential (primary) hypertension
CPT/HCPCS: 99283

== ENCOUNTER 2017-01-11 15:47 | Emergency (ER) | payer MEDICARE ==
[~2017-01-11] VITALS: Ht 162.6 cm; Wt 128.5 kg
[~2017-01-11 15:47] MED LIST changes: +ACET325T33 PO
[2017-01-11 15:49] VITALS: Ht 162.6 cm; Wt 128.5 kg
[2017-01-11] MEDS ORDERED: ONDANSETRON 4 MG INJ IV STA (16:36)
[2017-01-11] MEDS ORDERED: morphine 4 MG/ML VIAL IV STA (16:36)
[2017-01-11] MEDS ORDERED: SOD CHLORIDE 0.9% 1,000 ML IV STA (16:36)
[2017-01-11] MEDS ORDERED: NAPR-260 PO (17:01)
--- NOTE | 2017-01-11 17:01 | ERD ---
ER Documentation Chief Complaint Chief Complaint abdominal pain headache and knee pain HPI This is a 56-year-old female with a known history of chronic left knee pain and abdominal pain. The patient indicates the abdominal pain has been persistent for over 1 year. The patient had a hernia repair at that time and has had multiple collections of fluid with a diagnosis of seroma around the repair of the ventral hernia. She indicates however today that she is not experiencing severe abdominal pain and no increase in abdominal girth. This is contrary to the triage note as the patient states when she asked her main complaint she indicated that her main concern today was a headache which was a bandlike headache present for over 2 months with no changes in vision dizziness or blurriness. She denies any recent remote head trauma. She denies any neck pain. She has had no fevers no shaking or chills. In addition to her complaints she also stated she has had been experiencing left knee pain that has been present for over several years. She has had a recent MRI of the left knee that indicated ligamentous injury and she has been followed up with an orthopedic surgeon at [facility]. She denies any swelling of her left knee but indicates that she will often experience buckling of the left knee while ambulating. She denies any chest pain or pressure that radiates to the neck arm back or jaw. She is no shortness of breath at rest or exertion. She did indicate that 2 weeks ago she saw her general surgeon Dr. Sanchez who removed fluid below the umbilicus and since that time she states the abdominal pain has been nonexistent. ROS All systems reviewed and are negative except as per history of present illness. Medications Home Meds Discontinued Scripts Acetaminophen* (Tylenol*) 325 Mg Tablet, 2 TAB PO Q4 Y for PAIN AND OR ELEVATED TEMP, #20 TAB Prov:KOTA BONILLA PA-C 01/05/17 Naproxen* (Naprosyn*) 500 Mg Tablet, 500 MG PO BID Y for PAIN AND/OR INFLAMMATION, #30 TAB Prov:DAWNA SMITH MD 01/03/17 Tramadol HCl (Tramadol HCl) 50 Mg Tablet, 50 MG PO Q6, #20 TAB Prov:YAMINI CASTILLO DO 01/03/17 Allergies Allergies: Coded Allergies: No Known Allergy (Unverified , 01/11/17) PMhx/Soc History of Surgery: Yes (Cholecystectomy,Incarcerated Hernia Repair) Anesthesia Reaction: No Hx Neurological Disorder: No Hx Respiratory Disorders: No Hx Cardiac Disorders: Yes (HTN) Hx Psychiatric Problems: No Hx Miscellaneous Medical Probl: Yes Hx Alcohol Use: No Hx Substance Use: No Hx Tobacco Use: No Smoking Status: Never smoker Physical Exam Vitals Vital Signs Date Time Temp Pulse Resp B/P Pulse Ox O2 Delivery O2 Flow Rate FiO2 01/11/17 15:49 98.0 95 24 162/81 98 Physical Exam Constitutional:Well-developed. Well-nourished. HEENT:Normocephalic. Atraumatic.Pupils were equal round reactive to light. Moist mucous membranes.No tonsillar exudates. Fundoscopy exam shows sharp optic disks and venous pulsations were present. Neck: No nuchal rigidity. No lymphadenopathy. No posterior cervical spine tenderness or step-offs. Respiratory: Not using accessory muscles of respiration.Lungs were clear to auscultation bilaterally. No rhonchi. No rales. No wheezing. Cardiovascular: Regular rate regular rhythm.No murmurs. No rubs were appreciated.S1, S2 normal. Distal pulses are palpable 2+ bilaterally. GI: Abdomen was obese so exam is limited due to body habitus but nontender. Surgical incision scar vertical beneath the umbilicus with no surrounding redness erythremia fluctuance or induration. Non Distended. No pulsatile abdominal masses or bruits. No rebound. No guarding. Bowel sounds were present and normal. Muscle skeletal: Full range of motion of both the upper and lower extremities bilaterally.Normal muscle tone.No assymetrical calf tenderness or swelling. No tenderness over the left patella. Bonnie's test negative bilaterally no laxity on valgus or varus stress testing of the left or the right knee Skin: No petechia, no purpura. No lesions on the palms or the soles of the feet. No maculopapular rash. Patient has a significant amount of facial hair and indicates she is not on hormone replacement therapy or testosterone treatment NEURO: Patient was alert, awake, orientated x3.No facial droop. Gait observed and normal with no ataxia.Speech had regular rate and rhythm. No focal neurological deficits. Results 24 hrs Current Medications Medications (Trade) Dose Ordered Sig/Mg Route PRN Reason Start Time Stop Time Status Last Admin Dose Admin Sodium Chloride (NS) 1,000 ml @ 1,000 mls/hr Q1H STAT IV 01/11/17 16:36 01/11/17 17:35 Morphine Sulfate (morphine) 4 mg ONCE STAT IV 01/11/17 16:36 01/11/17 16:37 DC Ondansetron HCl (Zofran Inj) 4 mg ONCE STAT IV 01/11/17 16:36 01/11/17 16:37 DC Procedures/MDM The patient presented to the emergency department with a subacute headache that began within weeks to months of onset. My differential diagnosis included but was not limited to chronic subdural hematoma, brain tumor, brain abscess, chronic sinusitis, temporal arteritis, temporomandibular joint syndrome, psuedotumor cerebri, glaucoma, migrane, HTN, intracranial hemorrhage or cerebral ischemia. This was not the patients worse headache of their life. The patient had a complete neurologic and fundoscopic exam performed by myself that was normal with no focal neurological deficits or retinal hemorrhage. The patient stated this headache was not severe or distinct from other headaches and the history with the physical exam findings did not likely suggest SAH. Therefore, I did not feel it was clinically necessary to perform a lumbar puncture and CSF analysis. I did obtain a CT scan of the patient's head which showed no increased intracranial pressure mass-effect or midline shift. I did feel the patient's symptoms are likely result of a tension headache. She received anti- inflammatories IV morphine and Zofran with improvement of her pain. Utilizing the [place] ankle and knee rules I did not feel is necessary to obtain any radiographic imaging of the patient's left knee. Her left knee pain has been chronic and she had a recent MRI that indicated ligamentous injury and is following up with this on an outpatient basis. There did not appear to be any overlying skin infections of the abdomen. The patient had no peritoneal signs of the abdomen to suggest a surgical process and therefore did not feel is necessary at this time to obtain a CT scan of the abdomen. I reviewed the patient's medical records that she had a CT scan of the abdomen and pelvis without contrast July 10, 2016 at that time the patient had anterior abdominal periumbilical fluid collections after repair of her ventral hernia that this did not appear to be present on physical exam today. The patient had improvement of her pain and felt comfortable being discharged home. The patient was discharged home in fair condition. They were instructed to return to the emergency department at any time if there was any worsening of their condition. The patient stated they would follow up with their PCP in the next 24-48 hours to initiate a suitable medication regimen under the care of their PCP as well as to allow their PCP to monitor any drug reactions. The patient was discharged home with prescriptions after they gave informed consent to the new medication. They were also fully informed by myself on the adverse effects and adverse drug interactions in order to provide adequate safeguards to prevent possible adverse reactions to medications. Departure Diagnosis: Primary Impression: Tension headache Condition: DMITRIY Owusu Jan 11, 2017 17:00
[2017-01-11 17:02] LABS: BASOPHIL # 0.1 10^3/ul (0.0-0.1); BASOPHILS % 0.8 % (0.0-2.0); EOSINOPHILS # 0.2 10^3/ul (0.0-0.5); EOSINOPHILS % 2.3 % (0.0-7.0); HEMATOCRIT 41.6 % (37.0-47.0); HEMOGLOBIN 13.8 g/dl (12.0-16.0); LYMPHOCYTES # 1.8 10^3/ul (0.8-2.9); LYMPHOCYTES % 24.4 % (15.0-51.0); MEAN CORPUSCULAR HEMOGLOBIN 29.6 pg (29.0-33.0); MEAN CORPUSCULAR HGB CONC 33.2 g/dl (32.0-37.0); MEAN CORPUSCULAR VOLUME 89.3 fl (82.0-101.0); MEAN PLATELET VOLUME 11.6 fl (7.4-10.4); MONOCYTE # 0.6 10^3/ul (0.3-0.9); NEUTROPHIL # 4.7 10^3/ul (1.6-7.5); NEUTROPHILS % 64.4 % (39.0-77.0); PLATELET COUNT 240 10^3/UL (140-415); RED BLOOD COUNT 4.66 10^6/ul (4.20-5.40); WHITE BLOOD COUNT 7.3 10^3/ul (4.8-10.8)
[2017-01-11 17:24] LABS: ALBUMIN 4.5 g/dl (3.3-4.9); ALBUMIN/GLOBULIN RATIO 1.36; BILIRUBIN,INDIRECT 0.2 mg/dl (0-1.1); BILIRUBIN,TOTAL 0.2 mg/dl (0.2-1.3); CALCIUM 9.5 mg/dl (8.4-10.2); CREATININE 0.82 mg/dl (0.44-1.00); POTASSIUM 4.3 mmol/L (3.5-5.1); TOTAL PROTEIN 7.8 g/dl (6.1-8.1)
[2017-01-11] MEDS ORDERED: KETOROLAC 30 MG INJ IV STA (19:11)
--- NOTE | 2017-01-11 19:18 | RADRPT ---
PROCEDURE: CT HEAD WITHOUT CONTRAST: CLINICAL INDICATION: 56-year of age, female. Headache for 3-month TECHNIQUE: CT of the head was performed without IV contrast. Coronal and sagittal reformatted images were obtained from the axial source images. Images were reviewed on a high-resolution PACS workstat ion. DICOM images are available. Dose information: The estimated radiation dose (CTDIvol mGy) for each series in this exam is 45. Th e estimated cumulative dose (DLP mGy-cm) is 720. One or more of the following dose reduction techniques were used: - Automated exposure control. - Adjustment of the mA and/or kV according to patient size. - Use of iterative reconstruction technique. COMPARISON: January 02, 2017 FINDINGS: BRAIN PARENCHYMA: Negative for evidence of acute intraparenchymal hemorrhage, significant mass effect or midline shift . Sher-white matter differentiation is maintained. Mild diffuse cerebral tissue loss. VENTRICLES AND EXTRA-AXIAL SPACES: Ventricles and sulci are proportionate in keeping with mild cerebral tissue loss that is unchanged. Midline is central. Incidental note is made of a cavum vergae. 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 No abnormal extra-axial fluid collections are identified. Negative for evidence of acute subarachnoi d or extra-axial hemorrhage. VASCULATURE: Negative for significant intracranial atherosclerosis. VISUALIZED PARANASAL SINUSES: Clear. MASTOID AIR CELLS: Clear. BONES: No focal abnormality. Additional comment: None. IMPRESSION: 1. Negative for evidence of an acute abnormality. Negative for evidence of acute intracranial hemor rhage or mass effect. Cause for headache is not evident. 2. 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 Mild diffuse cerebral tissue loss. RPTAT: HCTS Physician Fabrice Date Time Electronically viewed and signed by Physician Fabrice on 01/11/2017 19:17 CS/
[2017-01-11 19:25] VITALS: BP 167/76; PULSE 88; RESP 17; TEMP 98.3
== END 2017-01-11 20:33 | disposition home or self-care (01) ==
LOC: E/R 15:47
DX: G44.209 Tension-type headache, unspecified, not intractable (principal); I10 Essential (primary) hypertension
CPT/HCPCS: 70450; 80053; 82150; 83690; 85025; 96374; 96375; 99285; J1885; J2270; J2405; J7030

== ENCOUNTER 2017-01-12 20:29 | Emergency (ER) | payer MEDICARE, OTHER ==
[~2017-01-12] VITALS: Ht 162.6 cm; Wt 129.3 kg
[~2017-01-12 20:29] MED LIST changes: -ACET325T33 PO; -TRAM50TA2 PO
[2017-01-12 20:31] VITALS: Ht 162.6 cm; Wt 129.3 kg
[2017-01-12 22:10] LABS: BASOPHIL # 0.1 10^3/ul (0.0-0.1); BASOPHILS % 0.7 % (0.0-2.0); EOSINOPHILS # 0.2 10^3/ul (0.0-0.5); EOSINOPHILS % 2.7 % (0.0-7.0); HEMATOCRIT 38.1 % (37.0-47.0); HEMOGLOBIN 12.8 g/dl (12.0-16.0); LYMPHOCYTES # 2.1 10^3/ul (0.8-2.9); MEAN CORPUSCULAR HEMOGLOBIN 29.8 pg (29.0-33.0); MEAN CORPUSCULAR HGB CONC 33.6 g/dl (32.0-37.0); MEAN CORPUSCULAR VOLUME 88.8 fl (82.0-101.0); MEAN PLATELET VOLUME 10.3 fl (7.4-10.4); MONOCYTE # 0.5 10^3/ul (0.3-0.9); MONOCYTES % 6.9 % (0.0-11.0); NEUTROPHIL # 4.6 10^3/ul (1.6-7.5); NEUTROPHILS % 61.6 % (39.0-77.0); PLATELET COUNT 243 10^3/UL (140-415); RED BLOOD COUNT 4.29 10^6/ul (4.20-5.40); RED CELL DISTRIBUTION WIDTH 12.9 % (11.5-14.5); WHITE BLOOD COUNT 7.4 10^3/ul (4.8-10.8)
[2017-01-12 22:35] LABS: ALBUMIN 3.7 g/dl (3.3-4.9); ALBUMIN/GLOBULIN RATIO 1.08; BILIRUBIN,INDIRECT 0.2 mg/dl (0-1.1); BILIRUBIN,TOTAL 0.2 mg/dl (0.2-1.3); CALCIUM 9.4 mg/dl (8.4-10.2); CREATININE 0.81 mg/dl (0.44-1.00); POTASSIUM 4.2 mmol/L (3.5-5.1); TOTAL PROTEIN 7.1 g/dl (6.1-8.1)
[2017-01-12 23:40] VITALS: BP 145/70; PULSE 85; RESP 18; TEMP 97.8
[2017-01-13] MEDS ORDERED: ACETAMINOPHEN 325 MG TAB PO ONE
[2017-01-13] MEDS ORDERED: ACETAMINOPHEN 325 MG TAB ONE (00:15)
[2017-01-13 00:30] LABS: ADD UMIC NO; UR ASCORBIC ACID NEGATIVE (NEGATIVE); UR BACTERIA FEW /HPF (NONE SEEN); UR BILIRUBIN (Dip) NEGATIVE (NEGATIVE); UR BLOOD (Dip) NEGATIVE (NEGATIVE); UR CLARITY SLIGHTLY CLOUDY (CLEAR); UR COLOR YELLOW (YELLOW); UR GLUCOSE (Dip) NEGATIVE (NEGATIVE); UR KETONES (Dip) NEGATIVE (NEGATIVE); UR LEUKOCYTE ESTERASE (Dip) NEGATIVE Leu/ul (NEGATIVE); UR MUCUS FEW /HPF (NONE SEEN); UR NITRITE (Dip) NEGATIVE (NEGATIVE); UR RBC 3 /HPF (0-5); UR SQUAMOUS EPITHELIAL CELL FEW /HPF (FEW); UR TOTAL PROTEIN (Dip) NEGATIVE (NEGATIVE); UR UROBILINOGEN (Dip) 1+ mg/dL (NEGATIVE)
[2017-01-13] MEDS ORDERED: TRAM50TA2 PO (00:37)
--- NOTE | 2017-01-20 06:01 | ERD ---
ER Documentation Chief Complaint Chief Complaint LEFT FLANK PAIN X2 DAYS. HPI Is a 48-year-old female left flank pain for the past 2 days. Pain is mild to moderate intensity. No nausea no vomiting fevers no chills. No other current complaints. Pain is mild to moderate intensity. ROS All systems reviewed and are negative except as per history of present illness. Medications Home Meds Active Scripts Tramadol HCl (Tramadol HCl) 50 Mg Tablet, 50 MG PO Q4 Y for PAIN, #20 TAB Prov:CLAUDIA MONTIEL 01/13/17 Naproxen* (Naprosyn*) 500 Mg Tablet, 500 MG PO BID Y for PAIN AND/OR INFLAMMATION, #30 TAB Prov:DMITRIY PEDRAZA 01/11/17 Allergies Allergies: Coded Allergies: No Known Allergy (Unverified , 01/12/17) PMhx/Soc History of Surgery: Yes (Cholecystectomy,Incarcerated Hernia Repair) Anesthesia Reaction: No Hx Neurological Disorder: No Hx Respiratory Disorders: No Hx Cardiac Disorders: Yes (HTN) Hx Psychiatric Problems: No Hx Miscellaneous Medical Probl: Yes Hx Alcohol Use: No Hx Substance Use: No Hx Tobacco Use: No Smoking Status: Never smoker Physical Exam Physical Exam Const: [] Head: Atraumatic Eyes: Normal Conjunctiva ENT: Normal External Ears, Nose and Mouth. Neck: Full range of motion..~ No meningismus. Resp: Clear to auscultation bilaterally Cardio: Regular rate and rhythm, no murmurs Abd: Soft, non tender, non distended. Normal bowel sounds Skin: No petechiae or rashes Back: No midline or flank tenderness Ext: No cyanosis, or edema Neur: Awake and alert Psych: Normal Mood and Affect Results 24 hrs Laboratory Tests Test 01/12/17 22:00 01/12/17 23:30 White Blood Count 7.410^3/ul Red Blood Count 4.2910^6/ul Hemoglobin 12.8g/dl Hematocrit 38.1% Mean Corpuscular Volume 88.8fl Mean Corpuscular Hemoglobin 29.8pg Mean Corpuscular Hemoglobin Concent 33.6g/dl Red Cell Distribution Width 12.9% Platelet Count 13346^3/UL Mean Platelet Volume 10.3fl Neutrophils % 61.6% Lymphocytes % 28.0% Monocytes % 6.9% Eosinophils % 2.7% Basophils % 0.7% Nucleated Red Blood Cells % 0.0/100WBC Neutrophils # 4.610^3/ul Lymphocytes # 2.110^3/ul Monocytes # 0.510^3/ul Eosinophils # 0.210^3/ul Basophils # 0.110^3/ul Nucleated Red Blood Cells # 0.010^3/ul Sodium Level 142mmol/L Potassium Level 4.2mmol/L Chloride Level 108mmol/L Carbon Dioxide Level 25mmol/L Anion Gap 13 Blood Urea Nitrogen 10mg/dl Creatinine 0.81mg/dl Glucose Level 121mg/dl Calcium Level 9.4mg/dl Total Bilirubin 0.2mg/dl Direct Bilirubin 0.00mg/dl Indirect Bilirubin 0.2mg/dl Aspartate Amino Transf (AST/SGOT) 17IU/L Alanine Aminotransferase (ALT/SGPT) 34IU/L Alkaline Phosphatase 84IU/L Total Protein 7.1g/dl Albumin 3.7g/dl Globulin 3.40g/dl Albumin/Globulin Ratio 1.08 Lipase 53U/L Urine Color YELLOW Urine Clarity SLIGHTLY CLOUDY Urine pH 5.0 Urine Specific [place] 1.020 Urine Ketones NEGATIVEmg/dL Urine Nitrite NEGATIVEmg/dL Urine Bilirubin NEGATIVEmg/dL Urine Urobilinogen 1+mg/dL Urine Leukocyte Esterase NEGATIVELeu/ul Urine Microscopic RBC 3/HPF Urine Microscopic WBC 1/HPF Urine Squamous Epithelial Cells FEW/HPF Urine Bacteria FEW/HPF Urine Mucus FEW/HPF Urine Hemoglobin NEGATIVEmg/dL Urine Glucose NEGATIVEmg/dL Urine Total Protein NEGATIVEmg/dl Current Medications Medications (Trade) Dose Ordered Sig/Mg Route PRN Reason Start Time Stop Time Status Last Admin Dose Admin Acetaminophen (Tylenol Tab) 650 mg ONCE ONCE PO 01/13/17 00:00 01/13/17 00:08 DC 01/13/17 00:09 Acetaminophen (Tylenol Tab) 325 mg STK-MED ONCE .ROUTE 01/13/17 00:15 01/13/17 00:16 DC Procedures/MDM Assessment: 48-year-old female as well as provide pain secondary to early UTI. At this point clinically stable. Patient be discharged home on antibiotics. Follow-up in 8 hours for serial abdominal exams. Departure Diagnosis: Primary Impression: Flank pain Condition: Stable Patient Instructions: Flank Pain, Uncertain Cause CLAUDIA MONTIEL Jan 20, 2017 06:01
== END 2017-01-13 00:53 | disposition home or self-care (01) ==
LOC: E/R 20:29
DX: R10.9 Unspecified abdominal pain (principal); I10 Essential (primary) hypertension
CPT/HCPCS: 80053; 81001; 81003; 83690; 85025; 87086; 99283

== ENCOUNTER 2017-01-21 18:00 | Emergency (ER) | payer MEDICARE, OTHER ==
[~2017-01-21] VITALS: Wt 125.6 kg
[~2017-01-21 18:00] MED LIST changes: +TRAM50TA2 PO
== END 2017-01-21 21:04 | disposition left against medical advice (07) ==
LOC: E/R 18:00
DX: Z53.21 Procedure and treatment not carried out due to patient leaving prior to being seen by health care provider (principal)

== ENCOUNTER 2017-06-04 12:36 | Emergency (ER) | END 2017-06-04 18:05 | disposition home or self-care (01) ==